=== PATIENT | male | born 1945 | race Caucasian/White ===

== ENCOUNTER 2017-06-19 16:09 | Emergency (ER) | payer OTHER ==
[~2017-06-19] VITALS: Ht 180.3 cm; Wt 121.2 kg
[~2017-06-19 16:09] MED LIST: CRDCD300 PO; HYDUNK PO; LOSA1TAB PO
[2017-06-19 16:16] VITALS: BP 168/82; PULSE 68; TEMP 36.4; O2SAT 96; Ht 180.3 cm; Wt 121.2 kg
[2017-06-19] MEDS ORDERED: CITA10TA4 PO (16:46)
[2017-06-19] MEDS ORDERED: HYT1 PO (16:46)
[2017-06-19] MEDS ORDERED: HYDR25TA5 PO (16:46)
[2017-06-19] MEDS ORDERED: DILT300C21 PO (16:46)
[2017-06-19] MEDS ORDERED: XYLOCAINE 1%/SOD BICARB 20 ML VIAL INFIL ONE (17:00)
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
== END 2017-06-19 18:48 | disposition home or self-care (01) ==
LOC: C.EDB 16:11 → C.EDD 18:48
DX: S01.01XA Laceration without foreign body of scalp, initial encounter (principal); W22.8XXA Striking against or struck by other objects, initial encounter; Y93.89 Activity, other specified; Y99.8 Other external cause status; I10 Essential (primary) hypertension; Z90.89 Acquired absence of other organs; Z79.899 Other long term (current) drug therapy

== ENCOUNTER 2017-06-30 09:35 | Emergency (ER) | payer OTHER ==
[~2017-06-30] VITALS: Ht 180.3 cm; Wt 121.7 kg
[~2017-06-30 09:35] MED LIST changes: +CITA10TA4 PO; -CRDCD300 PO; +DILT300C21 PO; +HYDR25TA5 PO; -HYDUNK PO; +HYT1 PO; -LOSA1TAB PO
[2017-06-30 09:38] VITALS: BP 168/89; PULSE 63; TEMP 36.4; O2SAT 96; Ht 180.3 cm; Wt 121.7 kg
--- NOTE | 2017-06-30 09:57 | EMERGENCY ROOM VISIT NOTE ---
ED Visit Note First contact with patient: 09:42 CHIEF COMPLAINT: Staple removal HPI: This patient returns to the ED today for removal of janis that were placed 11 days ago on the patient's head. There has been no swelling, redness, or drainage from the wound. The patient feels like the laceration is healing well. REVIEW OF SYSTEMS: A complete 6 point review of systems was reviewed with the patient with pertinent positives and negatives as per history of present illness. All else were negative. PMH: Hypertension MEDS: Citalopram, diltiazem, hydrochlorothiazide, terazosin SOCIAL HISTORY: Patient lives at home. PHYSICAL EXAM: Vital Signs: Reviewed Nurse's notes. There is a stapled wound on the top of the scalp with no signs of infection. There is no erythema, swelling, or tenderness. EMERGENCY DEPARTMENT COURSE: For janis were removed from the scalp without any difficulty and there was no separation of the wound edges. Discharge instructions reviewed, patient was discharged home in good condition. I attest that I have personally reviewed the patient's current medication list. Patient was found to have normal blood pressure on screening and does not require follow-up. Differential diagnosis includes laceration, contusion, fracture, sprain/strain, tendon or ligament injury, neurovascular compromise, foreign body, assault, closed head injury, ICH, and others DIAGNOSIS: Healing laceration and staple removal The chart was completed utilizing Draft Speech voice recognition software. Grammatical errors, random word insertions, pronoun errors, and incomplete sentences are an occasional consequence of this system due to software limitations, ambient noise, and hardware issues. Any formal questions or concerns about the content, text, or information contained within the body of this dictation should be directly addressed to the provider for clarification. Current/Historical Medications Scheduled Citalopram Hydrobromide (Citalopram Hydrobromide), 10 MG PO DAILY Diltiazem Hcl Coated Beads (Cartia Xt), 300 MG PO DAILY Hydrochlorothiazide (Hydrochlorothiazide), 25 MG PO DAILY Terazosin HCl (Terazosin HCl), 1 MG PO HS Allergies Coded Allergies: No Known Allergies (Unverified , 06/19/17) Vital Signs Date Time Temp Pulse Resp B/P (MAP) Pulse Ox O2 Delivery O2 Flow Rate FiO2 06/30/17 09:38 36.4 63 20 168/89 96 Room Air Departure Information Impression Primary Impression: Encounter for removal of janis Additional Impression: Laceration of scalp Dispostion Home / Self-Care Condition GOOD Referrals No Doctor, Assigned (PCP) Patient Instructions ED Stap Removal No Complication, My [facility] Additional Instructions You may wash the remaining crusts off of the wound. Be gentle with washing. Proper wound care is essential for adequate wound healing and infection prevention. You can shower and clean the wound with soap and water. Do not scour over the wound, pat dry with a towel. Do not submerse the wound (i.e. bathe or dish wash) until the wound has fully healed. You can use an antibiotic ointment with a dressing over the wound for the next 3-4 days. After this time you may leave the wound dry and open to the air. Ibuprofen(Motrin, Advil) may be used for fever or pain. Use 400mg every six hours as needed. Take with food. Avoid using more than 2400mg in a 24 hour period. Do not use 2400mg per day for more than three consecutive days without physician direction. Prolonged inappropriate use can lead to stomach upset or ulcers. (AND/OR) Acetaminophen(Tylenol) may be used for fever or pain. Use 500mg every six hours as needed. Avoid using more than 3000mg in a 24 hour period. Follow-up for any concerns or questions. Problem Qualifiers Additional Impression: Laceration of scalp Encounter type: initial encounter Qualified Codes: S01.01XA - Laceration without foreign body of scalp, initial encounter
== END 2017-06-30 10:08 | disposition home or self-care (01) ==
LOC: C.EDB 09:36 → C.EDA 10:08
DX: S01.01XD Laceration without foreign body of scalp, subsequent encounter (principal); X58.XXXD Exposure to other specified factors, subsequent encounter

== ENCOUNTER 2020-08-07 13:47 | Inpatient (IN) ==
[2020-08-07] MEDS ORDERED: ACETAMINOPHEN 1,000 MG/100 ML VIAL IV STA (14:44)
[2020-08-07 15:06] LABS: Basophils # (auto) 0.01 K/uL (0-0.2); Basophils % (auto) 0.1 %; Eosinophils # (auto) 0.02 K/uL (0-0.5); Eosinophils % (auto) 0.2 %; Hematocrit (blood only) 29.7 % (42-52); Hemoglobin 10.3 g/dL (14.0-18.0); Immature Granulocytes # (auto) 0.05 K/uL (0.00-0.02); Immature Granulocytes % (auto) 0.5 %; Lymphocytes # (auto) 0.53 K/uL (1.2-3.4); Lymphocytes % (auto) 4.8 %; Mean Corpuscular Hemoglobin 33.6 pg (25-34); Mean Corpuscular Hgb Conc 34.7 g/dL (32-36); Mean Corpuscular Volume 96.7 fL (80-100); Mean Platelet Volume 11.1 fL (7.4-10.4); Monocytes # (auto) 1.62 K/uL (0.11-0.59); Monocytes % (auto) 14.6 %; Neutrophils # (auto) 8.85 K/uL (1.4-6.5); Neutrophils % (auto) 79.8 %; Platelet Count 153 K/uL (130-400); RDW Coefficient of Variation 13.1 % (11.5-14.5); RDW Standard Deviation 45.4 fL (36.4-46.3); Red Blood Count 3.07 M/uL (4.7-6.1); White Blood Count 11.08 K/uL (4.8-10.8)
--- NOTE | 2020-08-07 15:14 | XRay Report ---
XR knee LT 3V CLINICAL HISTORY: Left knee pain. COMPARISON: None. 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 There are anterior skin janis. There is mild soft tissue edema. No fractures are visualized. IMPRESSION: 1. Mild diffuse soft tissue edema 2. Postsurgical changes of a total left knee arthroplasty 2. No fractures or dislocations identified. ACT 112: Negative or not required by law. Electronically signed by: Edvin Floyd M.D. 08/07/2020 3:13 PM
--- NOTE | 2020-08-07 15:17 | XRay Report ---
XR chest 1V portable HISTORY: Atypical Chest Pain COMPARISON: None. FINDINGS: There is a punctate calcified granuloma within the right lung apex. No pneumothorax. No ple ural effusions. Small patchy density at the left lung base. The heart is enlarged. There are postster notomy changes. No evidence for pulmonary edema. IMPRESSION: 1. Mild cardiomegaly. 2. Patchy density at the left lung base. This could represent atelectasis or pneumonia. ACT 112: Negative or not required by law. Electronically signed by: Sage Silva M.D. 08/07/2020 3:16 PM
--- NOTE | 2020-08-07 15:22 | Emergency Department Note ---
Impression & Plan Generalized weakness, Atrial flutter, Postoperative pain of left knee, On apixaban therapy ED Provider Note NAME: CAMERON CRUZ AGE: 75 SEX: M ARRIVES VIA: Ambulance INFORMANT: Patient, ED PROVIDER(S): Vin Dubose MD CHIEF COMPLAINT: Weakness, post-op knee pain PLAN: Disposition: Admit MEDICAL DECISION MAKING: The patient is a 75-year-old gentleman with a past medical history of PE on Eliquis, HTN, HLD, PAF, recent left total knee replacement on Friday through [facility] orthopedics discharged on Friday where he reports he has been sitting in his recliner since then unable to get up due to pain in his knee and weakness, now presents to the emergency department today accompanied by his because they feel he is unable to manage at home in his current condition. He would be agreeable for admission and inpatient rehab placement if needed. He reports some increased indigestion which reminds him of his prior PE but denies any shortness of breath. He has been taking his Eliquis since his surgery. Denies any fevers, chills, cough congestion, GI or symptoms. He reports feeling a little bit confused related to the pain medication he has been taking but denies any headaches. Denies fevers, cough, congestion, n/v/d. On arrival patient chronically ill-appearing in acute distress, afebrile with stable vital signs. His left knee is moderately swollen appropriate for his postoperative status with janis/incision site clean dry and intact. Range of motion is limited secondary to pain and in setting of his postop status. EKG demonstrates atrial flutter, 95 bpm with PVCs in setting of history of PAF. CXR with most likely atelectasis. Plain films of knee without fracture or dislocation. WBC, 11K, nonspecific. H/H 10.3/29.7 without prior for comparison. Platelets wnl. Chemistry without acidosis. Electrolytes without significant abnormality. Total bilirubin 1.5 with DB 0.4, nonspecific given no abdominal pain. LFTs without significant abnormality. Troponin negative/undetectable. UA without convincing evidence of infection. Covid-[address] head negative for acute process. Given patient's poor functional status at home following his recent surgery, he agrees with plan for admission. Case was discussed with Bonnie Grace, [facility] PAC, with Dr. Sanders [facility] hospitalist who will evaluate the patient for admission. Triage Nursing notes reviewed and agree them. Prior medical records reviewed Vital Signs: reviewed and remarkable for no significant abnormalities Differential diagnosis: Infection, dehydration, metabolic abnormality, hypo/hyperglycemia, electrolyte disturbance, anemia, hypoxia, cardiac sources, intracerebral event, toxicologic, neurologic, as well as other pathologies. ER treatment provided: See below. Diagnostics interpreted by me: ECG: Atrial flutter, 95 bpm, PVCs, incomplete RBBB, ST and TWA, no overt ST elevation. Cardiac Monitoring: An order for continuous cardiac monitoring was placed and demonstrated Atrial flutter, 95 bpm, PVCs. Laboratory studies: See below Imaging studies: See below Consultation(s): Case was discussed with Bonnie Grace [facility], with Dr. Sanders [facility] hospitalist who will evaluate the patient for admission. HPI: The patient is a 75-year-old gentleman with a past medical history of PE on Eliquis, HTN, HLD, PAF, recent left total knee replacement on Friday through [facility] orthopedics discharged on Friday where he reports he has been sitting in his recliner since then unable to get up due to pain in his knee and weakness , now presents to the emergency department today accompanied by his because they feel he is unable to manage at home in his current condition. He would be agreeable for admission and inpatient rehab placement if needed. He reports some increased indigestion which reminds him of his prior PE but denies any shortness of breath. He has been taking his Eliquis since his surgery. Denies any fevers, chills, cough congestion, GI or symptoms. He reports feeling a little bit confused related to the pain medication he has been taking but denies any headaches. Denies fevers, cough, congestion, n/v/d. ROS: See above HPI for pertinent positives & negatives. A total of 10 systems reviewed and were otherwise negative. PAST MEDICAL HISTORY:See Below PAST SURGICAL HISTORY:See Below FAMILY HISTORY:See Below SOCIAL HISTORY:See Below HOME MEDICATIONS:See Below ALLERGIES:See Below VITALS:See Below PHYSICAL EXAMINATION: GENERAL: Awake, alert, chronically ill-appearing, in no distress HENT: Normocephalic, atraumatic. Oropharynx with dry mucous membranes and otherwise unremarkable. . EYES: Normal conjunctiva. Sclera non-icteric. NECK: Supple. No nuchal rigidity. FROM. No JVD. RESPIRATORY: Clear to auscultation. CARDIAC: Regular rate, normal rhythm. Extremities warm and well perfused. Pulses equal. ABDOMEN: Soft, non-distended. No tenderness to palpation. No rebound or guarding. No masses. RECTAL: Deferred. MUSCULOSKELETAL: Chest examination reveals no tenderness. The back is symmetrical on inspection without obvious abnormality. There is no CVA tend erness to palpation. No joint edema. LOWER EXTREMITIES: left knee is moderately swollen appropriate for his postoperative status with janis/incision site clean dry and intact. Range of motion is limited secondary to pain and second in setting of his postop status. Per official Bullae on dorsum of left foot. Nikolsky negative. No surrounding erythema. NEURO: Subtle word finding difficulty which he attributes to his medications. No focal sensory or motor deficits noted. SKIN: No rash or jaundice noted. Vin Dubose MD Past Med/Surg History Medical History (Updated 08/08/20 @ 04:59 by Vin Dubose MD) CAD (coronary artery disease) Chronic back pain Colon polyps Cough FROM SINUS TROUBLE- INHALER FOR THIS Depression GERD (gastroesophageal reflux disease) Hearing deficit BL YUAN Hypertension NICOLE treated with BiPAP Osteoarthritis Sleep apnea CPAP Spinal stenosis Surgical History (Updated 08/07/20 @ 18:19 by Bonnie Combs PA-C) History of adenoidectomy History of aortic valve replacement 08/2017 - [facility] - FOLLOW W/ DR. CISNEROS History of appendectomy History of cardiac cath 08/2017 - [facility] - PRE OP CATH FOR VALVE REPLACEMENT - NO STENTS/ANGIOPLASTY - FOLLOWS W/ DR. CISNEROS History of colonoscopy History of tooth extraction Hx of CABG 08/2017 Hx of tonsillectomy Hx of vitrectomy RIGHT EYE Family History Father COPD (chronic obstructive pulmonary disease) Mother Hypertension Social History (Updated 08/07/20 @ 18:16 by Bonnie Combs PA-C) Smoking Status: Never smoker Years Smoked: 20; Smoking End Date: 1983; Second Hand Exposure: No; Do You Dip or Chew Tobacco: No; Hx Alcohol Use: No Hx Substance Use: No Preferred Language: Montserratian Communication Ability: Effective Credit Risk Associate Required: No Beliefs That Will Affect Care: None Current Living Situation: Spouse Other Information That Helps Us Care for You: No Feels Safe at Home: Yes Safety Concerns: Feels Safe At This Time Assistive Devices: Walker Allergies Allergies Allergy/AdvReac Type Severity Reaction Status Date / Time latex Allergy Mild Rash Verified 08/07/20 16:37 Home Meds Home Medications Medication Instructions Recorded Confirmed amoxicillin 500 mg PO UD PRN 05/07/18 08/07/20 aspirin 81 mg PO QAM 05/07/18 08/07/20 calcium polycarbophil [FiberCon] 1 dose PO DAILY 05/07/18 08/07/20 citalopram 20 mg PO QAM 05/07/18 08/07/20 clobetasol [Temovate] 1 applic TOPICAL DAILY PRN 05/07/18 08/07/20 diltiazem HCl 300 mg PO QAM 05/07/18 08/07/20 erythromycin 1 applic OPHTHALMIC (EYE) DAILY PRN 05/07/18 08/07/20 imiquimod [Aldara] 1 dose TOPICAL UD PRN 05/07/18 08/07/20 lactic acid 1 applic TOPICAL UD PRN 05/07/18 08/07/20 multivitamin 1 tab PO QAM 05/07/18 08/07/20 triamcinolone acetonide [Nasacort] 1 spray INTRANASAL BID 05/07/18 08/07/20 fluticasone propion-salmeterol 1 inh INHALATION BID PRN 12/01/18 08/07/20 [Advair Diskus] apixaban [Eliquis] 5 mg PO BID 08/07/20 08/07/20 ferrous sulfate 325 mg PO DAILY 08/07/20 08/07/20 ketorolac 1 drp OPR QID 08/07/20 08/07/20 rosuvastatin 5 mg PO DAILY 08/07/20 08/07/20 terazosin 2 mg PO HS 08/07/20 08/07/20 Results & Data (ED) Vital Signs Vital Signs - 24 hr 08/07/20 14:17 08/07/20 14:41 08/07/20 19:56 Temperature 37.2 C Temperature Source Oral Pulse Rate 102 H 80 90 Pulse Rhythm Irregular Irregular Pulse Strength Normal Respiratory Rate 16 16 16 Respiratory Effort / Characteristics Non-Labored Spontaneous Respiratory Depth Normal Respiratory Pattern Blood Pressure 132/82 138/88 Blood Pressure [Right Radial Artery] Blood Pressure Mean 98 Blood Pressure Mean [Right Radial Artery] Blood Pressure Position Lying Blood Pressure Position [Right Radial Artery] Pulse Oximetry 97 95 96 Oxygen Delivery Method Room Air Room Air Room Air Fraction of Inspired Oxygen Sepsis Recent Fever Within 48 Hours No Sepsis New/Unexplained Change in Mental Status N/A Sepsis Action Taken by Nursing No Action Required 08/07/20 20:30 08/07/20 20:38 08/07/20 22:00 Temperature 36.5 C Temperature Source Oral Pulse Rate 114 H 53 L Pulse Rhythm Pulse Strength Respiratory Rate 20 12 Respiratory Effort / Characteristics Non-Labored Spontaneous Non-Labored Spontaneous Respiratory Depth Normal Normal Respiratory Pattern Regular Regular Blood Pressure Blood Pressure [Right Radial Artery] 169/79 H Blood Pressure Mean Blood Pressure Mean [Right Radial Artery] 109 Blood Pressure Position Blood Pressure Position [Right Radial Artery] Sitting Pulse Oximetry 97 97 Oxygen Delivery Method BiPAP Fraction of Inspired Oxygen 21 Sepsis Recent Fever Within 48 Hours Sepsis New/Unexplained Change in Mental Status Sepsis Action Taken by Nursing 08/07/20 22:21 Temperature Temperature Source Pulse Rate 94 H Pulse Rhythm Pulse Strength Respiratory Rate Respiratory Effort / Characteristics Respiratory Depth Respiratory Pattern Blood Pressure Blood Pressure [Right Radial Artery] Blood Pressure Mean Blood Pressure Mean [Right Radial Artery] Blood Pressure Position Blood Pressure Position [Right Radial Artery] Pulse Oximetry Oxygen Delivery Method Fraction of Inspired Oxygen Sepsis Recent Fever Within 48 Hours Sepsis New/Unexplained Change in Mental Status Sepsis Action Taken by Nursing Laboratory Data Result diagrams: 08/07/20 14:50 08/07/20 14:50 Lab Results 08/07/20 08/07/20 08/07/20 Range/Units 14:50 14:50 14:50 WBC 11.08 H (4.8-10.8) K/uL RBC 3.07 L (4.7-6.1) M/uL Hgb 10.3 L (14.0-18.0) g/dL Hct 29.7 L (42-52) % MCV 96.7 (80-100) fL MCH 33.6 (25-34) pg MCHC 34.7 (32-36) g/dL RDW Std Deviation 45.4 (36.4-46.3) fL RDW Coeff of Ej 13.1 (11.5-14.5) % Plt Count 153 (130-400) K/uL MPV 11.1 H (7.4-10.4) fL Immature Gran % (Auto) 0.5 % Neut % (Auto) 79.8 % Lymph % (Auto) 4.8 % [place] % (Auto) 14.6 % Eos % (Auto) 0.2 % Baso % (Auto) 0.1 % Neut # (Auto) 8.85 H (1.4-6.5) K/uL Lymph # (Auto) 0.53 L (1.2-3.4) K/uL [place] # (Auto) 1.62 H (0.11-0.59) K/uL Eos # (Auto) 0.02 (0-0.5) K/uL Baso # (Auto) 0.01 (0-0.2) K/uL Immature Gran # (Auto) 0.05 H (0.00-0.02) K/uL ESR (0-20) mm/hr Sodium 134 L (136-145) mmol/L Potassium 4.3 (3.5-5.1) mmol/L Chloride 101 (98-107) mmol/L Carbon Dioxide 24 (21-32) mmol/L Anion Gap 9.0 (3-11) BUN 24 H (7-18) mg/dl Creatinine 1.34 (0.6-1.4) mg/dl Est Cr Clr Drug Dosing Not Reportable Est GFR ( Amer) 59.2 ml/min Est GFR (Non-Af Amer) 51.1 ml/min BUN/Creatinine Ratio 18.2 (10-20) Glucose 131 H (70-99) mg/dl Calcium 9.0 (8.5-10.1) mg/dl Phosphorus 2.4 L (2.5-4.9) mg/dl Magnesium 2.5 H (1.8-2.4) mg/dl Total Bilirubin 1.5 H (0.2-1) mg/dl Direct Bilirubin 0.4 H (0-0.2) mg/dl AST 23 (15-37) U/L ALT 15 (12-78) U/L Alkaline Phosphatase 77 (45-117) U/L Troponin I < 0.015 (0-0.045) ng/ml C-Reactive Protein (0-0.29) mg/dl Total Protein 7.5 (6.4-8.2) gm/dl Albumin 3.0 L (3.4-5.0) gm/dl Globulin 4.5 H (2.5-4.0) gm/dl Albumin/Globulin Ratio 0.7 L (0.9-2) Lipase 47 L (73-393) U/L Procalcitonin (0-0.5) ng/ml Urine Color Urine Appearance (Clear) Urine pH (4.5-7.5) Ur Specific [place] (1.000-1.030) Urine Protein (Negative) Urine Glucose (UA) (Negative) Urine Ketones (Negative) Urine Blood (Negative) Urine Nitrite (Negative) Urine Bilirubin (Negative) Urine Urobilinogen (Negative) Ur Leukocyte Esterase (Negative) Urine WBC (Auto) (0-5) /hpf Urine RBC (Auto) (0-4) /hpf U Hyaline Cast (Auto) (0-5) /lpf U Epithel Cells (Auto) (0-5) /lpf Urine Bacteria (Auto) (Negative) COVID-19 Eval Order Covid19 at [facility] SARS-CoV-2 (PCR) (Negative) 08/07/20 08/07/20 08/07/20 Range/Units 14:50 14:50 14:50 WBC (4.8-10.8) K/uL RBC (4.7-6.1) M/uL Hgb (14.0-18.0) g/dL Hct (42-52) % MCV (80-100) fL MCH (25-34) pg MCHC (32-36) g/dL RDW Std Deviation (36.4-46.3) fL RDW Coeff of Ej (11.5-14.5) % Plt Count (130-400) K/uL MPV (7.4-10.4) fL Immature Gran % (Auto) % Neut % (Auto) % Lymph % (Auto) % [place] % (Auto) % Eos % (Auto) % Baso % (Auto) % Neut # (Auto) (1.4-6.5) K/uL Lymph # (Auto) (1.2-3.4) K/uL [place] # (Auto) (0.11-0.59) K/uL Eos # (Auto) (0-0.5) K/uL Baso # (Auto) (0-0.2) K/uL Immature Gran # (Auto) (0.00-0.02) K/uL ESR 74 H (0-20) mm/hr Sodium (136-145) mmol/L Potassium (3.5-5.1) mmol/L Chloride (98-107) mmol/L Carbon Dioxide (21-32) mmol/L Anion Gap (3-11) BUN (7-18) mg/dl Creatinine (0.6-1.4) mg/dl Est Cr Clr Drug Dosing Est GFR ( Amer) ml/min Est GFR (Non-Af Amer) ml/min BUN/Creatinine Ratio (10-20) Glucose (70-99) mg/dl Calcium (8.5-10.1) mg/dl Phosphorus (2.5-4.9) mg/dl Magnesium (1.8-2.4) mg/dl Total Bilirubin (0.2-1) mg/dl Direct Bilirubin (0-0.2) mg/dl AST (15-37) U/L ALT (12-78) U/L Alkaline Phosphatase (45-117) U/L Troponin I (0-0.045) ng/ml C-Reactive Protein (0-0.29) mg/dl Total Protein (6.4-8.2) gm/dl Albumin (3.4-5.0) gm/dl Globulin (2.5-4.0) gm/dl Albumin/Globulin Ratio (0.9-2) Lipase (73-393) U/L Procalcitonin 0.21 (0-0.5) ng/ml Urine Color Urine Appearance (Clear) Urine pH (4.5-7.5) Ur Specific [place] (1.000-1.030) Urine Protein (Negative) Urine Glucose (UA) (Negative) Urine Ketones (Negative) Urine Blood (Negative) Urine Nitrite (Negative) Urine Bilirubin (Negative) Urine Urobilinogen (Negative) Ur Leukocyte Esterase (Negative) Urine WBC (Auto) (0-5) /hpf Urine RBC (Auto) (0-4) /hpf U Hyaline Cast (Auto) (0-5) /lpf U Epithel Cells (Auto) (0-5) /lpf Urine Bacteria (Auto) (Negative) COVID-19 Eval Order SARS-CoV-2 (PCR) NEGATIVE (Negative) 08/07/20 08/07/20 Range/Units 14:50 15:15 WBC (4.8-10.8) K/uL RBC (4.7-6.1) M/uL Hgb (14.0-18.0) g/dL Hct (42-52) % MCV (80-100) fL MCH (25-34) pg MCHC (32-36) g/dL RDW Std Deviation (36.4-46.3) fL RDW Coeff of Ej (11.5-14.5) % Plt Count (130-400) K/uL MPV (7.4-10.4) fL Immature Gran % (Auto) % Neut % (Auto) % Lymph % (Auto) % [place] % (Auto) % Eos % (Auto) % Baso % (Auto) % Neut # (Auto) (1.4-6.5) K/uL Lymph # (Auto) (1.2-3.4) K/uL [place] # (Auto) (0.11-0.59) K/uL Eos # (Auto) (0-0.5) K/uL Baso # (Auto) (0-0.2) K/uL Immature Gran # (Auto) (0.00-0.02) K/uL ESR (0-20) mm/hr Sodium (136-145) mmol/L Potassium (3.5-5.1) mmol/L Chloride (98-107) mmol/L Carbon Dioxide (21-32) mmol/L Anion Gap (3-11) BUN (7-18) mg/dl Creatinine (0.6-1.4) mg/dl Est Cr Clr Drug Dosing Est GFR ( Amer) ml/min Est GFR (Non-Af Amer) ml/min BUN/Creatinine Ratio (10-20) Glucose (70-99) mg/dl Calcium (8.5-10.1) mg/dl Phosphorus (2.5-4.9) mg/dl Magnesium (1.8-2.4) mg/dl Total Bilirubin (0.2-1) mg/dl Direct Bilirubin (0-0.2) mg/dl AST (15-37) U/L ALT (12-78) U/L Alkaline Phosphatase (45-117) U/L Troponin I (0-0.045) ng/ml C-Reactive Protein 21.60 H (0-0.29) mg/dl Total Protein (6.4-8.2) gm/dl Albumin (3.4-5.0) gm/dl Globulin (2.5-4.0) gm/dl Albumin/Globulin Ratio (0.9-2) Lipase (73-393) U/L Procalcitonin (0-0.5) ng/ml Urine Color Yellow Urine Appearance Clear (Clear) Urine pH 5.5 (4.5-7.5) Ur Specific [place] 1.015 (1.000-1.030) Urine Protein 1+ H (Negative) Urine Glucose (UA) Negative (Negative) Urine Ketones Negative (Negative) Urine Blood 1+ H (Negative) Urine Nitrite Negative (Negative) Urine Bilirubin Negative (Negative) Urine Urobilinogen Negative (Negative) Ur Leukocyte Esterase Negative (Negative) Urine WBC (Auto) 1-5 (0-5) /hpf Urine RBC (Auto) 5-10 H (0-4) /hpf U Hyaline Cast (Auto) 1-5 (0-5) /lpf U Epithel Cells (Auto) 0-5 (0-5) /lpf Urine Bacteria (Auto) Negative (Negative) COVID-19 Eval Order SARS-CoV-2 (PCR) (Negative) Administered Medications Apixaban (Apixaban 5 Mg Tablet) 5 mg PO BID [facility] Stop: 09/06/20 21:59 Last Admin: 08/08/20 01:12 Dose: Not Given Documented by: [id number] Famotidine (Famotidine 10 Mg Tablet) 10 mg PO BID [facility] Stop: 09/06/20 21:59 Last Admin: 08/07/20 23:04 Dose: 10 mg Documented by: [id number] Ceftriaxone Sodium 2,000 mg/ (Dextrose) 70 mls @ 100 mls/hr IV Q24H [facility]; Protocol Stop: 08/14/20 22:59 Last Infusion: 08/08/20 00:00 Dose: 0 mls/hr Documented by: [id number] Admin: 08/07/20 23:18 Dose: 100 mls/hr Documented by: [id number] Ketorolac Tromethamine (Ketorolac 0.5% Op Soln 5 Ml Btl) 1 drops OPR QID [facility] Stop: 09/06/20 22:59 Last Admin: 08/07/20 23:08 Dose: 1 drops Documented by: [id number] Terazosin HCl (Terazosin Hcl 1 Mg Cap) 2 mg PO HS [facility] Stop: 09/06/20 21:59 Last Admin: 08/07/20 23:04 Dose: 2 mg Documented by: [id number] Triamcinolone Acetonide (Triamcinolone Acet Nasal [place] 10.8ml Btl) 1 sprays JAROD BID [place] Stop: 09/06/20 21:59 Last Admin: 08/07/20 23:07 Dose: 1 sprays Documented by: [id number] Discontinued Medications Acetaminophen (Ofirmev) 1,000 mg in 100 mls @ 400 mls/hr IV NOW STA Stop: 08/07/20 14:58 Last Infusion: 08/07/20 15:31 Dose: 0 mls/hr Documented by: [id number] Admin: 08/07/20 15:15 Dose: 400 mls/hr Documented by: [id number] Vancomycin HCl 2,000 mg/ (Sodium Chloride) 540 mls @ 200 mls/hr IV NOW STA Stop: 08/08/20 01:11 Last Infusion: 08/08/20 03:08 Dose: 0 mls/hr Documented by: [id number] Admin: 08/08/20 00:26 Dose: 200 mls/hr Documented by: [id number] Ioversol (Optiray 350 500ml) 117 ml IV ONCE ONE Stop: 08/07/20 18:57 Last Admin: 08/07/20 18:56 Dose: 1 ml Documented by: [id number] Miscellaneous (Patient's Height And/Or Weight Needed) 1 ea N/A Q15M [place] Stop: 09/06/20 22:29 Last Admin: 08/07/20 23:48 Dose: 1 ea Documented by: [id number] Admin: 08/07/20 23:11 Dose: 1 ea Documented by: [id number] Admin: 08/07/20 23:10 Dose: 1 ea Documented by: [id number] Imaging Data Radiologist's Impression: Head CT 08/07/20 14:41 CT OF THE HEAD WITHOUT CONTRAST CLINICAL HISTORY: confusion, on Eliquis COMPARISON STUDY: Head CT December 27, 2014. CT DOSE: 614.27 mGy.cm TECHNIQUE: Helical axial images of the head were obtained without IV contrast. Automated exposure control was utilized for the study. A dose lowering t echnique was utilized adhering to the principles of ALARA. FINDINGS: No acute intracranial hemorrhage, midline shift or mass effect is present. The ventricular system is unremarkable. White matter hypodensity suggests small vessel disease. The basal cisterns are patent. No extra-axial collections are present. There are no findings to suggest acute dural sinus thrombosis or acute territorial infarct. No significant calvarial abnormalities are present. Visualized portions of the sinuses and mastoid air cells are clear. IMPRESSION: No acute intracranial findings. ACT 112: Negative or not required by law. Electronically signed by: Sulaiman Diaz M.D. 08/07/2020 4:59 PM Venous Doppler Study 08/07/20 17:53 LEFT LOWER EXTREMITY VENOUS DOPPLER CLINICAL HISTORY: swelling COMPARISON STUDY: No previous studies for comparison. TECHNIQUE: Sonography of the deep venous system of the left lower extremity was performed. Compression and augmentation were evaluated. FINDINGS: The left common femoral, superficial femoral and popliteal veins were compressible. Augmentation was normal. Flow was shown within the deep calf vessels. IMPRESSION: No evidence of deep venous thrombus within the left lower extremity. ACT 112: Negative or not required by law. Electronically signed by: Sulaiman Diaz M.D. 08/07/2020 6:45 PM Chest CTA 08/07/20 17:54 CT ANGIOGRAPHY OF THE CHEST, PULMONARY EMBOLUS PROTOCOL CLINICAL HISTORY: Shortness of breath. Evaluate for pulmonary embolus. COMPARISON STUDY: Chest radiograph July 20, 2008 and August 07, 2020. TECHNIQUE: Following IV administration of 117 mL of Optiray, helical axial images of the chest were obtained utilizing the pulmonary embolus protocol. Maximal intensity projections and sagittal and coronal reformats were viewed on an independent 3D workstation. IV contrast was administered without complication. Automated exposure control was utilized for the study. A dose lowering technique was utilized adhering to the principles of ALARA. CT DOSE: 960.64 mGy.cm FINDINGS: No pulmonary emboli are identified. There is mild dilatation of the central pulmonary arteries. There are median sternotomy wires and postoperative findings from bypass grafting. Moderate cardiomegaly is noted. There is no thoracic aortic dissection. Extensive coronary artery calcification is present. There is mild wall thickening of the distal esophagus with a small possible small hiatal hernia. There is a mildly enlarged subcarinal lymph node that measures 1.3 cm in short axis diameter. No pneumothorax or pleural effusion is noted. There is no consolidation to suggest pneumonia. The central airways are patent. No suspicious lesions or acute fractures are identified within the visualized skeletal structures. Pancreatic glandular atrophy is noted. IMPRESSION: 1. No pulmonary emboli identified. 2. No consolidation to suggest pneumonia. 3. Mild distal esophageal wall thickening which is nonspecific but favors esophagitis. 4. Mildly enlarged subcarinal lymph node is also nonspecific. A follow-up chest CT in 6 months is recommended. 5. Moderate cardiomegaly. Dilatation of the central pulmonary arteries which raises the possibility of pulmonary arterial hypertension. ACT 112: Negative or not required by law. Electronically signed by: Sulaiman Diaz M.D. 08/07/2020 7:46 PM Discharge Plan Visit Data Chief Complaint: Knee Injury/Pain Stated Complaint: L KNEE PAIN ED Provider: Vin Dubose Discharge Problem: Generalized weakness, Atrial flutter, Postoperative pain of left knee, On apixaban therapy Patient Disposition: Admitted As Inpatient Discharge Instructions Interventions: ED Discharge Assessment Last Done: 08/07/20 19:56
[2020-08-07 15:24] LABS: Alanine Aminotransferase 15 U/L (12-78); Aspartate Aminotransferase 23 U/L (15-37); BUN Creatinine Ratio 18.2 (10-20); Bilirubin Direct 0.4 mg/dl (0-0.2); Blood Urea Nitrogen 24 mg/dl (7-18); Carbon Dioxide 24 mmol/L (21-32); Chloride 101 mmol/L (98-107); Est GFR (African American) 59.2 ml/min; Est GFR (Non-African American) 51.1 ml/min; Glucose 131 mg/dl (70-99); Lipase 47 U/L (73-393); Magnesium 2.5 mg/dl (1.8-2.4); Potassium 4.3 mmol/L (3.5-5.1); Sodium 134 mmol/L (136-145)
[2020-08-07 15:27] LABS: Albumin Globulin Ratio 0.7 (0.9-2); Alkaline Phosphatase 77 U/L (45-117); Bilirubin,Total 1.5 mg/dl (0.2-1); Globulin 4.5 gm/dl (2.5-4.0); Phosphorus 2.4 mg/dl (2.5-4.9); Total Protein 7.5 gm/dl (6.4-8.2); Troponin I < 0.015 ng/ml (0-0.045)
[2020-08-07 15:29] LABS: Appearance Urine Clear (Clear); Bacteria Urine Automated Negative (Negative); Bilirubin Urine Negative (Negative); Blood Urine 1+ (Negative); Color Urine Yellow; Epithelial Cell Urine Auto 0-5 /lpf (0-5); Glucose Urine UA Negative (Negative); Ketones Urine Negative (Negative); Leukocyte Esterase Urine Negative (Negative); Nitrite Urine Negative (Negative); Protein Urine 1+ (Negative); Specific Gravity Urine 1.015 (1.000-1.030); Urobilinogen Urine Negative (Negative); pH Urine 5.5 (4.5-7.5)
--- NOTE | 2020-08-07 17:00 | CT Scan Report ---
CT OF THE HEAD WITHOUT CONTRAST CLINICAL HISTORY: confusion, on Eliquis COMPARISON STUDY: Head CT December 27, 2014. CT DOSE: 614.27 mGy.cm TECHNIQUE: Helical axial images of the head were obtained without IV contrast. Automated exposure con trol was utilized for the study. A dose lowering technique was utilized adhering to the principles o f ALARA. FINDINGS: No acute intracranial hemorrhage, midline shift or mass effect is present. The ventricular system is unremarkable. White matter hypodensity suggests small vessel disease. The basal cisterns ar e patent. No extra-axial collections are present. There are no findings to suggest acute dural sinus thrombosis or acute territorial infarct. No significant calvarial abnormalities are present. Visualiz ed portions of the sinuses and mastoid air cells are clear. IMPRESSION: No acute intracranial findings. ACT 112: Negative or not required by law. Electronically signed by: Sulaiman Diaz M.D. 08/07/2020 4:59 PM
--- NOTE | 2020-08-07 18:26 | History & Physical Report ---
Date of Service August 07, 2020 Assessment & Plan (1) Cellulitis of left leg: (2) Infection of prosthetic knee joint: (3) Fall: (4) Status post total knee replacement, left: (5) Ambulatory dysfunction: This is a 75-year-old male who has significant past medical history of CAD status post CABG x2, bioprosthetic AVR replacement, moderate aortic root enlargement 4.6 cm, HTN, HLD, post knee replacement DVT PE, history of pulmonary nodules, anticoagulated on Eliquis, NICOLE on BiPAP, PAF, CKD stage III, BPH, morbid obesity, asthma who presents to ED secondary to left knee pain inability to ambulate x3 days. He does not meet SIRS criteria per current CMS guidelines Admit to med tele CTA chest/LLE DVT negative for PE/DVT consult PT/OT/case management, pt likely to need rehab placement obtain esr/crp knee xray shows post surgical changes of L tka consult orthopedics Hyponatremia/Hypophosphatemia mild, na 134, phos 2.4 likely due to poor po intake encourage oral intake repeat in am Prolonged QTC monitor ecg avoid qtc prolonging agents Abnormal CT Chest Mild distal esophageal wall thickening which is nonspecific but favors esophagitis. Mildly enlarged subcarinal lymph node is also nonspecific. A follow-up chest CT in 6 months is recommended Pt with increased belching, CT showing mild esophagitis add [id number] (6) Atrial flutter: Patient with documented PAF per Dr. Cisneros's note on 05/22/2020 He had episode of A. fib April 2020. He underwent [address] monitor and was in atrial fibrillation with conversion to sinus rhythm on day 6 of 7. Echocardiogram 05/21 55%, grade 2 diastolic dysfunction, left atrium moderately enlarged, right atrium mildly enlarged, AVR bioprosthetic, pulmonary arterial systolic pressure 30-35 At time of diagnosis patient was already anticoagulated on Eliquis secondary to postoperative DVT/PE He continues to remain rate and rhythm controlled on diltiazem Continue Eliquis Consult cardiology (7) Atelectasis: LLL CTA chest to r/o PE, can also eval for evidence of PNA pt with cough since surgery, productive white sputum, afebrile obtain procalcitonin encourage incentive spirometry (8) CAD (coronary artery disease): History of CABG x2 with WOLF to LAD, SVG to diagonal and bioprosthetic AVR secondary to severe aortic valve stenosis August 2017 Follows [facility] cardiology, Dr. Cisneros Currently denies chest pain or shortness of breath, EKG reveals atrial flutter, patient with known history of PAF Continue ASA, rosuvastatin, diltiazem and Eliquis Daily EKG (9) NICOLE treated with BiPAP: bipap at HS (10) Morbid obesity: Patient will obese, weight 101 kg Diet life modifications Consult dietitian (11) DVT prophylaxis: continue eliquis Dispo: med tele PCP: Dirk FULL CODE Pt was seen and examined in collaboration with Dr. Sanders, please see addendum History of Present Illness Chief Complaint: Left knee pain and inability to ambulate x3 days. Primary Care Provider: Dr. Cavazos This is a 75-year-old male who has significant past medical history of CAD status post CABG x2, bioprosthetic AVR replacement, moderate aortic root enlargement 4.6 cm, HTN, HLD, post knee replacement DVT PE, history of pulmonary nodules, anticoagulated on Eliquis, NICOLE on BiPAP, PAF, CKD stage III, BPH, morbid obesity, asthma who presents to ED secondary to left knee pain inability to ambulate x3 days. Of significance patient underwent left total knee replacement on 08/[address] Caicedo at [facility]. He was discharged to home on 08/04 and upon returning home when he was trying to get out of the car he fell on his left knee and hit it on the curb. He had called fire department to assist him in getting up. When the fire department got him into the house they placed him in a recliner. Throughout the night at approximately 2 AM his recliner collapsed and he has been unable to get out of the recliner since. He summoned EMS due to increased left knee pain, swelling and inability to ambulate. He lives at home with his who he states is also disabled and a, "invalid." He has been able to take oxycodone which has been helping his pain. He does complain of, "burpitis." He has frequent belching and chest tightness which he states, "this feels very similar to when I had a PE after my right knee surgery." He denies any cookie chest pain or shortness of breath. He does elicit a cough that is been present since surgery, productive and white mucus. Overall he has had minimal appetite since and able to walk. He has not seen physical therapy or occupational therapy since being discharged from the hospital. He has not been in contact with his surgeon. He denies any fever, chills, sweats, lightheadedness, dizziness, shortness of breath, vomiting, abdominal pain, diarrhea, dysuria, increased urgency or frequency with urination. In ED patient remained hemodynamically stable. Knee x-ray reveals postsurgical changes of the left TKR. His CBC was consistent with mild elevation WBC 11.08, H&H 10.3 and 29.7, platelet 153, sodium 134, BUN 24, creatinine 1.34, Phos 2.4, mag 2.5, albumin 3.0. His urinalysis was negative.Head CT was negative.Chest x-ray revealed a patchy density in the left lung base which could represent atelectasis or pneumonia. Patient was recommended for admission due to inability to ambulate and for PT OT evaluation. Allergies Allergy/AdvReac Type Severity Reaction Status Date / Time latex Allergy Mild Rash Verified 08/07/20 16:37 Home Medications Medication Instructions Recorded Confirmed Type amoxicillin 500 mg PO UD PRN 05/07/18 08/07/20 History aspirin 81 mg PO QAM 05/07/18 08/07/20 History calcium polycarbophil [FiberCon] 1 dose PO DAILY 05/07/18 08/07/20 History citalopram 20 mg PO QAM 05/07/18 08/07/20 History clobetasol [Temovate] 1 applic TOPICAL DAILY PRN 05/07/18 08/07/20 History diltiazem HCl 300 mg PO QAM 05/07/18 08/07/20 History erythromycin 1 applic OPHTHALMIC (EYE) DAILY PRN 05/07/18 08/07/20 History imiquimod [Aldara] 1 dose TOPICAL UD PRN 05/07/18 08/07/20 History lactic acid 1 applic TOPICAL UD PRN 05/07/18 08/07/20 History multivitamin 1 tab PO QAM 05/07/18 08/07/20 History triamcinolone acetonide [Nasacort] 1 spray INTRANASAL BID 05/07/18 08/07/20 History fluticasone propion-salmeterol 1 inh INHALATION BID PRN 12/01/18 08/07/20 History [Advair Diskus] apixaban [Eliquis] 5 mg PO BID 08/07/20 08/07/20 History ferrous sulfate 325 mg PO DAILY 08/07/20 08/07/20 History ketorolac 1 drp OPR QID 08/07/20 08/07/20 History rosuvastatin 5 mg PO DAILY 08/07/20 08/07/20 History terazosin 2 mg PO HS 08/07/20 08/07/20 History Past Med/Surg History Medical History (Updated 08/07/20 @ 22:31 by Lena Sanders, DO) CAD (coronary artery disease) Chronic back pain Colon polyps Cough FROM SINUS TROUBLE- INHALER FOR THIS Depression GERD (gastroesophageal reflux disease) Hearing deficit BL YUAN Hypertension NICOLE treated with BiPAP Osteoarthritis Sleep apnea CPAP Spinal stenosis Surgical History (Updated 08/07/20 @ 18:19 by Bonnie Combs PA-C) History of adenoidectomy [facility] DR. C[facility] History of appendectomy History of cardiac cath 08/2017 - [facility] - PRE OP CATH FOR VALVE REPLACEMENT - NO STENTS/ANGIOPLASTY - FOLLOWS W/ DR. ICSNEROS History of colonoscopy History of tooth extraction Hx of CABG 08/2017 Hx of tonsillectomy Hx of vitrectomy RIGHT EYE Family History Father COPD (chronic obstructive pulmonary disease) Mother Hypertension Social History (Updated 08/07/20 @ 18:16 by Bonnie Combs PA-C) Smoking Status: Former smoker Years Smoked: 20; Smoking End Date: 1983; Second Hand Exposure: No; Hx Alcohol Use: Yes Alcohol type: beer Alcohol Intake Frequency: Monthly or Less Hx Substance Use: No Preferred Language: Nepali Communication Ability: Effective Culinary Artist Required: No Beliefs That Will Affect Care: None Current Living Situation: Spouse Feels Safe at Home: Yes Assistive Devices: Contacts, Glasses and Hearing Aid - Bilateral Review of Systems Review of Systems: All systems reviewed & are unremarkable except as noted in HPI & below Physical Exam Physical Exam: Constitutional: WD/WN, morbidly obese, male, vitals as above, NAD, sitting up in bed, pleasant, conversing easily Head: Normocephalic, Atraumatic Eyes: PERRL, conjunctivae normal, anicteric sclerae ENMT: external ear and nose normal, oropharynx normal Neck: trachea midline, no thyromegaly normal visual inspection Respiratory: normal respiratory effort, lungs clear to auscultation, no wheeze, rales, rhonchi. Normal insp/exp effort, no accessory muscle use Cardiovascular: Irregular rate, irregular rhythm, no murmur, +3 left lower e xtremity pitting edema, left knee janis intact, surrounding erythema and warmth, negative Homans, lateral pedal pulse +2 vessels: no JVD or carotid bruit Chest: normal inspection of chest Abdomen: Obese abdomen, normal bowel sounds, soft, nontender, no hepatosplenomegaly Musculoskeletal: no cyanosis or clubbing, extremities motor strength 5/5 Skin: no rashes, warm and dry normal turgor Neurologic: PERRL, EOMI, accommodation nl, no face palsy, no dysarthria CN's II-XI intact bilaterally and moves all extremities Psychiatric: A+Ox3, euthymic affect Lymphatic: no cervical or axillary lymphadenopathy : deferred Results & Data Results & Data ([facility]) Vital Signs (Past 12 Hours) Vital Signs Temp Pulse Resp BP Pulse Ox 08/07/20 14:41 80 16 95 08/07/20 14:17 37.2 C 102 H 16 132/82 97 Diagnostic Findings Chest X-Ray 08/07/20 14:41 XR chest 1V portable HISTORY: Atypical Chest Pain COMPARISON: None. FINDINGS: There is a punctate calcified granuloma within the right lung apex. No pneumothorax. No pleural effusions. Small patchy density at the left lung base. The heart is enlarged. There are poststernotomy changes. No evidence for pulmonary edema. IMPRESSION: 1. Mild cardiomegaly. 2. Patchy density at the left lung base. This could represent atelectasis or pneumonia. ACT 112: Negative or not required by law. Electronically signed by: Sage Silva M.D. 08/07/2020 3:[address] 08/07/20 14:41 CT OF THE HEAD WITHOUT CONTRAST CLINICAL HISTORY: confusion, on Eliquis COMPARISON STUDY: Head CT December 27, 2014. CT DOSE: 614.27 mGy.cm TECHNIQUE: Helical axial images of the head were obtained without IV contrast. Automated exposure control was utilized for the study. A dose lowering techn ique was utilized adhering to the principles of ALARA. FINDINGS: No acute intracranial hemorrhage, midline shift or mass effect is present. The ventricular system is unremarkable. White matter hypodensity suggests small vessel disease. The basal cisterns are patent. No extra-axial collections are present. There are no findings to suggest acute dural sinus thrombosis or acute territorial infarct. No significant calvarial abnormalities are present. Visualized portions of the sinuses and mastoid air cells are clear. IMPRESSION: No acute intracranial findings. ACT 112: Negative or not required by law. Electronically signed by: Sulaiman Diaz M.D. 08/07/2020 4:59 PM Knee X-Ray 08/07/20 14:41 XR knee LT 3V CLINICAL HISTORY: Left knee pain. COMPARISON: None. 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 There are anterior skin janis. There is mild soft tissue edema. No fractures are visualized. IMPRESSION: 1. Mild diffuse soft tissue edema 2. Postsurgical changes of a total left knee arthroplasty 2. No fractures or dislocations identified. ACT 112: Negative or not required by law. Electronically signed by: Edvin Floyd M.D. 08/07/2020 3:13 PM Medications Administered Medication List Discontinued Medications Acetaminophen (Ofirmev) 1,000 mg in 100 mls @ 400 mls/hr IV NOW STA Stop: 08/07/20 14:58 Last Infusion: 08/07/20 15:31 Dose: 0 mls/hr Documented by: [id number] Admin: 08/07/20 15:15 Dose: 400 mls/hr Documented by: [id number] ECG Rate (beats per minute): 95 Rhythm: atrial flutter COVID-19 Results Results COVID-19 Adm Lab Results: RBC 3.07 M/uL (4.7-6.1) L 08/07/20 WBC 11.08 K/uL (4.8-10.8) H 08/07/20 Hgb 10.3 g/dL (14.0-18.0) L 08/07/20 Hct 29.7 % (42-52) L 08/07/20 Plt Count 153 K/uL (130-400) 08/07/20 Neutrophils (%) (Auto) 79.8 % 08/07/20 Lymphocytes (%) (Auto) 4.8 % 08/07/20 Monocytes # (Auto) 1.62 K/uL (0.11-0.59) H 08/07/20 Eosinophils # (Auto) 0.02 K/uL (0-0.5) 08/07/20 Immature Granulocyte % (Auto) 0.5 % 08/07/20 Neutrophils # (Auto) 8.85 K/uL (1.4-6.5) H 08/07/20 Lymphocytes # (Auto) 0.53 K/uL (1.2-3.4) L 08/07/20 Monocytes # (Auto) 1.62 K/uL (0.11-0.59) H 08/07/20 Eosinophils # (Auto) 0.02 K/uL (0-0.5) 08/07/20 Basophils # (Auto) 0.01 K/uL (0-0.2) 08/07/20 Immature Granulocyte # (Auto) 0.05 K/uL (0.00-0.02) H 08/07/20 Na 134 mmol/L (136-145) L 08/07/20 K 4.3 mmol/L (3.5-5.1) 08/07/20 Cl 101 mmol/L (98-107) 08/07/20 CO2 24 mmol/L (21-32) 08/07/20 Anion Gap 9.0 (3-11) 08/07/20 BUN 24 mg/dl (7-18) H 08/07/20 Creatinine 1.34 mg/dl (0.6-1.4) 08/07/20 BUN/Creatinine Ratio 18.2 (10-20) 08/07/20 Glucose Level 131 mg/dl (70-99) H 08/07/20 Ca 9.0 mg/dl (8.5-10.1) 08/07/20 Phosphorus Level 2.4 mg/dl (2.5-4.9) L 08/07/20 Total Bilirubin 1.5 mg/dl (0.2-1) H 08/07/20 Direct Bilirubin 0.4 mg/dl (0-0.2) H 08/07/20 AST/SGOT 23 U/L (15-37) 08/07/20 ALT/SGPT 15 U/L (12-78) 08/07/20 Alkaline Phosphatase 77 U/L (45-117) 08/07/20 Total Protein 7.5 gm/dl (6.4-8.2) 08/07/20 Albumin 3.0 gm/dl (3.4-5.0) L 08/07/20 Globulin 4.5 gm/dl (2.5-4.0) H 08/07/20 Albumin/Globulin Ratio 0.7 (0.9-2) L 08/07/20 Troponin I < 0.015 ng/ml (0-0.045) 08/07/20 CRP 21.60 mg/dl (0-0.29) H 08/07/20 Procalcitonin 0.21 ng/ml (0-0.5) 08/07/20 COVID-19 PCR NEGATIVE (Negative) 08/07/20 Chest X-Ray 08/07/20 Code Status & VTE Plan Code Status Full Code VTE Prophylaxis Plan VTE Prophylaxis will be ordered: Yes Supervising Physician Co-Signing Physician Notes I have seen and examined the patient and have discussed the case with the provider above. I agree with the assessment and plan as stated with the following exceptions. The patient is a 75-year-old man status post left knee replacement on August 02, 2020 who subsequently came home from his surgery 2 days later and fell on the sidewalk while trying to maneuver into his home. Since that time he has had pain and decreased range of motion. Although he is currently not meeting SIRS criteria and has a white blood cell count of 11 K, on physical exam his left knee is significantly swollen as is his left leg and thigh up to his left scrotum. There is significant erythema around the surgical site infection tracking up the medial left thigh up into the scrotum area and in the posterior thigh area. His left thigh and knee are very warm to the touch compared to the other leg. This is concerning for a prosthetic joint infection with associated cellulitis. Wound culture was obtained and empiric antibiotics were started with vancomycin and ceftriaxone. Orthopedics was consulted. Pain is manageable. Physical exam is otherwise unremarkable. Discussed case with primary nurse who was at bedside. DO Tommy
--- NOTE | 2020-08-07 18:46 | Ultrasound Report ---
LEFT LOWER EXTREMITY VENOUS DOPPLER CLINICAL HISTORY: swelling COMPARISON STUDY: No previous studies for comparison. TECHNIQUE: Sonography of the deep venous system of the left lower extremity was performed. Compressi on and augmentation were evaluated. FINDINGS: The left common femoral, superficial femoral and popliteal veins were compressible. Augmen tation was normal. Flow was shown within the deep calf vessels. IMPRESSION: No evidence of deep venous thrombus within the left lower extremity. ACT 112: Negative or not required by law. Electronically signed by: Sulaiman Diaz M.D. 08/07/2020 6:45 PM
[2020-08-07] MEDS ORDERED: OPTIRAY 350 500ml IV ONE (18:56)
--- NOTE | 2020-08-07 19:48 | CT Scan Report ---
CT ANGIOGRAPHY OF THE CHEST, PULMONARY EMBOLUS PROTOCOL CLINICAL HISTORY: Shortness of breath. Evaluate for pulmonary embolus. COMPARISON STUDY: Chest radiograph July 20, 2008 and August 07, 2020. TECHNIQUE: Following IV administration of 117 mL of Optiray, helical axial images of the chest were o btained utilizing the pulmonary embolus protocol. Maximal intensity projections and sagittal and cor onal reformats were viewed on an independent 3D workstation. IV contrast was administered without co mplication. Automated exposure control was utilized for the study. A dose lowering technique was ut ilized adhering to the principles of ALARA. CT DOSE: 960.64 mGy.cm FINDINGS: No pulmonary emboli are identified. There is mild dilatation of the central pulmonary gracia narciso. There are median sternotomy wires and postoperative findings from bypass grafting. Moderate car diomegaly is noted. There is no thoracic aortic dissection. Extensive coronary artery calcification i s present. There is mild wall thickening of the distal esophagus with a small possible small hiatal h ernia. There is a mildly enlarged subcarinal lymph node that measures 1.3 cm in short axis diameter. No pneumothorax or pleural effusion is noted. There is no consolidation to suggest pneumonia. The alexey tral airways are patent. No suspicious lesions or acute fractures are identified within the visualize d skeletal structures. Pancreatic glandular atrophy is noted. IMPRESSION: 1. No pulmonary emboli identified. 2. No consolidation to suggest pneumonia. 3. Mild distal esophageal wall thickening which is nonspecific but favors esophagitis. 4. Mildly enlarged subcarinal lymph node is also nonspecific. A follow-up chest CT in 6 months is rec ommended. 5. Moderate cardiomegaly. Dilatation of the central pulmonary arteries which raises the possibility o f pulmonary arterial hypertension. ACT 112: Negative or not required by law. Electronically signed by: Sulaiman Diaz M.D. 08/07/2020 7:46 PM
[2020-08-07] MEDS ORDERED: MAGNESIUM HYDROXIDE SUSP 30 ML UDC PO PRN (21:25)
[2020-08-07] MEDS ORDERED: ALUMINUM/MAGNESIUM SUSP 30 ML UDC PO PRN (21:25)
[2020-08-07] MEDS ORDERED: POLYETHYLENE (MIRALAX) 17 GM PACK PO PRN (21:25)
[2020-08-07] MEDS ORDERED: KETOROLAC 0.5% OP SOLN 3 ML BTL OPR SCH (22:00)
[2020-08-07] MEDS ORDERED: FLUTICASONE/VILANTEROL 100/25MCG 14 PUFFS/INHALER INH PRN (22:28)
[2020-08-07] MEDS ORDERED: VANCOMYCIN CONSULT ACTIVE PRN (22:29)
[2020-08-07] MEDS ORDERED: VANCOMYCIN HCL 2,000 MG in SODIUM CHLORIDE 0.9% 500 ML IV STA (22:30)
[2020-08-07] MEDS: FAMOTIDINE 10 MG TABLET PO SCH (23:04)
[2020-08-07] MEDS: TERAZOSIN HCL 1 MG CAP PO SCH (23:04)
[2020-08-07] MEDS: TRIAMCINOLONE ACET NASAL SPRAY 10.8ML BTL NAE SCH (23:07)
--- NOTE | 2020-08-07 23:07 | Electrocardiogram Report ---
Test Reason : Blood Pressure : / mmHG Vent. Rate : 095 BPM Atrial Rate : 258 BPM P-R Int : 000 ms QRS Dur : 118 ms QT Int : 398 ms P-R-T Axes : -36 -28 141 degrees QTc Int : 500 ms Atrial flutter with variable A-V block with premature ventricular or aberrantly conducted complexes Incomplete right bundle branch block Possible Septal infarct Prolonged QT Abnormal ECG When compared with ECG of 28-JUL-2008 13:45, Atrial flutter has replaced Sinus rhythm Premature ventricular complexes are now Present T wave inversion now evident in Lateral leads Confirmed by Joe Holden [id number]) on 08/07/2020 11:07:02 PM Referred By: REFERRED SELF Confirmed By:Joe Holden
[2020-08-07] MEDS: KETOROLAC 0.5% OP SOLN 5 ML BTL OPR SCH (23:08)
[2020-08-07] MEDS: PATIENT'S HEIGHT AND/OR WEIGHT NEEDED SCH ×3 (23:10→23:48)
[2020-08-07] MEDS: cefTRIAXone SODIUM 2,000 MG in DEXTROSE 5% 50 ML IV SCH (23:18)
--- NOTE | 2020-08-08 00:34 | Pharmacy Report ---
Pharmacy Abx Dose Short Note - Date of Service August 08, 2020 - Assessment & Plan Assessment 75 year old M receiving Vancomycin and Ceftriaxone for treatment of left knee prosthetic joint infection vs cellulitis * PMHx insignificant * Afebrile. Leukocytosis of 11k. Procal 0.21. ESR/CRP both elevated. * L knee XR showed "mild diffuse soft tissue edema" * Started on Vancomycin and Ceftriaxone Plan Vancomycin * Loading dose: 2000 mg (16 mg/kg - note weight changed after loading dose entered) * Maintenance dose: 1250 mg (10 mg/kg) IV every 16 hours * Goal trough: 15-20 mcg/mL * Trough ordered for 08/10/20 Pharmacy will continue to follow and will adjust dose/frequency as necessary. Thank you.
[2020-08-08] MEDS: APIXABAN 5 MG TABLET PO SCH ×2 (01:12→21:45)
[2020-08-08] MEDS ORDERED: MoRPHine SULFATE 2 MG/ML CARP IV PRN (04:18)
[2020-08-08] MEDS: ACETAMINOPHEN 325 MG TAB PO PRN (04:24)
[2020-08-08] MEDS: CALCIUM POLYCARBOPHIL 625MG TAB PO SCH (07:59)
[2020-08-08] MEDS: dilTIAZem HCL 300 MG CAPCR PO SCH (07:59)
[2020-08-08] MEDS: CITALOPRAM 20 MG TAB PO SCH (08:00)
[2020-08-08] MEDS: FERROUS SULFATE 325 MG TAB PO SCH (08:00)
[2020-08-08] MEDS: ROSUVASTATIN CALCIUM 5 MG TAB PO SCH (08:00)
[2020-08-08] MEDS: MULTIVITAMIN TAB PO SCH (08:00)
[2020-08-08] MEDS: KETOROLAC 0.5% OP SOLN 5 ML BTL OPR SCH ×4 (08:01→21:45)
[2020-08-08] MEDS: FAMOTIDINE 10 MG TABLET PO SCH ×2 (08:01→21:45)
[2020-08-08] MEDS: ASPIRIN 81 MG ECTAB PO SCH (08:05)
[2020-08-08 08:27] LABS: Basophils # (auto) 0.02 K/uL (0-0.2); Basophils % (auto) 0.2 %; Eosinophils # (auto) 0.13 K/uL (0-0.5); Eosinophils % (auto) 1.5 %; Hemoglobin 10.1 g/dL (14.0-18.0); Immature Granulocytes # (auto) 0.04 K/uL (0.00-0.02); Immature Granulocytes % (auto) 0.5 %; Lymphocytes # (auto) 1.01 K/uL (1.2-3.4); Lymphocytes % (auto) 11.4 %; Mean Corpuscular Hemoglobin 32.9 pg (25-34); Mean Corpuscular Hgb Conc 33.7 g/dL (32-36); Mean Corpuscular Volume 97.7 fL (80-100); Mean Platelet Volume 10.4 fL (7.4-10.4); Monocytes % (auto) 14.7 %; Neutrophils # (auto) 6.33 K/uL (1.4-6.5); Neutrophils % (auto) 71.7 %; Platelet Count 172 K/uL (130-400); RDW Coefficient of Variation 13.2 % (11.5-14.5); Red Blood Count 3.07 M/uL (4.7-6.1); White Blood Count 8.83 K/uL (4.8-10.8)
[2020-08-08 08:51] LABS: Albumin Level 2.8 gm/dl (3.4-5.0); BUN Creatinine Ratio 18.3 (10-20); Calcium 9.1 mg/dl (8.5-10.1); Creatinine Clr Calc Pharmacy 74.7 ml/min; Est GFR (African American) 78.6 ml/min; Est GFR (Non-African American) 67.8 ml/min; Potassium 3.9 mmol/L (3.5-5.1)
[2020-08-08 08:54] LABS: Albumin Globulin Ratio 0.6 (0.9-2); Bilirubin,Total 1.5 mg/dl (0.2-1); Globulin 4.3 gm/dl (2.5-4.0); Phosphorus 2.4 mg/dl (2.5-4.9); Total Protein 7.1 gm/dl (6.4-8.2)
--- NOTE | 2020-08-08 09:04 | Cardiology Consultation ---
Date of Consultation August 08, 2020 Assessment & Plan (1) Total knee replacement status: (2) Postoperative pain of left knee: (3) Generalized weakness: (4) PAF (paroxysmal atrial fibrillation): (5) Hx of CABG: (6) S/P AVR: From a cardiac standpoint the patient is currently clinically stable. I would continue with his current medications that are controlling his heart rate as well as anticoagulation. No additional cardiac testing or treatment is indicated at this time. History of Present Illness Attending Physician: Felipe Graves MD History of Present Illness This is a 75-year-old male patient with the cardiac history as outlined below. Recently had a total knee replacement and was discharged home and then returned with increased swelling and discomfort of the leg with the prosthetic. He is being treated for postoperative pain as well as a possible cellulitis. He developed atrial fibrillation/flutter on the environmental monitoring specialist. His heart rates are controlled and he is anticoagulated. He has no current cardiac complaints. Cardiac problem List: 1.History of CABG x2 with OWLF to LAD, SVG to diagonal and bioprosthetic aortic valve replacement for treatment of severe aortic valve stenosis, utilizing a [address] [facility] [place] Epic bioprosthesis August, 2.Moderate aortic root enlargement, 4.6 centimeters, [address] 3.Hypertension 4.Dyslipidemia 5.History pulmonary nodules 6.Post knee replacement DVT PE 7.For which he is anticoagulated with Coumadin, paroxysmal atrial fibrillation, diagnosed April, Allergies Allergy/AdvReac Type Severity Reaction Status Date / Time latex Allergy Mild Rash Verified 08/07/20 16:37 Home Medications Medication Instructions Recorded Confirmed Type amoxicillin 500 mg PO UD PRN 05/07/18 08/07/20 History aspirin 81 mg PO QAM 05/07/18 08/07/20 History calcium polycarbophil [FiberCon] 1 dose PO DAILY 05/07/18 08/07/20 History citalopram 20 mg PO QAM 05/07/18 08/07/20 History clobetasol [Temovate] 1 applic TOPICAL DAILY PRN 05/07/18 08/07/20 History diltiazem HCl 300 mg PO QAM 05/07/18 08/07/20 History erythromycin 1 applic OPHTHALMIC (EYE) DAILY PRN 05/07/18 08/07/20 History imiquimod [Aldara] 1 dose TOPICAL UD PRN 05/07/18 08/07/20 History lactic acid 1 applic TOPICAL UD PRN 05/07/18 08/07/20 History multivitamin 1 tab PO QAM 05/07/18 08/07/20 History triamcinolone acetonide [Nasacort] 1 spray INTRANASAL BID 05/07/18 08/07/20 History fluticasone propion-salmeterol 1 inh INHALATION BID PRN 12/01/18 08/07/20 History [Advair Diskus] apixaban [Eliquis] 5 mg PO BID 08/07/20 08/07/20 History ferrous sulfate 325 mg PO DAILY 08/07/20 08/07/20 History ketorolac 1 drp OPR QID 08/07/20 08/07/20 History rosuvastatin 5 mg PO DAILY 08/07/20 08/07/20 History terazosin 2 mg PO HS 08/07/20 08/07/20 History oxycodone 5 mg PO Q6H PRN 08/08/20 08/08/20 History Patient History Medical History CAD (coronary artery disease) Chronic back pain Colon polyps Cough FROM SINUS TROUBLE- INHALER FOR THIS Depression GERD (gastroesophageal reflux disease) Hearing deficit BL YUAN Hypertension NICOLE treated with BiPAP Osteoarthritis Sleep apnea CPAP Spinal stenosis Surgical History History of adenoidectomy History of aortic valve replacement 08/2017 - [facility] - FOLLOW W/ DR. CISNEROS History of appendectomy History of cardiac cath 08/2017 - [facility] - PRE OP CATH FOR VALVE REPLACEMENT - NO STENTS/ANGIOPLASTY - FOLLOWS W/ DR. CISNEROS History of colonoscopy History of tooth extraction Hx of CABG 08/2017 Hx of tonsillectomy Hx of vitrectomy RIGHT EYE Family History Father COPD (chronic obstructive pulmonary disease) Mother Hypertension Social History Smoking Status: Never smoker Years Smoked: 20; Smoking End Date: 1983; Second Hand Exposure: No; Do You Dip or Chew Tobacco: No; Hx Alcohol Use: No Hx Substance Use: No Preferred Language: Serbian Communication Ability: Effective Gas Station Service Attendant Required: No Beliefs That Will Affect Care: None marital status: Current Living Situation: Spouse Other Information That Helps Us Care for You: No Feels Safe at Home: Yes Safety Concerns: Feels Safe At This Time Assistive Devices: CPAP Review of Systems Review of Systems: All systems reviewed & are unremarkable except as noted in Subjective Physical Exam Physical Exam: General: no acute distress and stated age Head: normocephalic, no masses, lesions, tenderness or abnormalities Eyes: conjunctiva are pink and non-injected, sclera clear Neck: supple, no adenopathy, no bruits, normal jugular venous pulse, no hepatojugular reflux Chest: normal shape and normal respiratory effort Lungs: clear to auscultation and percussion Cardiac Exam: - irregular rate & rhythm, no murmurs gallops or rubs - normal S1, normal S2 Pulses: 2(+) throughout Abdomen: abdomen soft, non-tender, no abnormal masses and no hepatosplenomegaly Musculoskeletal: no gait disturbance, no joint inflammation, no deforming arthritis Extremities: no edema and no cyanosis Neuro: grossly normal exam Results & Data ([facility]) Vital Signs (Past 12 Hours) Vital Signs Temp Pulse Pulse Resp BP Pulse Ox 08/08/20 07:51 36.7 C 83 20 173/76 H 95 08/08/20 07:21 96 H 08/08/20 03:29 36.8 C 73 16 147/77 H 95 08/07/20 23:23 36.6 C 80 18 147/75 H 96 08/07/20 22:21 94 H 08/07/20 22:00 53 L 12 97 Laboratory Results Laboratory Results - last 24 hr 08/07/20 08/07/20 08/07/20 14:50 14:50 14:50 WBC 11.08 H RBC 3.07 L Hgb 10.3 L Hct 29.7 L MCV 96.7 MCH 33.6 MCHC 34.7 RDW Std Deviation 45.4 RDW Coeff of Ej 13.1 Plt Count 153 MPV 11.1 H Immature Gran % (Auto) 0.5 Neut % (Auto) 79.8 Lymph % (Auto) 4.8 Clarke % (Auto) 14.6 Eos % (Auto) 0.2 Baso % (Auto) 0.1 Neut # (Auto) 8.85 H Lymph # (Auto) 0.53 L Clarke # (Auto) 1.62 H Eos # (Auto) 0.02 Baso # (Auto) 0.01 Immature Gran # (Auto) 0.05 H ESR Sodium 134 L Potassium 4.3 Chloride 101 Carbon Dioxide 24 Anion Gap 9.0 BUN 24 H Creatinine 1.34 Est Cr Clr Drug Dosing Not Reportable Est GFR ( Amer) 59.2 Est GFR (Non-Af Amer) 51.1 BUN/Creatinine Ratio 18.2 Glucose 131 H Calcium 9.0 Phosphorus 2.4 L Magnesium 2.5 H Total Bilirubin 1.5 H Direct Bilirubin 0.4 H AST 23 ALT 15 Alkaline Phosphatase 77 Troponin I < 0.015 C-Reactive Protein Total Protein 7.5 Albumin 3.0 L Globulin 4.5 H Albumin/Globulin Ratio 0.7 L Lipase 47 L Procalcitonin Urine Color Urine Appearance Urine pH Ur Specific [place] Urine Protein Urine Glucose (UA) Urine Ketones Urine Blood Urine Nitrite Urine Bilirubin Urine Urobilinogen Ur Leukocyte Esterase Urine WBC (Auto) Urine RBC (Auto) U Hyaline Cast (Auto) U Epithel Cells (Auto) Urine Bacteria (Auto) COVID-19 Eval Order Covid19 at [facility] SARS-CoV-2 (PCR) 08/07/20 08/07/20 08/07/20 14:50 14:50 14:50 WBC RBC Hgb Hct MCV MCH MCHC RDW Std Deviation RDW Coeff of Ej Plt Count MPV Immature Gran % (Auto) Neut % (Auto) Lymph % (Auto) Clarke % (Auto) Eos % (Auto) Baso % (Auto) Neut # (Auto) Lymph # (Auto) Clarke # (Auto) Eos # (Auto) Baso # (Auto) Immature Gran # (Auto) ESR 74 H Sodium Potassium Chloride Carbon Dioxide Anion Gap BUN Creatinine Est Cr Clr Drug Dosing Est GFR ( Amer) Est GFR (Non-Af Amer) BUN/Creatinine Ratio Glucose Calcium Phosphorus Magnesium Total Bilirubin Direct Bilirubin AST ALT Alkaline Phosphatase Troponin I C-Reactive Protein Total Protein Albumin Globulin Albumin/Globulin Ratio Lipase Procalcitonin 0.21 Urine Color Urine Appearance Urine pH Ur Specific [place] Urine Protein Urine Glucose (UA) Urine Ketones Urine Blood Urine Nitrite Urine Bilirubin Urine Urobilinogen Ur Leukocyte Esterase Urine WBC (Auto) Urine RBC (Auto) U Hyaline Cast (Auto) U Epithel Cells (Auto) Urine Bacteria (Auto) COVID-19 Eval Order SARS-CoV-2 (PCR) NEGATIVE 08/07/20 08/07/20 08/08/20 14:50 15:15 08:10 WBC 8.83 RBC 3.07 L Hgb 10.1 L Hct 30.0 L MCV 97.7 MCH 32.9 MCHC 33.7 RDW Std Deviation 47.0 H RDW Coeff of Ej 13.2 Plt Count 172 MPV 10.4 Immature Gran % (Auto) 0.5 Neut % (Auto) 71.7 Lymph % (Auto) 11.4 Clarke % (Auto) 14.7 Eos % (Auto) 1.5 Baso % (Auto) 0.2 Neut # (Auto) 6.33 Lymph # (Auto) 1.01 L Clarke # (Auto) 1.30 H Eos # (Auto) 0.13 Baso # (Auto) 0.02 Immature Gran # (Auto) 0.04 H ESR Sodium Potassium Chloride Carbon Dioxide Anion Gap BUN Creatinine Est Cr Clr Drug Dosing Est GFR ( Amer) Est GFR (Non-Af Amer) BUN/Creatinine Ratio Glucose Calcium Phosphorus Magnesium Total Bilirubin Direct Bilirubin AST ALT Alkaline Phosphatase Troponin I C-Reactive Protein 21.60 H Total Protein Albumin Globulin Albumin/Globulin Ratio Lipase Procalcitonin Urine Color Yellow Urine Appearance Clear Urine pH 5.5 Ur Specific [place] 1.015 Urine Protein 1+ H Urine Glucose (UA) Negative Urine Ketones Negative Urine Blood 1+ H Urine Nitrite Negative Urine Bilirubin Negative Urine Urobilinogen Negative Ur Leukocyte Esterase Negative Urine WBC (Auto) 1-5 Urine RBC (Auto) 5-10 H U Hyaline Cast (Auto) 1-5 U Epithel Cells (Auto) 0-5 Urine Bacteria (Auto) Negative COVID-19 Eval Order SARS-CoV-2 (PCR) 08/08/20 08:10 WBC RBC Hgb Hct MCV MCH MCHC RDW Std Deviation RDW Coeff of Ej Plt Count MPV Immature Gran % (Auto) Neut % (Auto) Lymph % (Auto) Clarke % (Auto) Eos % (Auto) Baso % (Auto) Neut # (Auto) Lymph # (Auto) Clarke # (Auto) Eos # (Auto) Baso # (Auto) Immature Gran # (Auto) ESR Sodium 136 Potassium 3.9 Chloride 104 Carbon Dioxide 24 Anion Gap 8.0 BUN 19 H Creatinine 1.06 Est Cr Clr Drug Dosing 74.7 Est GFR ( Amer) 78.6 Est GFR (Non-Af Amer) 67.8 BUN/Creatinine Ratio 18.3 Glucose 113 H Calcium 9.1 Phosphorus 2.4 L Magnesium Total Bilirubin 1.5 H Direct Bilirubin AST 42 H ALT 16 Alkaline Phosphatase 70 Troponin I C-Reactive Protein Total Protein 7.1 Albumin 2.8 L Globulin 4.3 H Albumin/Globulin Ratio 0.6 L Lipase Procalcitonin Urine Color Urine Appearance Urine pH Ur Specific [place] Urine Protein Urine Glucose (UA) Urine Ketones Urine Blood Urine Nitrite Urine Bilirubin Urine Urobilinogen Ur Leukocyte Esterase Urine WBC (Auto) Urine RBC (Auto) U Hyaline Cast (Auto) U Epithel Cells (Auto) Urine Bacteria (Auto) COVID-19 Eval Order SARS-CoV-2 (PCR) Medications Administered Current Inpatient Medications Acetaminophen (Acetaminophen 325 Mg Tab) 650 mg PO Q4H PRN PRN Reason: pain/fever Stop: 09/06/20 21:24 Last Admin: 08/08/20 04:24 Dose: 650 mg Documented by: Al Hydrox/Mg Hydrox/Simethicone (Aluminum/Magnesium Susp 30 Ml Udc) 30 ml PO Q6H PRN PRN Reason: Dyspepsia Stop: 09/06/20 21:24 Apixaban (Apixaban 5 Mg Tablet) 5 mg PO BID [facility] Stop: 09/06/20 21:59 Last Admin: 08/08/20 01:12 Dose: Not Given Documented by: Aspirin (Aspirin 81 Mg Ectab) 81 mg PO [facility] Stop: 09/07/20 08:59 Last Admin: 08/08/20 08:05 Dose: Not Given Documented by: Calcium Polycarbophil (Calcium Polycarbophil 625mg Tab) 625 mg PO DAILY [facility] Stop: 09/07/20 08:59 Last Admin: 08/08/20 07:59 Dose: 625 mg Documented by: Citalopram Hydrobromide (Citalopram 20 Mg Tab) [facility] Stop: 09/07/20 08:59 Last Admin: 08/08/20 08:00 Dose: 20 mg Documented by: Diltiazem HCl (Diltiazem Hcl 300 Mg Capcr) 300 mg PO [facility] Stop: 09/07/20 08:59 Last Admin: 08/08/20 07:59 Dose: 300 mg Documented by: Famotidine (Famotidine 10 Mg Tablet) 10 mg PO BID [facility] Stop: 09/06/20 21:59 Last Admin: 08/08/20 08:01 Dose: 10 mg Documented by: Ferrous Sulfate (Ferrous Sulfate 325 Mg Tab) 325 mg PO DAILY [facility] Stop: 09/07/20 08:59 Last Admin: 08/08/20 08:00 Dose: 325 mg Documented by: Fluticasone/Vilanterol (Fluticasone/Vilanterol 100/25mcg 14 Puffs/Inhaler) 1 puffs INH BID PRN; Protocol PRN Reason: Shortness Of Breath Stop: 09/06/20 22:27 Ceftriaxone Sodium 2,000 mg/ (Dextrose) 70 mls @ 100 mls/hr IV Q24H [facility]; Protocol Stop: 08/14/20 22:59 Last Infusion: 08/08/20 00:00 Dose: Infused Documented by: Vancomycin HCl 1,500 mg/ (Sodium Chloride) 530 mls @ 200 mls/hr IV Q12H [facility] Stop: 09/19/20 11:59 Last Admin: 08/08/20 12:03 Dose: 200 mls/hr Documented by: Ketorolac Tromethamine (Ketorolac 0.5% Op Soln 5 Ml Btl) 1 drops OPR QID [facility] Stop: 09/06/20 22:59 Last Admin: 08/08/20 14:27 Dose: Not Given Documented by: Magnesium Hydroxide (Magnesium Hydroxide Susp 30 Ml Udc) 30 ml PO Q6H PRN PRN Reason: Constipation Stop: 09/06/20 21:24 Miscellaneous Information (Vancomycin Consult Active) 1 ea N/A UD PRN PRN Reason: Consult Stop: 09/06/20 22:28 Morphine Sulfate (Morphine Sulfate 2 Mg/Ml Carp) 4 mg IV Q4H PRN PRN Reason: Pain Stop: 08/22/20 04:17 Last Admin: 08/08/20 06:13 Dose: 4 mg Documented by: Multivitamins (Multivitamin Tab) 1 tab PO QAM [facility] Stop: 09/07/20 08:59 Last Admin: 08/08/20 08:00 Dose: 1 tab Documented by: Oxycodone HCl (Oxycodone Hcl Ir 5 Mg Tab (Immediate Release)) 5 mg PO Q4H PRN PRN Reason: Pain Stop: 08/22/20 04:17 Last Admin: 08/08/20 12:05 Dose: 5 mg Documented by: Polyethylene Glycol (Polyethylene (Miralax) 17 Gm Pack) 17 gm PO DAILY PRN PRN Reason: Constipation Stop: 09/06/20 21:24 Rosuvastatin Calcium (Rosuvastatin Calcium 5 Mg Tab) 5 mg PO DAILY [facility] Stop: 09/07/20 08:59 Last Admin: 08/08/20 08:00 Dose: 5 mg Documented by: Terazosin HCl (Terazosin Hcl 1 Mg Cap) 2 mg PO HS [facility] Stop: 09/06/20 21:59 Last Admin: 08/07/20 23:04 Dose: 2 mg Documented by: Triamcinolone Acetonide (Triamcinolone Acet Nasal [place] 10.8ml Btl) 1 sprays JAROD BID [facility] Stop: 09/06/20 21:59 Last Admin: 08/08/20 12:03 Dose: 1 sprays Documented by:
[2020-08-08] MEDS: TRIAMCINOLONE ACET NASAL SPRAY 10.8ML BTL NAE SCH ×2 (12:03→21:45)
[2020-08-08] MEDS: VANCOMYCIN HCL 1,500 MG in SODIUM CHLORIDE 0.9% 500 ML IV SCH ×2 (12:03→23:54)
[2020-08-08] MEDS: oxyCODONE HCL IR 5 MG TAB (IMMEDIATE RELEASE) PO PRN ×2 (12:05→16:58)
--- NOTE | 2020-08-08 12:11 | Orthopedic Consultation ---
Date of Consultation August 08, 2020 Assessment & Plan (1) Total knee replacement status: Postoperative day 5 status post left total knee, Kehinde Montoya. Ultrasound negative for DVT. With the exception of above average swelling to his left lower extremity, appropriate postoperative total knee, needs aggressive elevation of the left lower extremity, ice to the surgical site, continue with DVT prophylaxis, weightbearing as tolerated, PT/OT, dressing changes q daily, follow-up with Dr. Caicedo upon discharge. Thank you for the consultation. History of Present Illness Reason for Consultation: Painful total knee Attending Physician: Felipe Graves MD History of Present Illness The patient is a 75-year-old male with past medical history noted below who underwent recent left total knee arthroplasty on 08/03/2020 by Kehinde Montoya. Reports he was discharged on 08/04/2020 he was had increasing pain and difficulty ambulating since returning home, he presented to [facility] secondary to increasing left knee pain and amatory dysfunction. Allergies Allergy/AdvReac Type Severity Reaction Status Date / Time latex Allergy Mild Rash Verified 08/07/20 16:37 Home Medications Medication Instructions Recorded Confirmed Type amoxicillin 500 mg PO UD PRN 05/07/18 08/07/20 History aspirin 81 mg PO QAM 05/07/18 08/07/20 History calcium polycarbophil [FiberCon] 1 dose PO DAILY 05/07/18 08/07/20 History citalopram 20 mg PO QAM 05/07/18 08/07/20 History clobetasol [Temovate] 1 applic TOPICAL DAILY PRN 05/07/18 08/07/20 History diltiazem HCl 300 mg PO QAM 05/07/18 08/07/20 History erythromycin 1 applic OPHTHALMIC (EYE) DAILY PRN 05/07/18 08/07/20 History imiquimod [Aldara] 1 dose TOPICAL UD PRN 05/07/18 08/07/20 History lactic acid 1 applic TOPICAL UD PRN 05/07/18 08/07/20 History multivitamin 1 tab PO QAM 05/07/18 08/07/20 History triamcinolone acetonide [Nasacort] 1 spray INTRANASAL BID 05/07/18 08/07/20 History fluticasone propion-salmeterol 1 inh INHALATION BID PRN 12/01/18 08/07/20 History [Advair Diskus] apixaban [Eliquis] 5 mg PO BID 08/07/20 08/07/20 History ferrous sulfate 325 mg PO DAILY 08/07/20 08/07/20 History ketorolac 1 drp OPR QID 08/07/20 08/07/20 History rosuvastatin 5 mg PO DAILY 08/07/20 08/07/20 History terazosin 2 mg PO HS 08/07/20 08/07/20 History oxycodone 5 mg PO Q6H PRN 08/08/20 08/08/20 History Patient History Medical History CAD (coronary artery disease) Chronic back pain Colon polyps Cough FROM SINUS TROUBLE- INHALER FOR THIS Depression GERD (gastroesophageal reflux disease) Hearing deficit BL YUAN Hypertension NICOLE treated with BiPAP Osteoarthritis Sleep apnea CPAP Spinal stenosis Surgical History History of adenoidectomy History of aortic valve replacement 08/2017 - [facility] - FOLLOW W/ DR. CISNEROS History of appendectomy History of cardiac cath 08/2017 - [facility] - PRE OP CATH FOR VALVE REPLACEMENT - NO STENTS/ANGIOPLASTY - FOLLOWS W/ DR. CISNEROS History of colonoscopy History of tooth extraction Hx of CABG 08/2017 Hx of tonsillectomy Hx of vitrectomy RIGHT EYE Family History Father COPD (chronic obstructive pulmonary disease) Mother Hypertension Social History Smoking Status: Never smoker Years Smoked: 20; Smoking End Date: 1983; Second Hand Exposure: No; Do You Dip or Chew Tobacco: No; Hx Alcohol Use: No Hx Substance Use: No Preferred Language: Ivorian Communication Ability: Effective Polymer Chemist Required: No Beliefs That Will Affect Care: None marital status: Current Living Situation: Spouse Other Information That Helps Us Care for You: No Feels Safe at Home: Yes Safety Concerns: Feels Safe At This Time Assistive Devices: Walker Review of Systems Review of Systems: All systems reviewed & are unremarkable except as noted in HPI & below Constitutional: as per Subjective / HPI Physical Exam Physical Exam: LLE NVSI +EHL/FHL/TA/GS SILT grossly, +2 DP pulse, compartments soft NT, incision is clean dry and intact with scant serous drainage middle one third, no purulence, no cellulitis, +3 pitting edema left lower extremity. Mild periincisional erythema. Constitutional: WD/WN, vitals as above Results & Data ([facility]) Vital Signs (Past 12 Hours) Vital Signs Temp Pulse Pulse Resp BP Pulse Ox 08/08/20 12:01 36.8 C 68 20 161/79 H 97 08/08/20 07:51 36.7 C 83 20 173/76 H 95 08/08/20 07:21 96 H 08/08/20 03:29 36.8 C 73 16 147/77 H 95 Diagnostic Findings XR knee LT 3V CLINICAL HISTORY: Left knee pain. COMPARISON: None. 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 There are anterior skin janis. There is mild soft tissue edema. No fractures are visualized. IMPRESSION: 1. Mild diffuse soft tissue edema 2. Postsurgical changes of a total left knee arthroplasty 2. No fractures or dislocations identified.
--- NOTE | 2020-08-08 14:31 | Hospitalist Progress Note ---
Date of Service August 08, 2020 Assessment & Plan (1) Cellulitis of left leg: (2) Infection of prosthetic knee joint: (3) Fall: (4) Status post total knee replacement, left: (5) Ambulatory dysfunction: This is a 75-year-old male who has significant past medical history of CAD status post CABG x2, bioprosthetic AVR replacement, moderate aortic root enlargement 4.6 cm, HTN, HLD, post knee replacement DVT PE, history of pulmonary nodules, anticoagulated on Eliquis, NICOLE on BiPAP, PAF, CKD stage III, BPH, morbid obesity, asthma who presents to ED secondary to left knee pain inability to ambulate x3 days. Currently pain is well controlled. LE duplex negative for any DVT. Appreciate orthopedics input. No plan for any further intervention. Work with PT/OT. Patient likely needs placement. Will continue vancomycin/ceftriaxone for now. Resume [employer] eliquis. Hyponatremia - resolved Hypophosphatemia - repleted Prolonged QTC monitor ecg avoid qtc prolonging agents Abnormal CT Chest Mild distal esophageal wall thickening which is nonspecific but favors esophagitis. Mildly enlarged subcarinal lymph node is also nonspecific. A follow-up chest CT in 6 months is recommended Pt with increased belching, CT showing mild esophagitis add [id number] (6) Atrial flutter: Patient with documented PAF per Dr. Berger's note on 05/22/2020 He had episode of A. fib April 2020. He underwent 7 days DO awake overnight monitor and was in atrial fibrillation with conversion to sinus rhythm on day 6 of 7. Echocardiogram 05/21 55%, grade 2 diastolic dysfunction, left atrium moderately e nlarged, right atrium mildly enlarged, AVR bioprosthetic, pulmonary arterial systolic pressure 30-35 At time of diagnosis patient was already anticoagulated on Eliquis secondary to postoperative DVT/PE He continues to remain rate and rhythm controlled on diltiazem Continue Eliquis Appreciate cardiology input. (7) Atelectasis: LLL CTA chest to negative for any acute findings. Curretly patient is on room air. Afebrile and WBC WNL. Denies any respiratory symptoms. (8) CAD (coronary artery disease): History of CABG x2 with WOLF to LAD, SVG to diagonal and bioprosthetic AVR secondary to severe aortic valve stenosis August 2017 Follows [facility] cardiology, Dr. Ab Continue ASA, rosuvastatin, diltiazem and Eliquis (9) NICOLE treated with BiPAP: bipap at HS (10) Morbid obesity: Patient will obese, weight 101 kg Diet life modifications Consult dietitian (11) DVT prophylaxis: continue eliquis Dispo: med tele PCP: Dirk FULL CODE Admission and Anticipated Discharge Date Admission Date: August 07, 2020 Subjective Doing okay this morning. Currently awake, alert and oriented x3. Reports pain is better. Rest of the review of system is negative. Review of Systems Review of Systems: All systems reviewed & are unremarkable except as noted in HPI & below Physical Exam Physical Exam: General: A&Ox3 HENT: NCAT, MMM, EOMI Eyes: PERRLA Neck: Supple, normal range of motion CVS: normal rate and rhythm Resp: b/l good breath sounds Abdomen: Soft, ND/NT Extremities: L knee swollen, erythema improved Neuro: face symmetric, no focal deficit Skin: warm and dry, no rashes/lesions/errythema MSK: no joint swelling/erythema Results & Data Results & Data ([facility]) Vital Signs (Past 12 Hours) Vital Signs Temp Pulse Pulse Resp BP Pulse Ox 08/08/20 12:01 36.8 C 68 20 161/79 H 97 08/08/20 07:51 36.7 C 83 20 173/76 H 95 08/08/20 07:21 96 H 08/08/20 03:29 36.8 C 73 16 147/77 H 95
[2020-08-08] MEDS ORDERED: POT PHOSPHATE MONOBASIC W/ SOD TAB PO ONE (15:02)
[2020-08-08] MEDS ORDERED: VANCOMYCIN HCL 1,250 MG in SODIUM CHLORIDE 0.9% 250 ML IV SCH (16:00)
[2020-08-08] MEDS: TERAZOSIN HCL 1 MG CAP PO SCH (21:45)
[2020-08-08] MEDS ORDERED: cefTRIAXone SODIUM 2,000 MG in DEXTROSE 5% 50 ML IV SCH (22:15)
[2020-08-08] MEDS: cefTRIAXone SODIUM 2,000 MG in DEXTROSE 5% 50 ML IV SCH (23:13)
[2020-08-09] MEDS: ACETAMINOPHEN 325 MG TAB PO PRN (03:48)
--- NOTE | 2020-08-09 06:00 | Electrocardiogram Report ---
Test Reason : Blood Pressure : / mmHG Vent. Rate : 085 BPM Atrial Rate : 258 BPM P-R Int : 000 ms QRS Dur : 118 ms QT Int : 412 ms P-R-T Axes : -67 -34 108 degrees QTc Int : 490 ms Atrial flutter with variable A-V block Left axis deviation Incomplete right bundle branch block Possible Septal infarct , age undetermined Abnormal ECG When compared with ECG of 07-AUG-2020 15:45, Premature ventricular complexes are no longer Present Confirmed by Joe Holden ([id number]) on 08/09/2020 6:00:41 AM Referred By: REFERRED SELF Confirmed By:Joe Holden
[2020-08-09] MEDS: oxyCODONE HCL IR 5 MG TAB (IMMEDIATE RELEASE) PO PRN ×4 (08:12→23:40)
[2020-08-09] MEDS: APIXABAN 5 MG TABLET PO SCH ×2 (08:13→20:02)
[2020-08-09] MEDS: FERROUS SULFATE 325 MG TAB PO SCH (08:14)
[2020-08-09] MEDS: FAMOTIDINE 10 MG TABLET PO SCH ×2 (08:14→20:02)
[2020-08-09] MEDS: CITALOPRAM 20 MG TAB PO SCH (08:14)
[2020-08-09] MEDS: ASPIRIN 81 MG ECTAB PO SCH (08:14)
[2020-08-09] MEDS: MULTIVITAMIN TAB PO SCH (08:14)
[2020-08-09] MEDS: CALCIUM POLYCARBOPHIL 625MG TAB PO SCH (08:14)
[2020-08-09] MEDS: KETOROLAC 0.5% OP SOLN 5 ML BTL OPR SCH ×4 (08:15→20:01)
[2020-08-09] MEDS: dilTIAZem HCL 300 MG CAPCR PO SCH (08:15)
[2020-08-09] MEDS: ROSUVASTATIN CALCIUM 5 MG TAB PO SCH (08:15)
[2020-08-09] MEDS: TRIAMCINOLONE ACET NASAL SPRAY 10.8ML BTL NAE SCH ×2 (08:16→20:02)
--- NOTE | 2020-08-09 11:29 | Hospitalist Progress Note ---
Date of Service August 09, 2020 Assessment & Plan (1) Cellulitis of left leg: (2) Infection of prosthetic knee joint: (3) Fall: (4) Status post total knee replacement, left: (5) Ambulatory dysfunction: 75-year-old male who has significant past medical history of CAD status post CABG x2, bioprosthetic AVR replacement, moderate aortic root enlargement 4.6 cm, HTN, HLD, post knee replacement DVT PE, history of pulmonary nodules, anticoagulated on Eliquis, NICOLE on BiPAP, PAF, CKD stage III, BPH, morbid obesity, asthma who presents to ED secondary to left knee pain inability to ambulate x3 days. Currently pain is well controlled. LE duplex negative for any DVT. Orthopedic evaluation and recommendations noted. No plan for any further intervention. PT evaluation noted. Plan discharge to rehab Currently on vancomycin/ceftriaxone. Culture still pending. Plan to de-escalate antibiotics appropriately discharge. Wound care for left leg blister Continue home eliquis. Hyponatremia - resolved Hypophosphatemia - repleted Prolonged QTC monitor ecg avoid qtc prolonging agents Abnormal CT Chest Mild distal esophageal wall thickening which is nonspecific Favors esophagitis. Mildly enlarged subcarinal lymph node is also nonspecific. A follow-up chest CT in 6 months is recommended On famotidine (6) Atrial flutter: Patient with documented PAF per Dr. Berger's note on 05/22/2020 He had episode of A. fib April 2020. He underwent 7 days DO residential monitor and was in atrial fibrillation with conversion to sinus rhythm on day 6 of 7. Echocardiogram 05/21 55%, grade 2 diastolic dysfunction, left atrium moderately enlarged, right atrium mildly enlarged, AVR bioprosthetic, pulmonary arterial systolic pressure 30-35 At time of diagnosis patient was already anticoagulated on Eliquis secondary to postoperative DVT/PE He continues to remain rate and rhythm controlled on diltiazem Continue Eliquis Cardiology recommendations noted (7) Atelectasis: LLL CTA chest to negative for any acute findings. Curretly patient is on room air. Afebrile and WBC WNL. Denies any respiratory symptoms. (8) CAD (coronary artery disease): History of CABG x2 with WOLF to LAD, SVG to diagonal and bioprosthetic AVR secondary to severe aortic valve stenosis August 2017 Follows [facility] cardiology, Dr. Ab Continue ASA, rosuvastatin, diltiazem and Eliquis (9) NICOLE treated with BiPAP: bipap at HS (10) Morbid obesity: Diet life modifications (11) DVT prophylaxis: continue eliquis Dispo: med tele PCP: Dirk FULL CODE Admission and Anticipated Discharge Date Admission Date: August 07, 2020 Subjective Patient seen and examined Reports left knee pain is controlled and improving. Reports left foot blister is quite uncomfortable Denies any other complaints Review of Systems Constitutional: no fever and no chills Eyes: no problem reported Ear, Nose, Mouth, Throat: no problem reported Respiratory: no cough, no dyspnea and no dyspnea on exertion Cardiovascular: no chest pain, no dyspnea and no orthopnea Gastrointestinal: no abdominal pain, no nausea and no vomiting Genitourinary: no dysuria and no difficulty urinating Musculoskeletal: Left knee pain. Left foot blister Neurologic: no generalized weakness and no dizziness Psychiatric: no depression and no anxiety Physical Exam Constitutional: + well hydrated and + obese; no acute distress Eyes: PERRL, conjunctivae normal, anicteric sclerae ENMT: external ear and nose normal, oropharynx normal Respiratory: normal respiratory effort, lungs clear to auscultation Cardiovascular: Rate/Rhythm: + irregularly irregular S1-S2 Gastrointestinal (Abdomen): normal bowel sounds, soft, nontender, no hepatosplenomegaly Musculoskeletal: Left knee janis in place. Mild serosanguineous staining. Large dorsal left foot blister Neurologic: PERRL, EOMI, accommodation nl, no face palsy, no dysarthria Psychiatric: A+Ox3, euthymic affect Results & Data Results & [facility] ([facility]) Vital Signs (Past 12 Hours) Vital Signs Temp Pulse Pulse Pulse Resp BP Pulse Ox 08/09/20 08:00 36.9 C 82 12 123/82 96 08/09/20 07:15 89 08/09/20 04:00 36.7 C 102 H 16 133/81 95
[2020-08-09] MEDS ORDERED: VANCOMYCIN TROUGH ONE (11:30)
--- NOTE | 2020-08-09 11:54 | Surgery Consultation ---
Date of Consultation August 09, 2020 Assessment & Plan (1) Total knee replacement status: This is a 75yM with a PMH of CABG, afib on eliquis, AVR, who is s/p left total knee replacement at [facility] on 08/03 who presents to the [facility] ED on 08/07 with left lower extremity pain and difficulty ambulating. Workup with a LLE doppler revealed no evidence of DVTs. [place] rec'd patient ice area and keep extremity elevated. We have been consulted due to a blister on his left foot. It would be okay to normally leave these go and let it spontaneously drain, but it has been requested to de-roof the area so patient can wear shamir's and socks so he can get working on ambulating. We will perform this at the bedside. Patient is aware that this may cause an open wound and some more pain associated with the area and he endorsed understanding. Wound to be dressed daily with bacitracin, adaptic, and kerlex wrap. Can consult wound care if indicated for their recommendations for appropriate dressings. Supervising Physician Co-Signing Physician Notes Patient seen and examined, history reviewed, agree with above. 75-year-old male with multiple medical problems and history of recent left knee replacement in outside facility, admitted with edema and inability to ambulate. Surgery was consulted for a bullae on his left foot secondary to edema. No evidence of infection. He is unable to wear shoes that would like this to be drained. Verbal consent was obtained. There is prepped with Betadine. The skin overlying the bullae was unroofed and debrided. Clear fluid drained. This was not sent for culture. Bacitracin ointment, Adaptic, and a sterile dressing were applied. Patient tolerated procedure without incident. The wound area was 3 x 4 cm in size. This represents an excisional debridement, versus 20cm. Surgery will sign off, patient may use bacitracin and nonstick dressing. If any further issues follow-up with wound care. History of Present Illness Attending Physician: Betsy Guillory MD History of Present Illness This is a 75yM with a PMH of CABG, afib on eliquis, AVR, who is s/p left total knee replacement at [facility] on 08/03 who presents to the [facility] ED on 08/07 with left lower extremity pain and difficulty ambulating. Patient states the day after his procedure he was discharged to home. On the way home from driving he got out of his car and fell and hit his leg and subsequently needed the police to get him home. Since returning home he has been sitting in his recliner and had not be very mobile limited to pain and swelling. He presented to the ER for this and hospitalists admitted the patient with an ortho consult. We were consulted due to a left foot blister during this hospitalization. Allergies Allergy/AdvReac Type Severity Reaction Status Date / Time latex Allergy Mild Rash Verified 08/07/20 16:37 Home Medications Medication Instructions Recorded Confirmed Type amoxicillin 500 mg PO UD PRN 05/07/18 08/07/20 History aspirin 81 mg PO QAM 05/07/18 08/07/20 History calcium polycarbophil [FiberCon] 1 dose PO DAILY 05/07/18 08/07/20 History citalopram 20 mg PO QAM 05/07/18 08/07/20 History clobetasol [Temovate] 1 applic TOPICAL DAILY PRN 05/07/18 08/07/20 History diltiazem HCl 300 mg PO QAM 05/07/18 08/07/20 History erythromycin 1 applic OPHTHALMIC (EYE) DAILY PRN 05/07/18 08/07/20 History imiquimod [Aldara] 1 dose TOPICAL UD PRN 05/07/18 08/07/20 History lactic acid 1 applic TOPICAL UD PRN 05/07/18 08/07/20 History multivitamin 1 tab PO QAM 05/07/18 08/07/20 History triamcinolone acetonide [Nasacort] 1 spray INTRANASAL BID 05/07/18 08/07/20 History fluticasone propion-salmeterol 1 inh INHALATION BID PRN 12/01/18 08/07/20 History [Advair Diskus] apixaban [Eliquis] 5 mg PO BID 08/07/20 08/07/20 History ferrous sulfate 325 mg PO DAILY 08/07/20 08/07/20 History ketorolac 1 drp OPR QID 08/07/20 08/07/20 History rosuvastatin 5 mg PO DAILY 08/07/20 08/07/20 History terazosin 2 mg PO HS 08/07/20 08/07/20 History oxycodone 5 mg PO Q6H PRN 08/08/20 08/08/20 History Patient History Medical History CAD (coronary artery disease) Chronic back pain Colon polyps Cough FROM SINUS TROUBLE- INHALER FOR THIS Depression GERD (gastroesophageal reflux disease) Hearing deficit [place] Hypertension NICOLE treated with BiPAP Osteoarthritis Sleep apnea CPAP Spinal stenosis Surgical History History of adenoidectomy History of aortic valve replacement 08/2017 - [facility] - FOLLOW W/ DR. CISNEROS History of appendectomy History of cardiac cath 08/2017 - [facility] - PRE OP CATH FOR VALVE REPLACEMENT - NO STENTS/ANGIOPLASTY - FOLLOWS W/ DR. CISNEROS History of colonoscopy History of tooth extraction Hx of CABG 08/2017 Hx of tonsillectomy Hx of vitrectomy RIGHT EYE Family History Father COPD (chronic obstructive pulmonary disease) Mother Hypertension Social History Smoking Status: Never smoker Years Smoked: 20; Smoking End Date: 1983; Second Hand Exposure: No; Do You Dip or Chew Tobacco: No; Hx Alcohol Use: No Hx Substance Use: No Preferred Language: Faroese Communication Ability: Effective Lens Cleaner Required: No Beliefs That Will Affect Care: None marital status: Current Living Situation: Spouse Other Information That Helps Us Care for You: No Feels Safe at Home: Yes Safety Concerns: Feels Safe At This Time Assistive Devices: Walker Review of Systems Constitutional: no fever and no chills Gastrointestinal: no nausea and no vomiting Musculoskeletal: + water blister to dorsal L forefoot Physical Exam Physical Exam: awake/alert Constitutional: no acute distress Respiratory: normal respiratory effort Musculoskeletal: + edema/swelling to LLE, knee wound c/d/i with janis (some serosang drainage), + water blister to dorsal L forefoot Results & Data ([facility]) Vital Signs (Past 12 Hours) Vital Signs Temp Pulse Pulse Pulse Resp BP Pulse Ox 08/09/20 08:00 36.9 C 82 12 123/82 96 08/09/20 07:15 89 08/09/20 04:00 36.7 C 102 H 16 133/81 95 PG Care Time/CCT Total # of Minutes Spent Total Time Spent with Patient: Total time spent is greater than 50% in coordination of care (as documented) at patient's floor/unit and/or counseling patient: Coding Level of Care Code 24284 Initial Inpt Care Lvl 1 Diagnoses Total knee replacement status Z96.659
[2020-08-09] MEDS: VANCOMYCIN HCL 1,500 MG in SODIUM CHLORIDE 0.9% 500 ML IV SCH (12:32)
[2020-08-09 12:43] LABS: Creatinine Clr Calc Pharmacy 71.4 ml/min; Est GFR (African American) 74.4 ml/min; Est GFR (Non-African American) 64.2 ml/min
--- NOTE | 2020-08-09 13:33 | Pharmacy Report ---
Pharmacy Abx Dose Short Note - Date of Service August 09, 2020 - Assessment & Plan Assessment 75 year old M receiving vancomycin and rocephin for possible left knee prosthetic joint infection vs cellulitis Day # 2 of therapy Plan Vancomycin * Trough level came back supratherapeutic at ~21 mcg/ml - drawn before steady state d/t elevated BMI >35 and risk for accumulation. Dose given at noon today. Had checked with RN and level was drawn before vancomycin dose hung * Plan to decrease dosing to 1250 mg iv q 12 hrs - plan to start new dosing when estimated level closer to ~15 mcg/ml * Will plan to recheck trough if plan is to continue with vancomycin ongoing. Awaiting cultures currently * Estimated kinetics: t 1/2~12 hrs, ke~0.057 Pharmacy will continue to follow and will adjust dose/frequency as necessary. Thank you.
--- NOTE | 2020-08-09 17:03 | Procedure Note ---
Procedure Note Date of Service August 09, 2020 Supervising Physician Co-Signing Physician Notes Verbal consent was obtained. There is prepped with Betadine. The skin overlying the bullae was unroofed and debrided. Clear fluid drained. This was not sent for culture. Bacitracin ointment, Adaptic, and a sterile dressing were applied. Patient tolerated procedure without incident. The wound area was 3 x 4 cm in size. This represents an excisional debridement, versus 20cm. Coding CPT Codes Skin and Soft Tissue - Skin and Soft Tissue: 22475 Debridement, subcutaneous tissue, first 20 sq cm ([id number]) [facility] [place] Procedure Codes (Charges) Skin and Soft Tissue Skin and Soft Tissue: 04009 Debridement, subcutaneous tissue, first 20 sq cm
[2020-08-09] MEDS: TERAZOSIN HCL 1 MG CAP PO SCH (20:02)
[2020-08-09] MEDS: cefTRIAXone SODIUM 2,000 MG in DEXTROSE 5% 50 ML IV SCH (23:25)
[2020-08-10] MEDS ORDERED: VANCOMYCIN HCL 1,250 MG in SODIUM CHLORIDE 0.9% 250 ML IV SCH (06:00)
[2020-08-10 07:20] LABS: Hematocrit (blood only) 28.4 % (42-52); Hemoglobin 9.2 g/dL (14.0-18.0); Mean Corpuscular Hemoglobin 32.7 pg (25-34); Mean Corpuscular Hgb Conc 32.4 g/dL (32-36); Mean Corpuscular Volume 101.1 fL (80-100); Mean Platelet Volume 10.2 fL (7.4-10.4); Platelet Count 231 K/uL (130-400); RDW Coefficient of Variation 13.4 % (11.5-14.5); RDW Standard Deviation 48.8 fL (36.4-46.3); Red Blood Count 2.81 M/uL (4.7-6.1)
[2020-08-10 07:55] LABS: BUN Creatinine Ratio 20.7 (10-20); Creatinine Clr Calc Pharmacy 79.6 ml/min; Est GFR (African American) 83.4 ml/min; Est GFR (Non-African American) 71.9 ml/min; Magnesium 2.2 mg/dl (1.8-2.4); Potassium 3.9 mmol/L (3.5-5.1)
[2020-08-10 07:58] LABS: Phosphorus 3.2 mg/dl (2.5-4.9)
[2020-08-10] MEDS: ROSUVASTATIN CALCIUM 5 MG TAB PO SCH (08:37)
[2020-08-10] MEDS: CITALOPRAM 20 MG TAB PO SCH (08:37)
[2020-08-10] MEDS: FAMOTIDINE 10 MG TABLET PO SCH ×2 (08:37→19:58)
[2020-08-10] MEDS: APIXABAN 5 MG TABLET PO SCH ×2 (08:37→19:58)
[2020-08-10] MEDS: CALCIUM POLYCARBOPHIL 625MG TAB PO SCH (08:38)
[2020-08-10] MEDS: MULTIVITAMIN TAB PO SCH (08:38)
[2020-08-10] MEDS: ASPIRIN 81 MG ECTAB PO SCH (08:38)
[2020-08-10] MEDS: dilTIAZem HCL 300 MG CAPCR PO SCH (08:38)
[2020-08-10] MEDS: FERROUS SULFATE 325 MG TAB PO SCH (08:39)
[2020-08-10] MEDS: KETOROLAC 0.5% OP SOLN 5 ML BTL OPR SCH ×4 (08:40→19:58)
[2020-08-10] MEDS: TRIAMCINOLONE ACET NASAL SPRAY 10.8ML BTL NAE SCH ×2 (08:40→19:57)
[2020-08-10] MEDS: BACITRACIN OINT 15 GM TUBE EXT PRN (08:57)
[2020-08-10] MEDS: ACETAMINOPHEN 325 MG TAB PO PRN ×2 (08:59→14:18)
[2020-08-10] MEDS ORDERED: VANCOMYCIN TROUGH ONE ×2 (11:30→15:30)
--- NOTE | 2020-08-10 11:53 | Hospitalist Progress Note ---
Date of Service August 10, 2020 Assessment & Plan (1) Cellulitis of left leg: (2) Fall: (3) Status post total knee replacement, left: (4) Ambulatory dysfunction: 75-year-old male who has significant past medical history of CAD status post CABG x2, bioprosthetic AVR replacement, moderate aortic root enlargement 4.6 cm, HTN, HLD, post knee replacement DVT PE, history of pulmonary nodules, anticoagulated on Eliquis, NICOLE on BiPAP, PAF, CKD stage III, BPH, morbid obesity, asthma who presents to ED secondary to left knee pain inability to ambulate x3 days. Currently pain is well controlled. LE duplex negative for any DVT. Orthopedic evaluation and recommendations noted. No plan for any further intervention. PT evaluation noted. Plan discharge to rehab Low suspicion for left knee prosthesis infection. Possible cellulitis vs healing from surgery Vancomycin/ceftriaxone discontinued. Do keflex for another 3 days Continue home eliquis. Hyponatremia - resolved Hypophosphatemia - repleted Prolonged QTC monitor ecg avoid qtc prolonging agents Abnormal CT Chest Mild distal esophageal wall thickening which is nonspecific Favors esophagitis. Mildly enlarged subcarinal lymph node is also nonspecific. A follow-up chest CT in 6 months is recommended On famotidine (5) Atrial flutter: Patient with documented PAF per Dr. Berger's note on 05/22/2020 He had episode of A. fib April 2020. He underwent 7 days DO clinical research monitor and was in atrial fibrillation with conversion to sinus rhythm on day 6 of 7. Echocardiogram 05/21 55%, grade 2 diastolic dysfunction, left atrium moderately enlarged, right atrium mildly enlarged, AVR bioprosthetic, pulmonary arterial systolic pressure 30-35 At time of diagnosis patient was already anticoagulated on Eliquis secondary to postoperative DVT/PE He continues to remain rate and rhythm controlled on diltiazem Continue Eliquis Cardiology recommendations noted (6) Atelectasis: LLL CTA chest to negative for any acute findings. Curretly patient is on room air. Afebrile and WBC WNL. Denies any respiratory symptoms. (7) CAD (coronary artery disease): History of CABG x2 with WOLF to LAD, SVG to diagonal and bioprosthetic AVR secondary to severe aortic valve stenosis August 2017 Follows [facility] cardiology, Dr. Berger Continue ASA, rosuvastatin, diltiazem and Eliquis (8) NICOLE treated with BiPAP: bipap at HS (9) Morbid obesity: Diet life modifications (10) DVT prophylaxis: continue elisilvana Dispo: med tele PCP: Dirk FULL CODE Admission and Anticipated Discharge Date Admission Date: August 07, 2020 Subjective Patient seen and examined. Reports left knee pain is controlled Review of Systems Review of Systems: All systems reviewed & are unremarkable except as noted in Subjective Physical Exam Constitutional: + well hydrated and + obese; no acute distress Eyes: PERRL, conjunctivae normal, anicteric sclerae ENMT: external ear and nose normal, oropharynx normal Respiratory: normal respiratory effort, lungs clear to auscultation Cardiovascular: Rate/Rhythm: + irregularly irregular Gastrointestinal (Abdomen): normal bowel sounds, soft, nontender, no hepatosplenomegaly Musculoskeletal: Clean dressing over left knee Left leg edema Neurologic: PERRL, EOMI, accommodation nl, no face palsy, no dysarthria Psychiatric: A+Ox3, euthymic affect Results & Data Results & Data ([facility]) Vital Signs (Past 12 Hours) Vital Signs Temp Pulse Pulse Resp BP Pulse Ox 08/10/20 11:34 36.7 C 97 H 18 145/82 H 91 08/10/20 08:00 89 08/10/20 07:04 36.4 C L 90 18 145/77 H 92 08/10/20 03:43 36.2 C L 81 20 131/63 93 08/10/20 00:00 117 H Laboratory Results Abnormal lab results 08/10/20 08/10/20 Range/Units 06:24 06:24 RBC 2.81 L (4.7-6.1) M/uL Hgb 9.2 L (14.0-18.0) g/dL Hct 28.4 L (42-52) % MCV 101.1 H (80-100) fL RDW Std Deviation 48.8 H (36.4-46.3) fL Sodium 135 L (136-145) mmol/L BUN 21 H (7-18) mg/dl BUN/Creatinine Ratio 20.7 H (10-20)
[2020-08-10] MEDS: cephALEXin 500 MG CAP PO SCH ×3 (14:17→19:58)
[2020-08-10] MEDS: TERAZOSIN HCL 1 MG CAP PO SCH (19:59)
[2020-08-11] MEDS ORDERED: METOPROLOL TARTRATE 1 MG/ML VIAL IV STA (02:14)
[2020-08-11] MEDS ORDERED: VANCOMYCIN TROUGH ONE (05:30)
--- NOTE | 2020-08-11 05:51 | Electrocardiogram Report ---
Test Reason : Blood Pressure : / mmHG Vent. Rate : 081 BPM Atrial Rate : 267 BPM P-R Int : 000 ms QRS Dur : 116 ms QT Int : 440 ms P-R-T Axes : -68 -25 100 degrees QTc Int : 511 ms Atrial flutter with variable A-V block with premature ventricular or aberrantly conducted complexes Nonspecific ST and T wave abnormality Prolonged QT Abnormal ECG When compared with ECG of 08-AUG-2020 06:42, Incomplete right bundle branch block is no longer Present Criteria for Septal infarct are no longer Present Confirmed by Joe Holden ([id number]) on 08/11/2020 5:50:43 AM Referred By: REFERRED SELF Confirmed By:Joe Holden
[2020-08-11] MEDS: PATIENT'S HEIGHT AND/OR WEIGHT NEEDED SCH (07:26)
[2020-08-11] MEDS: APIXABAN 5 MG TABLET PO SCH ×2 (07:42→19:54)
[2020-08-11] MEDS: FAMOTIDINE 10 MG TABLET PO SCH ×2 (07:42→19:55)
[2020-08-11] MEDS: cephALEXin 500 MG CAP PO SCH ×4 (07:42→19:53)
[2020-08-11] MEDS: ASPIRIN 81 MG ECTAB PO SCH (07:43)
[2020-08-11] MEDS: dilTIAZem HCL 300 MG CAPCR PO SCH (07:43)
[2020-08-11] MEDS: CITALOPRAM 20 MG TAB PO SCH (07:43)
[2020-08-11] MEDS: ROSUVASTATIN CALCIUM 5 MG TAB PO SCH (07:43)
[2020-08-11] MEDS: CALCIUM POLYCARBOPHIL 625MG TAB PO SCH (07:43)
[2020-08-11] MEDS: FERROUS SULFATE 325 MG TAB PO SCH (07:43)
[2020-08-11] MEDS: MULTIVITAMIN TAB PO SCH (07:43)
[2020-08-11] MEDS: KETOROLAC 0.5% OP SOLN 5 ML BTL OPR SCH ×4 (07:44→19:56)
[2020-08-11] MEDS: TRIAMCINOLONE ACET NASAL SPRAY 10.8ML BTL NAE SCH ×2 (07:44→19:57)
[2020-08-11 07:45] LABS: Est GFR (African American) 83.4 ml/min; Est GFR (Non-African American) 71.9 ml/min
--- NOTE | 2020-08-11 11:02 | Hospitalist Progress Note ---
Date of Service August 11, 2020 Assessment & Plan (1) Cellulitis of left leg: (2) Fall: (3) Status post total knee replacement, left: (4) Ambulatory dysfunction: 75-year-old male who has significant past medical history of CAD status post CABG x2, bioprosthetic AVR replacement, moderate aortic root enlargement 4.6 cm, HTN, HLD, post knee replacement DVT PE, history of pulmonary nodules, anticoagulated on Eliquis, NICOLE on BiPAP, PAF, CKD stage III, BPH, morbid obesity, asthma who presents to ED secondary to left knee pain inability to ambulate x3 days. Currently pain is well controlled. LE duplex negative for any DVT. Orthopedic evaluation and recommendations noted. No plan for any further intervention. PT evaluation noted. Low suspicion for left knee prosthesis infection. Possible cellulitis vs healing from surgery Vancomycin/ceftriaxone discontinued. Currently on keflex to complete treatment Continue home eliquis. Hyponatremia - resolved Hypophosphatemia - repleted Prolonged QTC Avoid qtc prolonging agents Abnormal CT Chest Mild distal esophageal wall thickening which is nonspecific Favors esophagitis. Mildly enlarged subcarinal lymph node is also nonspecific. A follow-up chest CT in 6 months is recommended On famotidine (5) Atrial flutter: Patient with documented PAF per Dr. Berger's note on 05/22/2020 He had episode of A. fib April 2020. He underwent 7 days DO cardiac exercise specialist and was in atrial fibrillation with conversion to sinus rhythm on day 6 of 7. Echocardiogram 05/21 55%, grade 2 diastolic dysfunction, left atrium moderately enlarged, right atrium mildly enlarged, AVR bioprosthetic, pulmonary arterial systolic pressure 30-35 At time of diagnosis patient was already anticoagulated on Eliquis secondary to postoperative DVT/PE Now in Atrial flutter with rapid ventricular rate. Discussed with optometrist assistant. Started on amiodarone loading. Diltiazem on hold for now Continue Eliquis (6) Atelectasis: LLL CTA chest to negative for any acute findings. Curretly patient is on room air. Afebrile and WBC WNL. Denies any respiratory symptoms. (7) CAD (coronary artery disease): History of CABG x2 with WOLF to LAD, SVG to diagonal and bioprosthetic AVR secondary to severe aortic valve stenosis August 2017 Follows [facility] cardiology, Dr. Ab Continue ASA, rosuvastatin, diltiazem and Eliquis (8) NICOLE treated with BiPAP: bipap at HS (9) Morbid obesity: Diet life modifications (10) DVT prophylaxis: continue eliquis PCP: Dirk FULL CODE Was planned for possible discharge today. However, will hold off discharge for now to manage AF w/ RVR Admission and Anticipated Discharge Date Admission Date: August 07, 2020 Subjective Patient seen and examined Has been in a flutter with rapid ventricular rate 110s to 130s overnight] Reports left knee pain is much improved Reports occasional palpitation. Denied any chest pain, shortness of breath, dizziness. Review of Systems Review of Systems: All systems reviewed & are unremarkable except as noted in Subjective Physical Exam Constitutional: + well hydrated and + obese; no acute distress Eyes: PERRL, conjunctivae normal, anicteric sclerae ENMT: external ear and nose normal, oropharynx normal Respiratory: normal respiratory effort, lungs clear to auscultation Cardiovascular: Rate/Rhythm: + tachycardic and + irregularly irregular S1- S2 Gastrointestinal (Abdomen): normal bowel sounds, soft, nontender, no hepatosplenomegaly Musculoskeletal: Clean dressing over left knee and left foot Neurologic: PERRL, EOMI, accommodation nl, no face palsy, no dysarthria Psychiatric: A+Ox3, euthymic affect Results & Data Results & Data ([facility]) Vital Signs (Past 12 Hours) Vital Signs Temp Pulse Pulse Resp BP Pulse Ox 08/11/20 07:00 36.5 C 116 H 18 156/83 H 92 08/11/20 04:00 37.2 C 107 H 20 136/75 94 08/11/20 03:44 19 08/11/20 02:27 132 H 08/10/20 23:58 37.1 C 118 H 20 162/62 H 95
[2020-08-11] MEDS ORDERED: METOPROLOL TARTRATE 1 MG/ML VIAL IV PRN (12:19)
--- NOTE | 2020-08-11 12:24 | Cardiology Progress Note ---
Date of Service August 11, 2020 Assessment & Plan (1) Total knee replacement status: (2) Postoperative pain of left knee: (3) Generalized weakness: (4) PAF (paroxysmal atrial fibrillation): (5) Hx of CABG: (6) S/P AVR: The patient has had high heart rates with persistent atrial fibrillation. At this point while he is on the telemetry I am going to add amiodarone starting at a loading dose of 200 mg 3 times daily. I will put his diltiazem on hold. He has a as needed IV metoprolol order. He has been consistently anticoagulated. Admission and Anticipated Discharge Date Admission Date: August 07, 2020 Subjective The patient has no complaints today. He has been having high heart rates with persistent atrial fibrillation. Review of Systems Review of Systems: All systems reviewed & are unremarkable except as noted in Subjective Physical Exam Physical Exam: General: no acute distress and stated age Head: normocephalic, no masses, lesions, tenderness or abnormalities Eyes: conjunctiva are pink and non-injected, sclera clear Neck: supple, no adenopathy, no bruits, normal jugular venous pulse, no hepatojugular reflux Chest: normal shape and normal respiratory effort Lungs: clear to auscultation and percussion Cardiac Exam: - irregular rate & rhythm, no murmurs gallops or rubs - normal S1, normal S2 Pulses: 2(+) throughout Abdomen: abdomen soft, non-tender, no abnormal masses and no hepatosplenomegaly Musculoskeletal: no gait disturbance, no joint inflammation, no deforming arthritis Extremities: no edema and no cyanosis Neuro: grossly normal exam Results & Data ([facility]) Vital Signs (Past 12 Hours) Vital Signs Temp Pulse Pulse Resp BP BP Pulse Ox 08/11/20 12:00 36.3 C L 117 H 18 157/66 H 94 08/11/20 07:00 36.5 C 116 H 18 156/83 H 92 08/11/20 04:00 37.2 C 107 H 20 136/75 94 08/11/20 03:44 19 08/11/20 02:27 132 H Laboratory Results Laboratory Results - last 24 hr 08/11/20 06:55 Creatinine 1.01 Est Cr Clr Drug Dosing 79.0 Est GFR ( Amer) 83.4 Est GFR (Non-Af Amer) 71.9 Medications Administered Current Inpatient Medications Acetaminophen (Acetaminophen 325 Mg Tab) 650 mg PO Q4H PRN PRN Reason: pain/fever Stop: 09/06/20 21:24 Last Admin: 08/10/20 14:18 Dose: 650 mg Documented by: Al Hydrox/Mg Hydrox/Simethicone (Aluminum/Magnesium Susp 30 Ml Udc) 30 ml PO Q6H PRN PRN Reason: Dyspepsia Stop: 09/06/20 21:24 Amiodarone HCl (Amiodarone 200 Mg Tab) 200 mg PO TIDM [facility] Stop: 09/10/20 16:59 Apixaban (Apixaban 5 Mg Tablet) 5 mg PO BID [facility] Stop: 09/06/20 21:59 Last Admin: 08/11/20 07:42 Dose: 5 mg Documented by: Aspirin (Aspirin 81 Mg Ectab) 81 mg PO QAM [facility] Stop: 09/07/20 08:59 Last Admin: 08/11/20 07:43 Dose: 81 mg Documented by: Bacitracin (Bacitracin Oint 15 Gm Tube) 1 appln EXT Q12 PRN PRN Reason: dressing changes Stop: 09/08/20 12:08 Last Admin: 08/10/20 08:57 Dose: 1 appln Documented by: Calcium Polycarbophil (Calcium Polycarbophil 625mg Tab) 625 mg PO DAILY [facility] Stop: 09/07/20 08:59 Last Admin: 08/11/20 07:43 Dose: 625 mg Documented by: Cephalexin HCl (Cephalexin 500 Mg Cap) 500 mg PO QID [facility] Stop: 08/13/20 12:59 Last Admin: 08/11/20 07:42 Dose: 500 mg Documented by: Citalopram Hydrobromide (Citalopram 20 Mg Tab) 20 mg PO QAM [facility] Stop: 09/07/20 08:59 Last Admin: 08/11/20 07:43 Dose: 20 mg Documented by: Diltiazem HCl (Diltiazem Hcl 300 Mg Capcr) 300 mg PO QAM [facility] Stop: 09/07/20 08:59 Last Admin: 08/11/20 07:43 Dose: 300 mg Documented by: Famotidine (Famotidine 10 Mg Tablet) 10 mg PO BID [facility] Stop: 09/06/20 21:59 Last Admin: 08/11/20 07:42 Dose: 10 mg Documented by: Ferrous Sulfate (Ferrous Sulfate 325 Mg Tab) 325 mg PO DAILY [facility] Stop: 09/07/20 08:59 Last Admin: 08/11/20 07:43 Dose: 325 mg Documented by: Fluticasone/Vilanterol (Fluticasone/Vilanterol 100/25mcg 14 Puffs/Inhaler) 1 puffs INH BID PRN; Protocol PRN Reason: Shortness Of Breath Stop: 09/06/20 22:27 Ketorolac Tromethamine (Ketorolac 0.5% Op Soln 5 Ml Btl) 1 drops OPR QID [facility] Stop: 09/06/20 22:59 Last Admin: 08/11/20 07:44 Dose: 1 drops Documented by: Magnesium Hydroxide (Magnesium Hydroxide Susp 30 Ml Udc) 30 ml PO Q6H PRN PRN Reason: Constipation Stop: 09/06/20 21:24 Metoprolol Tartrate (Metoprolol Tartrate 1 Mg/Ml Vial) 5 mg IV Q5M PRN PRN Reason: Tachycardia Stop: 09/10/20 12:18 Multivitamins (Multivitamin Tab) 1 tab PO QAM [facility] Stop: 09/07/20 08:59 Last Admin: 08/11/20 07:43 Dose: 1 tab Documented by: Oxycodone HCl (Oxycodone Hcl Ir 5 Mg Tab (Immediate Release)) 5 mg PO Q4H PRN PRN Reason: Pain Stop: 08/22/20 04:17 Last Admin: 08/09/20 23:40 Dose: 5 mg Documented by: Polyethylene Glycol (Polyethylene (Miralax) 17 Gm Pack) 17 gm PO DAILY PRN PRN Reason: Constipation Stop: 09/06/20 21:24 Rosuvastatin Calcium (Rosuvastatin Calcium 5 Mg Tab) 5 mg PO DAILY [facility] Stop: 09/07/20 08:59 Last Admin: 08/11/20 07:43 Dose: 5 mg Documented by: Terazosin HCl (Terazosin Hcl 1 Mg Cap) 2 mg PO HS [facility] Stop: 09/06/20 21:59 Last Admin: 08/10/20 19:59 Dose: 2 mg Documented by: Triamcinolone Acetonide (Triamcinolone Acet Nasal [place] 10.8ml Btl) 1 sprays JAROD BID [facility] Stop: 09/06/20 21:59 Last Admin: 08/11/20 07:44 Dose: 1 sprays Documented by:
[2020-08-11] MEDS: AMIODARONE 200 MG TAB PO SCH (16:32)
[2020-08-11] MEDS: METOPROLOL TARTRATE 1 MG/ML VIAL IV PRN ×2 (17:33→19:53)
[2020-08-11] MEDS: TERAZOSIN HCL 1 MG CAP PO SCH (19:55)
[2020-08-12] MEDS: METOPROLOL TARTRATE 1 MG/ML VIAL IV PRN ×2 (05:37→22:14)
[2020-08-12 07:18] LABS: Hematocrit (blood only) 29.1 % (42-52); Hemoglobin 9.8 g/dL (14.0-18.0); Mean Corpuscular Hemoglobin 33.3 pg (25-34); Mean Corpuscular Hgb Conc 33.7 g/dL (32-36); Mean Platelet Volume 9.3 fL (7.4-10.4); Platelet Count 271 K/uL (130-400); RDW Coefficient of Variation 13.6 % (11.5-14.5); RDW Standard Deviation 48.7 fL (36.4-46.3); Red Blood Count 2.94 M/uL (4.7-6.1); White Blood Count 10.09 K/uL (4.8-10.8)
[2020-08-12 07:39] LABS: BUN Creatinine Ratio 20.7 (10-20); Calcium 9.2 mg/dl (8.5-10.1); Creatinine Clr Calc Pharmacy 81.4 ml/min; Est GFR (African American) 86.5 ml/min; Est GFR (Non-African American) 74.6 ml/min; Potassium 3.9 mmol/L (3.5-5.1)
[2020-08-12] MEDS: TRIAMCINOLONE ACET NASAL SPRAY 10.8ML BTL NAE SCH ×2 (08:21→20:38)
[2020-08-12] MEDS: ACETAMINOPHEN 325 MG TAB PO PRN (08:22)
[2020-08-12] MEDS: KETOROLAC 0.5% OP SOLN 5 ML BTL OPR SCH ×4 (08:22→20:38)
[2020-08-12] MEDS: ASPIRIN 81 MG ECTAB PO SCH (08:23)
[2020-08-12] MEDS: CALCIUM POLYCARBOPHIL 625MG TAB PO SCH (08:23)
[2020-08-12] MEDS: FERROUS SULFATE 325 MG TAB PO SCH (08:23)
[2020-08-12] MEDS: CITALOPRAM 20 MG TAB PO SCH (08:23)
[2020-08-12] MEDS: ROSUVASTATIN CALCIUM 5 MG TAB PO SCH (08:23)
[2020-08-12] MEDS: AMIODARONE 200 MG TAB PO SCH ×3 (08:23→16:29)
[2020-08-12] MEDS: cephALEXin 500 MG CAP PO SCH ×4 (08:23→20:36)
[2020-08-12] MEDS: APIXABAN 5 MG TABLET PO SCH ×2 (08:23→20:36)
[2020-08-12] MEDS: FAMOTIDINE 10 MG TABLET PO SCH ×2 (08:23→20:36)
[2020-08-12] MEDS: MULTIVITAMIN TAB PO SCH (08:23)
--- NOTE | 2020-08-12 09:59 | Hospitalist Progress Note ---
Date of Service August 12, 2020 Assessment & Plan (1) Cellulitis of left leg: (2) Fall: (3) Status post total knee replacement, left: (4) Ambulatory dysfunction: 75-year-old male who has significant past medical history of CAD status post CABG x2, bioprosthetic AVR replacement, moderate aortic root enlargement 4.6 cm, HTN, HLD, post knee replacement DVT PE, history of pulmonary nodules, anticoagulated on Eliquis, NICOLE on BiPAP, PAF, CKD stage III, BPH, morbid obesity, asthma who presents to ED secondary to left knee pain inability to ambulate x3 days. Currently pain is well controlled. LE duplex negative for any DVT. Orthopedic evaluation and recommendations noted. No plan for any further intervention. PT evaluation noted. Low suspicion for left knee prosthesis infection. Possible cellulitis vs healing from surgery Vancomycin/ceftriaxone discontinued. Currently on keflex to complete treatment Continue home eliquis. Hyponatremia - resolved Hypophosphatemia - repleted Prolonged QTC Avoid qtc prolonging agents Abnormal CT Chest Mild distal esophageal wall thickening which is nonspecific Favors esophagitis. Mildly enlarged subcarinal lymph node is also nonspecific. A follow-up chest CT in 6 months is recommended On famotidine (5) Atrial flutter: Patient with documented PAF per Dr. Berger's note on 05/22/2020 He had episode of A. fib April 2020. 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 Echocardiogram 05/21 55%, grade 2 diastolic dysfunction, left atrium moderately enlarged, right atrium mildly enlarged, AVR bioprosthetic, pulmonary arterial systolic pressure 30-35 At time of diagnosis patient was already anticoagulated on Eliquis secondary to postoperative DVT/PE A Flutter with rapid ventricular rate. Started on amiodarone loading. Diltiazem added back by Cardiology Continue Eliquis Coating Machine Operator on board (6) Atelectasis: LLL CTA chest to negative for any acute findings. Has been on room air. (7) CAD (coronary artery disease): History of CABG x2 with WOLF to LAD, SVG to diagonal and bioprosthetic AVR secondary to severe aortic valve stenosis August 2017 Follows [facility] cardiology, Dr. Berger Continue ASA, rosuvastatin, diltiazem and Eliquis (8) NICOLE treated with BiPAP: bipap at HS (9) Morbid obesity: Life modifications counselling (10) DVT prophylaxis: continue nichole PCP: Dirk FULL CODE Admission and Anticipated Discharge Date Admission Date: August 07, 2020 Subjective Patient seen and examined. Reports only mild left knee pain Reported an episode of palpitation yesterday night Heart rates in the low 100s this morning Review of Systems Review of Systems: All systems reviewed & are unremarkable except as noted in Subjective Physical Exam Constitutional: + well hydrated and + obese; no acute distress Eyes: PERRL, conjunctivae normal, anicteric sclerae ENMT: external ear and nose normal, oropharynx normal Respiratory: normal respiratory effort, lungs clear to auscultation Cardiovascular: Rate/Rhythm: + tachycardic and + irregularly irregular S1- S2 Gastrointestinal (Abdomen): normal bowel sounds, soft, nontender, no hepatosplenomegaly Musculoskeletal: Left LE edema Clean dressing over left knee. Debrided large left foot blister looks clean Neurologic: PERRL, EOMI, accommodation nl, no face palsy, no dysarthria Psychiatric: A+Ox3, euthymic affect Results & Data Results & Data ([facility]) Vital Signs (Past 12 Hours) Vital Signs Temp Pulse Pulse Resp BP Pulse Ox 08/12/20 07:31 36.3 C L 106 H 20 140/86 94 08/12/20 05:35 137 H 16 142/89 H 08/12/20 03:33 36.7 C 128 H 20 125/78 92 08/12/20 03:32 99 H 18 93 08/11/20 23:30 117 H 08/11/20 22:42 36.9 C 110 H 20 120/57 L 90 08/11/20 22:36 106 H 18 92 Laboratory Results Abnormal lab results 08/12/20 08/12/20 Range/Units 07:00 07:00 RBC 2.94 L (4.7-6.1) M/uL Hgb 9.8 L (14.0-18.0) g/dL Hct 29.1 L (42-52) % RDW Std Deviation 48.7 H (36.4-46.3) fL BUN 20 H (7-18) mg/dl BUN/Creatinine Ratio 20.7 H (10-20) Glucose 117 H (70-99) mg/dl
[2020-08-12] MEDS ORDERED: dilTIAZem HCl 60 MG TAB PO SCH (14:00)
--- NOTE | 2020-08-12 15:51 | Cardiology Progress Note ---
Date of Service August 12, 2020 Assessment & Plan (1) PAF (paroxysmal atrial fibrillation): Now in atrial fibrillation with elevated ventricular response rate. Rates have not slowed since initiation of amiodarone, extended release diltiazem on hold. Plan continue anticoagulation. Add oral diltiazem short acting 30 mg 4 times daily to current regimen. With plans of resuming oral diltiazem versus change to beta-pillo as course progresses. Patient agreeable to plan (2) Total knee replacement status: (3) Postoperative pain of left knee: (4) Generalized weakness: (5) Hx of CABG: (6) S/P AVR: Admission and Anticipated Discharge Date Admission Date: August 07, 2020 Subjective Patient seen and examined, chart, medications, telemetry reviewed rhythm atrial fibrillation with elevated ventricular response rate. No bradycardia arrhythmias Continues to experience elevated heart rates. Mild fatigue no dizziness lightness syncope or near syncope. Review of Systems Review of Systems: All systems reviewed & are unremarkable except as noted in HPI & below Physical Exam Constitutional: WD/WN, vitals as above Eyes: PERRL, conjunctivae normal, anicteric sclerae ENMT: external ear and nose normal, oropharynx normal Neck: trachea midline, no thyromegaly Respiratory: normal respiratory effort, lungs clear to auscultation Cardiovascular: Rate/Rhythm: + tachycardic and + irregularly irregular Heart Sounds: normal S1, normal S2 and + murmur (Grade 2/6 systolic); no gallop Palpation: normal PMI Vessels: normal carotid upstroke and radial pulses present; no JVD and no carotid bruit Extremities: no edema Gastrointestinal (Abdomen): normal bowel sounds, soft, nontender, no he patosplenomegaly Musculoskeletal: Left knee and lower extremity edematous Skin: no rashes, warm and dry Neurologic: PERRL, EOMI, accommodation nl, no face palsy, no dysarthria Psychiatric: A+Ox3, euthymic affect Results & Data ([facility]) Vital Signs (Past 12 Hours) Vital Signs Temp Pulse Pulse Resp BP Pulse Ox 08/12/20 15:31 36.7 C 119 H 16 147/98 H 98 08/12/20 15:21 115 H 08/12/20 11:51 36.6 C 135 H 18 157/97 H 93 08/12/20 07:31 36.3 C L 106 H 20 140/86 94 08/12/20 05:35 137 H 16 142/89 H Laboratory Results Laboratory Results - last 24 hr 08/12/20 08/12/20 07:00 07:00 WBC 10.09 RBC 2.94 L Hgb 9.8 L Hct 29.1 L MCV 99.0 MCH 33.3 MCHC 33.7 RDW Std Deviation 48.7 H RDW Coeff of Ej 13.6 Plt Count 271 MPV 9.3 Sodium 138 Potassium 3.9 Chloride 105 Carbon Dioxide 26 Anion Gap 7.0 BUN 20 H Creatinine 0.98 Est Cr Clr Drug Dosing 81.4 Est GFR ( Amer) 86.5 Est GFR (Non-Af Amer) 74.6 BUN/Creatinine Ratio 20.7 H Glucose 117 H Calcium 9.2
[2020-08-12] MEDS: dilTIAZem HCl 60 MG TAB PO SCH ×3 (16:29→20:37)
[2020-08-12] MEDS: TERAZOSIN HCL 1 MG CAP PO SCH (20:37)
[2020-08-13] MEDS: METOPROLOL TARTRATE 1 MG/ML VIAL IV PRN ×3 (05:10→22:59)
[2020-08-13 06:37] LABS: BUN Creatinine Ratio 21.2 (10-20); Creatinine Clr Calc Pharmacy 73.2 ml/min; Est GFR (African American) 76.9 ml/min; Est GFR (Non-African American) 66.3 ml/min; Magnesium 2.4 mg/dl (1.8-2.4); Phosphorus 3.2 mg/dl (2.5-4.9); Potassium 4.2 mmol/L (3.5-5.1)
[2020-08-13] MEDS: dilTIAZem HCl 60 MG TAB PO SCH (07:36)
[2020-08-13] MEDS: APIXABAN 5 MG TABLET PO SCH ×2 (07:38→21:13)
[2020-08-13] MEDS: FERROUS SULFATE 325 MG TAB PO SCH (07:38)
[2020-08-13] MEDS: ROSUVASTATIN CALCIUM 5 MG TAB PO SCH (07:38)
[2020-08-13] MEDS: CALCIUM POLYCARBOPHIL 625MG TAB PO SCH (07:39)
[2020-08-13] MEDS: MULTIVITAMIN TAB PO SCH (07:39)
[2020-08-13] MEDS: ASPIRIN 81 MG ECTAB PO SCH (07:39)
[2020-08-13] MEDS: CITALOPRAM 20 MG TAB PO SCH (07:40)
[2020-08-13] MEDS: AMIODARONE 200 MG TAB PO SCH ×4 (07:40→21:13)
[2020-08-13] MEDS: FAMOTIDINE 10 MG TABLET PO SCH ×2 (07:40→21:12)
[2020-08-13] MEDS: cephALEXin 500 MG CAP PO SCH (07:41)
[2020-08-13] MEDS: KETOROLAC 0.5% OP SOLN 5 ML BTL OPR SCH ×4 (07:41→21:13)
[2020-08-13] MEDS: TRIAMCINOLONE ACET NASAL SPRAY 10.8ML BTL NAE SCH ×2 (07:45→21:13)
--- NOTE | 2020-08-13 09:59 | Hospitalist Progress Note ---
Date of Service August 13, 2020 Assessment & Plan (1) Cellulitis of left leg: (2) Fall: (3) Status post total knee replacement, left: (4) Ambulatory dysfunction: 75-year-old male who has significant past medical history of CAD status post CABG x2, bioprosthetic AVR replacement, moderate aortic root enlargement 4.6 cm, HTN, HLD, post knee replacement DVT PE, history of pulmonary nodules, anticoagulated on Eliquis, NICOLE on BiPAP, PAF, CKD stage III, BPH, morbid obesity, asthma who presents to ED secondary to left knee pain inability to ambulate x3 days. Currently pain is well controlled. LE duplex negative for any DVT. Orthopedic evaluation and recommendations noted. No plan for any further intervention. PT evaluation noted. Low suspicion for left knee prosthesis infection. Possible cellulitis vs healing from surgery Vancomycin/ceftriaxone discontinued. Currently on keflex to complete treatment Continue home eliquis. Hyponatremia - resolved Hypophosphatemia - repleted Prolonged QTC Avoid qtc prolonging agents Abnormal CT Chest Mild distal esophageal wall thickening which is nonspecific Favors esophagitis. Mildly enlarged subcarinal lymph node is also nonspecific. A follow-up chest CT in 6 months is recommended On famotidine (5) Atrial flutter: Patient with documented PAF per Dr. Berger's note on 05/22/2020 He had episode of A. fib April 2020. 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 Echocardiogram 05/21 55%, grade 2 diastolic dysfunction, left atrium moderately enlarged, right atrium mildly enlarged, AVR bioprosthetic, pulmonary arterial systolic pressure 30-35 At time of diagnosis patient was already anticoagulated on Eliquis secondary to postoperative DVT/PE A Flutter with rapid ventricular rate. Currently on amiodarone loading and diltiazem. Driver/Refuse Collector on board now continue medication adjustments to achieve optimal rate control Continue Eliquis (6) Atelectasis: LLL CTA chest to negative for any acute findings. Has been on room air. (7) CAD (coronary artery disease): History of CABG x2 with WOLF to LAD, SVG to diagonal and bioprosthetic AVR secondary to severe aortic valve stenosis August 2017 Follows [facility] cardiology, Dr. Berger Continue ASA, rosuvastatin, diltiazem and Eliquis (8) NICOLE treated with BiPAP: bipap at HS (9) Morbid obesity: Life modifications counselling (10) DVT prophylaxis: continue nichole PCP: Dirk FULL CODE Admission and Anticipated Discharge Date Admission Date: August 07, 2020 Subjective Patient seen and examined. Left knee pain is well controlled Still having tachycardia. Denies any other complaints Review of Systems Review of Systems: All systems reviewed & are unremarkable except as noted in Subjective Physical Exam Constitutional: + well hydrated and + obese; no acute distress Eyes: PERRL, conjunctivae normal, anicteric sclerae ENMT: external ear and nose normal, oropharynx normal Respiratory: normal respiratory effort, lungs clear to auscultation Cardiovascular: Rate/Rhythm: + tachycardic and + irregularly irregular S1-S2 Gastrointestinal (Abdomen): normal bowel sounds, soft, nontender, no hepatosplenomegaly Musculoskeletal: Clean dressing over left knee Debrided large left foot blister looks clean Left leg edema Neurologic: PERRL, EOMI, accommodation nl, no face palsy, no dysarthria Psychiatric: A+Ox3, euthymic affect Results & Data Results & Data ([facility]) Vital Signs (Past 12 Hours) Vital Signs Temp Pulse Pulse Resp BP BP Pulse Ox 08/13/20 07:47 36.6 C 128 H 18 126/89 94 08/13/20 07:10 110 H 08/13/20 05:10 130 H 08/13/20 03:55 37 C 130 H 18 143/89 H 94 08/13/20 03:32 115 H 16 94 08/12/20 22:29 37.2 C 95 H 20 126/83 91 08/12/20 22:24 99 H 20 91 08/12/20 22:14 137 H 140/83 Laboratory Results Abnormal lab results 08/13/20 Range/Units 05:32 BUN 23 H (7-18) mg/dl BUN/Creatinine Ratio 21.2 H (10-20) Glucose 103 H (70-99) mg/dl
[2020-08-13] MEDS: ACETAMINOPHEN 325 MG TAB PO PRN ×2 (10:54→16:38)
--- NOTE | 2020-08-13 11:28 | Cardiology Progress Note ---
Date of Service August 13, 2020 Assessment & Plan (1) PAF (paroxysmal atrial fibrillation): Now in atrial fibrillation with elevated ventricular response rate. Rate slowed only minimally with amiodarone and oral diltiazem short acting Plan continue anticoagulation. Continue amiodarone load additional 24 hours on telemetry Begin long-acting diltiazem with slightly reduced dose today (2) Total knee replacement status: (3) Postoperative pain of left knee: (4) Generalized weakness: (5) Hx of CABG: (6) S/P AVR: Admission and Anticipated Discharge Date Admission Date: August 07, 2020 Subjective Patient seen and examined, chart, medications, telemetry reviewed rhythm, remains in atrial fibrillation with elevated ventricular response rate. No bradycardia arrhythmias heart rates have slowed only slightly No patient complaint, no dizziness or lightheadedness, chest pain or shortness of breath Physical Exam Constitutional: WD/WN, vitals as above Eyes: PERRL, conjunctivae normal, anicteric sclerae ENMT: external ear and nose normal, oropharynx normal Neck: trachea midline, no thyromegaly Respiratory: normal respiratory effort, lungs clear to auscultation Cardiovascular: Rate/Rhythm: + tachycardic and + irregularly irregular Heart Sounds: normal S1, normal S2 and + murmur (Grade 2/6 systolic); no gallop Palpation: normal PMI Vessels: normal carotid upstroke and radial pulses present; no JVD and no carotid bruit Extremities: no edema Gastrointestinal (Abdomen): normal bowel sounds, soft, nontender, no hepatosplenomegaly Skin: no rashes, warm and dry Neurologic: PERRL, EOMI, accommodation nl, no face palsy, no dysarthria Psychiatric: A+Ox3, euthymic affect Results & Data ([facility]) Vital Signs (Past 12 Hours) Vital Signs Temp Pulse Pulse Resp BP Pulse Ox 08/13/20 11:15 36.6 C 100 H 18 141/82 H 97 08/13/20 07:47 36.6 C 128 H 18 126/89 94 08/13/20 07:10 110 H 08/13/20 05:10 130 H 08/13/20 03:55 37 C 130 H 18 143/89 H 94 08/13/20 03:32 115 H 16 94
[2020-08-13] MEDS: dilTIAZem HCL 240 MG CAPCR PO SCH (11:58)
[2020-08-13] MEDS: TERAZOSIN HCL 1 MG CAP PO SCH (21:12)
[2020-08-14] MEDS: METOPROLOL TARTRATE 1 MG/ML VIAL IV PRN (06:41)
[2020-08-14] MEDS: APIXABAN 5 MG TABLET PO SCH ×2 (08:15→20:05)
[2020-08-14] MEDS: ROSUVASTATIN CALCIUM 5 MG TAB PO SCH (08:16)
[2020-08-14] MEDS: CITALOPRAM 20 MG TAB PO SCH (08:16)
[2020-08-14] MEDS: dilTIAZem HCL 240 MG CAPCR PO SCH (08:16)
[2020-08-14] MEDS: AMIODARONE 200 MG TAB PO SCH ×4 (08:16→20:06)
[2020-08-14] MEDS: FERROUS SULFATE 325 MG TAB PO SCH (08:16)
[2020-08-14] MEDS: ASPIRIN 81 MG ECTAB PO SCH (08:17)
[2020-08-14] MEDS: MULTIVITAMIN TAB PO SCH (08:17)
[2020-08-14] MEDS: CALCIUM POLYCARBOPHIL 625MG TAB PO SCH (08:17)
[2020-08-14] MEDS: KETOROLAC 0.5% OP SOLN 5 ML BTL OPR SCH ×4 (08:18→20:06)
[2020-08-14] MEDS: TRIAMCINOLONE ACET NASAL SPRAY 10.8ML BTL NAE SCH ×2 (08:18→20:07)
[2020-08-14] MEDS: ACETAMINOPHEN 325 MG TAB PO PRN ×2 (08:23→14:59)
[2020-08-14 08:58] LABS: BUN Creatinine Ratio 19.8 (10-20); Creatinine Clr Calc Pharmacy 75.2 ml/min; Est GFR (African American) 80.5 ml/min; Est GFR (Non-African American) 69.4 ml/min; Potassium 4.1 mmol/L (3.5-5.1)
[2020-08-14] MEDS: FAMOTIDINE 10 MG TABLET PO SCH ×2 (09:54→20:05)
--- NOTE | 2020-08-14 10:27 | Hospitalist Progress Note ---
Date of Service August 14, 2020 Assessment & Plan (1) Cellulitis of left leg: (2) Fall: (3) Status post total knee replacement, left: (4) Ambulatory dysfunction: 75-year-old male who has significant past medical history of CAD status post CABG x2, bioprosthetic AVR replacement, moderate aortic root enlargement 4.6 cm, HTN, HLD, post knee replacement DVT PE, history of pulmonary nodules, anticoagulated on Eliquis, NICOLE on BiPAP, PAF, CKD stage III, BPH, morbid obesity, asthma who presents to ED secondary to left knee pain inability to ambulate x3 days. LE duplex negative for any DVT. Orthopedic evaluation and recommendations noted. No plan for any further intervention. PT evaluation noted. Low suspicion for left knee prosthesis infection. Possible cellulitis vs healing from surgery Vancomycin/ceftriaxone discontinued. Completed antibiotics treatment Continue home eliquis. PIERCE socks Hyponatremia - resolved Hypophosphatemia - repleted Prolonged QTC Avoid qtc prolonging agents Abnormal CT Chest Mild distal esophageal wall thickening which is nonspecific Favors esophagitis. Mildly enlarged subcarinal lymph node is also nonspecific. A follow-up chest CT in 6 months is recommended On famotidine (5) Atrial flutter: Patient with documented PAF per Dr. Berger's note on 05/22/2020 He had episode of A. fib April 2020. 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 Echocardiogram 05/21 55%, grade 2 diastolic dysfunction, left atrium moderately enlarged, right atrium mildly enlarged, AVR bioprosthetic, pulmonary arterial systolic pressure 30-35 A Flutter with rapid ventricular rate. Currently on amiodarone and diltiazem. Clinical Professor on board with medication adjustments to achieve optimal rate control Continue Eliquis (6) Atelectasis: LLL CTA chest to negative for any acute findings. Has been on room air. (7) CAD (coronary artery disease): History of CABG x2 with WOLF to LAD, SVG to diagonal and bioprosthetic AVR secondary to severe aortic valve stenosis August 2017 Follows [facility] cardiology, Dr. Berger Continue ASA, rosuvastatin, diltiazem and Eliquis (8) NICOLE treated with BiPAP: bipap at HS (9) Morbid obesity: Life modifications counselling (10) DVT prophylaxis: continue eliquis PCP: Cavazos FULL CODE Continue PT/OT. Plan to discharge to SNF once medically stable Admission and Anticipated Discharge Date Admission Date: August 07, 2020 Subjective Patient seen and examined HR recordings mostly >100 Currently at 90s during my evaluation Reports some stiffness in left knee. Pain controlled. Review of Systems Review of Systems: All systems reviewed & are unremarkable except as noted in Subjective Physical Exam Constitutional: + well hydrated and + obese; no acute distress Eyes: PERRL, conjunctivae normal, anicteric sclerae ENMT: external ear and nose normal, oropharynx normal Respiratory: normal respiratory effort, lungs clear to auscultation Cardiovascular: Rate/Rhythm: regular rate and + irregularly irregular S1 S2 Gastrointestinal (Abdomen): normal bowel sounds, soft, nontender, no hepatosplenomegaly Musculoskeletal: Left knee surgical site healing well. No erythema Debrided large left foot blister looks clean Left leg edema Neurologic: PERRL, EOMI, accommodation nl, no face palsy, no dysarthria Psychiatric: A+Ox3, euthymic affect Results & Data Results & Data ([facility]) Vital Signs (Past 12 Hours) Vital Signs Temp Pulse Pulse Resp BP Pulse Ox 08/14/20 07:54 127 H 08/14/20 07:46 36.8 C 122 H 18 123/53 L 92 08/14/20 03:50 121 H 14 96 08/14/20 03:37 36.8 C 99 H 20 125/74 95 Laboratory Results Abnormal lab results 08/14/20 Range/Units 07:39 BUN 21 H (7-18) mg/dl
--- NOTE | 2020-08-14 12:45 | Anesthesiology Consultation ---
Date of Service August 14, 2020 Assessment & Plan (1) Encounter for pre-operative examination: History Height/Weight Height: 5 ft 8 in Weight: 117.3 kg Allergies Allergy/AdvReac Type Severity Reaction Status Date / Time latex Allergy Mild Rash Verified 08/07/20 16:37 Medications Home Medications Medication Instructions Recorded Confirmed Last Taken amoxicillin 500 mg PO UD PRN 05/07/18 08/07/20 Unknown aspirin 81 mg PO QAM 05/07/18 08/07/20 08/07/20 calcium polycarbophil [FiberCon] 1 dose PO DAILY 05/07/18 08/07/20 08/07/20 citalopram 20 mg PO QAM 05/07/18 08/07/20 08/07/20 clobetasol [Temovate] 1 applic TOPICAL DAILY PRN 05/07/18 08/07/20 05/19/18 diltiazem HCl 300 mg PO QAM 05/07/18 08/07/20 08/07/20 erythromycin 1 applic OPHTHALMIC (EYE) DAILY PRN 05/07/18 08/07/20 05/19/18 imiquimod [Aldara] 1 dose TOPICAL UD PRN 05/07/18 08/07/20 05/19/18 lactic acid 1 applic TOPICAL UD PRN 05/07/18 08/07/20 05/19/18 multivitamin 1 tab PO QAM 05/07/18 08/07/20 01/19/19 triamcinolone acetonide [Nasacort] 1 spray INTRANASAL BID 05/07/18 08/07/20 08/07/20 08:00 fluticasone propion-salmeterol 1 inh INHALATION BID PRN 12/01/18 08/07/20 01/19/19 [Advair Diskus] apixaban [Eliquis] 5 mg PO BID 08/07/20 08/07/20 08/07/20 08:00 ferrous sulfate 325 mg PO DAILY 08/07/20 08/07/20 08/07/20 ketorolac 1 drp OPR QID 08/07/20 08/07/20 Unknown rosuvastatin 5 mg PO DAILY 08/07/20 08/07/20 08/07/20 terazosin 2 mg PO HS 06/07/21 06/07/21 06/06/21 oxycodone 5 mg PO Q6H PRN 08/08/20 08/08/20 Unknown acetaminophen 650 mg PO Q4H PRN #60 tab 08/11/20 Unknown cephalexin 500 mg PO QID 2 Days #8 cap 08/11/20 Unknown famotidine [Acid Fire Manager 10 mg PO BID 30 Days #60 tab 08/11/20 Unknown (famotidine)] Active Medications Generic Name Dose Route Start Last Admin Trade Name Freq PRN Reason Stop Dose Admin Acetaminophen 650 mg 08/07/20 21:25 08/14/20 08:23 Acetaminophen 325 Mg Tab PO 09/06/20 21:24 650 mg Q4H PRN Administration pain/fever Amiodarone HCl 200 mg 08/13/20 13:00 08/14/20 08:16 Amiodarone 200 Mg Tab PO 09/12/20 12:59 200 mg QID MILTON Administration Apixaban 5 mg 08/07/20 22:00 08/14/20 08:15 Apixaban 5 Mg Tablet PO 09/06/20 21:59 5 mg BID MILTON Administration Aspirin 81 mg 08/08/20 09:00 08/14/20 08:17 Aspirin 81 Mg Ectab PO 09/07/20 08:59 81 mg QAM MILTON Administration Bacitracin 1 appln 08/09/20 12:09 08/10/20 08:57 Bacitracin Oint 15 Gm Tube EXT 09/08/20 12:08 1 appln Q12 PRN Administration dressing changes Calcium Polycarbophil 625 mg 08/08/20 09:00 08/14/20 08:17 Calcium Polycarbophil 625mg Tab PO 09/07/20 08:59 625 mg DAILY MILTON Administration Citalopram Hydrobromide 20 mg 08/08/20 09:00 08/14/20 08:16 Citalopram 20 Mg Tab PO 09/07/20 08:59 20 mg QAM MILTON Administration Diltiazem HCl 300 mg 08/08/20 09:00 08/11/20 07:43 Diltiazem Hcl 300 Mg Capcr PO 09/07/20 08:59 300 mg QAM MILTON Administration Diltiazem HCl 240 mg 08/13/20 11:30 08/14/20 08:16 Diltiazem Hcl 240 Mg Capcr PO 09/12/20 11:29 240 mg QAM MILTON Administration Famotidine 10 mg 08/07/20 22:00 08/14/20 09:54 Famotidine 10 Mg Tablet PO 09/06/20 21:59 10 mg BID MILTON Administration Ferrous Sulfate 325 mg 08/08/20 09:00 08/14/20 08:16 Ferrous Sulfate 325 Mg Tab PO 09/07/20 08:59 325 mg DAILY MILTON Administration Ketorolac Tromethamine 1 drops 08/07/20 23:00 08/14/20 08:18 Ketorolac 0.5% Op Soln 5 Ml Btl OPR 09/06/20 22:59 1 drops QID MILTON Administration Metoprolol Tartrate 5 mg 08/11/20 14:30 08/14/20 06:41 Metoprolol Tartrate 1 Mg/Ml Vial IV 09/10/20 12:18 5 mg Q5M PRN Administration Tachycardia >120 Multivitamins 1 tab 08/08/20 09:00 08/14/20 08:17 Multivitamin Tab PO 09/07/20 08:59 1 tab QAM MILTON Administration Rosuvastatin Calcium 5 mg 08/08/20 09:00 08/14/20 08:16 Rosuvastatin Calcium 5 Mg Tab PO 09/07/20 08:59 5 mg DAILY MILTON Administration Terazosin HCl 2 mg 08/07/20 22:00 08/13/20 21:12 Terazosin Hcl 1 Mg Cap PO 09/06/20 21:59 2 mg HS MILTON Administration Triamcinolone Acetonide 1 sprays 08/07/20 22:00 08/14/20 08:18 Triamcinolone Acet Nasal [place] 10.8ml Btl JAROD 09/06/20 21:59 1 sprays BID MILTON Administration Past Medical History Medical History CAD (coronary artery disease) Chronic back pain Colon polyps Cough FROM SINUS TROUBLE- INHALER FOR THIS Depression GERD (gastroesophageal reflux disease) Hearing deficit BL YUAN Hypertension NICOLE treated with BiPAP Osteoarthritis Sleep apnea CPAP Spinal stenosis Past Family History Family History Father COPD (chronic obstructive pulmonary disease) Mother Hypertension Past Surgical History Surgical History History of adenoidectomy History of aortic valve replacement 08/2017 - [facility] - FOLLOW W/ DR. CISNEROS History of appendectomy History of cardiac cath 08/2017 - [facility] - PRE OP CATH FOR VALVE REPLACEMENT - NO STENTS/ANGIOPLASTY - FOLLOWS W/ DR. CISNEROS History of colonoscopy History of tooth extraction Hx of CABG 08/2017 Hx of tonsillectomy Hx of vitrectomy RIGHT EYE Social History Smoking Status: Never smoker Do You Dip or Chew Tobacco: No Smoking End Date: 1983 Hx Alcohol Use: No Alcohol type: beer alcohol intake frequency: a few times a month Hx Substance Use: No substance use type: does not use Physical Exam Vital Signs Last Vital Signs Temp 36.5 C 08/14/20 11:50 Pulse 124 H 08/14/20 11:50 Resp 18 08/14/20 11:50 BP 122/80 08/14/20 11:50 Pulse Ox 96 08/14/20 11:50 Testing Laboratory Results 08/12/20 07:00 08/14/20 07:39 Urine Color Yellow 08/07/20 15:15 Urine Appearance Clear (Clear) 08/07/20 15:15 Urine pH 5.5 (4.5-7.5) 08/07/20 15:15 Ur Specific [place] 1.015 (1.000-1.030) 08/07/20 15:15 Urine Protein 1+ (Negative) H 08/07/20 15:15 Urine Glucose (UA) Negative (Negative) 08/07/20 15:15 Urine Ketones Negative (Negative) 08/07/20 15:15 Urine Nitrite Negative (Negative) 08/07/20 15:15 Ur Leukocyte Esterase Negative (Negative) 08/07/20 15:15 Urine WBC (Auto) 1-5 /hpf (0-5) 08/07/20 15:15 Urine RBC (Auto) 5-10 /hpf (0-4) H 08/07/20 15:15 U Hyaline Cast (Auto) 1-5 /lpf (0-5) 08/07/20 15:15 U Epithel Cells (Auto) 0-5 /lpf (0-5) 08/07/20 15:15 Urine Bacteria (Auto) Negative (Negative) 08/07/20 15:15 08/07/20 23:45 Gram Stain - Final Knee,Left Wound Culture - Final Bacillus species not anthracis Electrocardiogram Date: 08/09/20 Atrial flutter with variable A-V block with premature ventricular or aberrantly conducted complexes Nonspecific ST and T wave abnormality Prolonged QT Abnormal ECG When compared with ECG of 08-AUG-2020 06:42, Incomplete right bundle branch block is no longer Present Criteria for Septal infarct are no longer Present Confirmed by Joe Holden ([id number]) on 08/11/2020 5:50:43 AM Chest X-Ray Date: 08/07/20 IMPRESSION: 1. Mild cardiomegaly. 2. Patchy density at the left lung base. This could represent atelectasis or pneumonia.
--- NOTE | 2020-08-14 12:47 | Cardiology Progress Note ---
Date of Service August 14, 2020 Assessment & Plan (1) PAF (paroxysmal atrial fibrillation): (2) Total knee replacement status: (3) Postoperative pain of left knee: (4) Generalized weakness: (5) Hx of CABG: (6) S/P AVR: Patient with recurrent atrial fibrillation / flutter with rapid ventricular rate in the 120s at rest in bed despite oral diltiazem and oral amiodarone. Was off of Eliquis briefly to allow for recent left knee replacement on 08/03/20. CTA and LEVduplex negative for pulmonary embolism or DVT. Slowly making post op progress with physical therapy. Continue diltiazem CD 240 mg, oral amiodarone. Update LFTs, TSH. Continue Eliquis for stroke prevention. Plan for SEBASTIAN guided cardioversion 08/15/20 with anesthesia consult. Informed consent obtained and placed on chart. Admission and Anticipated Discharge Date Admission Date: August 07, 2020 Subjective Patient seen and examined, chart, medications, telemetry reviewed rhythm, remains in atrial fibrillation /flutter with elevated ventricular response rate. No bradycardia arrhythmias heart rates have slowed only slightly No patient complaint, no dizziness or lightheadedness, chest pain or shortness of breath. Review of Systems Review of Systems: All systems reviewed & are unremarkable except as noted in HPI & below left knee and left lower leg still swollen Physical Exam Physical Exam: Temp Pulse Resp BP Pulse Ox 36.5 C 124 H 18 122/80 96 08/14/20 11:50 08/14/20 11:50 08/14/20 11:50 08/14/20 11:50 08/14/20 11:50 Constitutional: WD/WN, vitals as above Cardiovascular: Rate/Rhythm: + tachycardic and + irregularly irregular Vessels: no JVD Extremities: + edema (left knee and left lower leg 1+ edema) Neurologic: PERRL, EOMI, accommodation nl, no face palsy, no dysarthria Results & Data ([facility]) Vital Signs (Past 12 Hours) Vital Signs Temp Pulse Pulse Resp BP Pulse Ox 08/14/20 11:50 36.5 C 124 H 18 122/80 96 08/14/20 07:54 127 H 08/14/20 07:46 36.8 C 122 H 18 123/53 L 92 08/14/20 03:50 121 H 14 96 08/14/20 03:37 36.8 C 99 H 20 125/74 95 Laboratory Results Comprehensive Metabolic Panel 08/14/20 Range/Units 07:39 Sodium 137 (136-145) mmol/L Potassium 4.1 (3.5-5.1) mmol/L Chloride 105 (98-107) mmol/L Carbon Dioxide 24 (21-32) mmol/L BUN 21 H (7-18) mg/dl Creatinine 1.04 (0.6-1.4) mg/dl Glucose 97 (70-99) mg/dl Calcium 9.0 (8.5-10.1) mg/dl Intake and Output 08/13/20 08/14/20 08/14/20 22:59 06:59 14:59 Intake Total 770 / 1645 240 / 1645 Output Total 1100 / 2600 1100 / 2600 Balance -330 / -955 -860 / -955 Intake: Oral 770 / 1645 240 / 1645 Output: Urine 1100 / 2600 1100 / 2600 Other: Weight 117.3 kg
[2020-08-14] MEDS: TERAZOSIN HCL 1 MG CAP PO SCH (20:05)
[2020-08-15] MEDS: ACETAMINOPHEN 325 MG TAB PO PRN ×2 (01:49→20:21)
[2020-08-15] MEDS: FAMOTIDINE 10 MG TABLET PO SCH ×2 (08:06→20:24)
[2020-08-15] MEDS: AMIODARONE 200 MG TAB PO SCH ×4 (08:06→20:23)
[2020-08-15] MEDS: CALCIUM POLYCARBOPHIL 625MG TAB PO SCH (08:07)
[2020-08-15] MEDS: ROSUVASTATIN CALCIUM 5 MG TAB PO SCH (08:07)
[2020-08-15] MEDS: ASPIRIN 81 MG ECTAB PO SCH (08:07)
[2020-08-15] MEDS: MULTIVITAMIN TAB PO SCH (08:07)
[2020-08-15] MEDS: FERROUS SULFATE 325 MG TAB PO SCH (08:07)
[2020-08-15] MEDS: TRIAMCINOLONE ACET NASAL SPRAY 10.8ML BTL NAE SCH ×2 (08:08→20:25)
[2020-08-15] MEDS: CITALOPRAM 20 MG TAB PO SCH (08:08)
[2020-08-15] MEDS: APIXABAN 5 MG TABLET PO SCH ×2 (08:08→20:23)
[2020-08-15] MEDS: KETOROLAC 0.5% OP SOLN 5 ML BTL OPR SCH ×4 (08:08→20:22)
[2020-08-15 08:44] LABS: Hematocrit (blood only) 30.9 % (42-52); Mean Corpuscular Hemoglobin 32.6 pg (25-34); Mean Corpuscular Hgb Conc 32.4 g/dL (32-36); Mean Corpuscular Volume 100.7 fL (80-100); Mean Platelet Volume 9.2 fL (7.4-10.4); Platelet Count 372 K/uL (130-400); RDW Coefficient of Variation 13.4 % (11.5-14.5); RDW Standard Deviation 48.3 fL (36.4-46.3); Red Blood Count 3.07 M/uL (4.7-6.1); White Blood Count 10.15 K/uL (4.8-10.8)
[2020-08-15 09:21] LABS: Albumin Level 2.8 gm/dl (3.4-5.0); BUN Creatinine Ratio 18.3 (10-20); Calcium 9.2 mg/dl (8.5-10.1); Creatinine Clr Calc Pharmacy 72.2 ml/min; Est GFR (African American) 76.9 ml/min; Est GFR (Non-African American) 66.3 ml/min; Potassium 4.2 mmol/L (3.5-5.1)
[2020-08-15 09:24] LABS: Albumin Globulin Ratio 0.7 (0.9-2); Globulin 4.2 gm/dl (2.5-4.0)
--- NOTE | 2020-08-15 09:45 | Hospitalist Progress Note ---
Date of Service August 15, 2020 Assessment & Plan (1) Cellulitis of left leg: (2) Fall: (3) Status post total knee replacement, left: (4) Ambulatory dysfunction: 75-year-old male who has significant past medical history of CAD status post CABG x2, bioprosthetic AVR replacement, moderate aortic root enlargement 4.6 cm, HTN, HLD, post knee replacement DVT PE, history of pulmonary nodules, anticoagulated on Eliquis, NICOLE on BiPAP, PAF, CKD stage III, BPH, morbid obesity, asthma who presents to ED secondary to left knee pain inability to ambulate x3 days. LE duplex negative for any DVT. Orthopedic evaluation and recommendations noted. No plan for any further intervention. PT evaluation noted. Low suspicion for left knee prosthesis infection. Possible cellulitis vs healing from surgery Vancomycin/ceftriaxone discontinued. Completed antibiotics treatment Continue home eliquis. PIERCE socks Hyponatremia - resolved Hypophosphatemia - repleted Prolonged QTC Avoid qtc prolonging agents Abnormal CT Chest Mild distal esophageal wall thickening which is nonspecific Favors esophagitis. Mildly enlarged subcarinal lymph node is also nonspecific. A follow-up chest CT in 6 months is recommended On famotidine (5) Atrial flutter: Patient with documented PAF per Dr. Berger's note on 05/22/2020 He had episode of A. fib April 2020. He underwent 7 days DO monitoring manager and was in atrial fibrillation with conversion to sinus rhythm on day 6 of 7. Echocardiogram 05/21 55%, grade 2 diastolic dysfunction, left atrium moderately enlarged, right atrium mildly enlarged, AVR bioprosthetic, pulmonary arterial systolic pressure 30-35 A Flutter with rapid ventricular rate. Currently on amiodarone. Rate has been poorly controlled despite medication adjustments Cardiology plans for SEBASTIAN with cardioversion today Continue Eliquis (6) Atelectasis: LLL CTA chest to negative for any acute findings. Has been on room air. (7) CAD (coronary artery disease): History of CABG x2 with WOLF to LAD, SVG to diagonal and bioprosthetic AVR secondary to severe aortic valve stenosis August 2017 Follows [facility] cardiology, Dr. Berger Continue ASA, rosuvastatin, diltiazem and Eliquis (8) NICOLE treated with BiPAP: bipap at HS (9) Morbid obesity: Life modifications counselling (10) DVT prophylaxis: continue eliquis PCP: Dirk FULL CODE Continue PT/OT. Plan to discharge to SNF once medically stable Admission and Anticipated Discharge Date Admission Date: August 07, 2020 Subjective Patient seen and examined Patient remains tachycardic with HR in 120s despite medication adjustments Cardiology planning SEBASTIAN with cardioversion today Patient seen and examined Does not have any new complaints Review of Systems Review of Systems: All systems reviewed & are unremarkable except as noted in Subjective Physical Exam Constitutional: + well hydrated and + obese; no acute distress Eyes: PERRL, conjunctivae normal, anicteric sclerae ENMT: external ear and nose normal, oropharynx normal Respiratory: normal respiratory effort, lungs clear to auscultation Cardiovascular: Rate/Rhythm: + tachycardic and + irregularly irregular S1 S2 Gastrointestinal (Abdomen): normal bowel sounds, soft, nontender, no hepatosplenomegaly Musculoskeletal: Left knee surgical site healing well. No erythema Debrided large left foot blister looks clean Left leg edema improving Neurologic: PERRL, EOMI, accommodation nl, no face palsy, no dysarthria Psychiatric: A+Ox3, euthymic affect Results & Data Results & Data ([facility]) Vital Signs (Past 12 Hours) Vital Signs Temp Pulse Pulse Resp BP Pulse Ox 08/15/20 07:35 36.4 C L 120 H 18 119/53 L 95 08/15/20 07:33 122 H 08/15/20 03:09 118 H 20 94 08/15/20 03:06 37.1 C 122 H 20 131/78 94 08/14/20 22:16 36.9 C 122 H 20 129/68 97 08/14/20 22:04 121 H 16 92 Laboratory Results Abnormal lab results 08/15/20 08/15/20 Range/Units 08:15 08:15 RBC 3.07 L (4.7-6.1) M/uL Hgb 10.0 L (14.0-18.0) g/dL Hct 30.9 L (42-52) % MCV 100.7 H (80-100) fL RDW Std Deviation 48.3 H (36.4-46.3) fL BUN 20 H (7-18) mg/dl Albumin 2.8 L (3.4-5.0) gm/dl Globulin 4.2 H (2.5-4.0) gm/dl Albumin/Globulin Ratio 0.7 L (0.9-2)
--- NOTE | 2020-08-15 12:56 | History & Physical Bridge Note ---
Date of Service August 15, 2020 History & Physical Bridge Note I have examined the patient, reviewed the History & Physical and in the interval since the performance of the History & Physical I have noted the following changes of clinical significance: no changes noted
--- NOTE | 2020-08-15 14:32 | Post Operative Brief Note ---
Cardiology Brief Post Op Date of Surgery August 15, 2020 Pre & Post Diagnosis Preprocedure diagnosis: Rule out left atrial appendage thrombus, symptomatic atrial flutter with rapid ventricular response Post procedure diagnosis: No left atrial appendage thrombus, successful c onversion to sinus rhythm. Operation Date: 08/15/20 14:15 Procedure Transesophageal echocardiogram guided direct-current cardioversion procedure: The patient's vital signs were monitored in the standard fashion. After informed consent was obtained and a timeout was performed the patient was sedated with the assistance of Dr. Sage Peck of anesthesia receiving 40 mg of IV lidocaine and 150 mg of IV propofol. The patient underwent goal-directed transesophageal echocardiogram guided cardioversion. Hypocontractility of the left atrial appendage was noted with spontaneous echo contrast noted in the left atrium and left atrial appendage. The ultrasound enhancement agent Definity was administered to improve delin eation of the endocardial border, without filling defect, and the left atrium and left atrial appendage were felt to be free of thrombus. Mild global left ventricular hypokinesis was present. Mild to moderate tricuspid regurgitation was present. After completion of the transesophageal echocardiogram, the patient underwent direct-current cardioversion receiving a single dose of 200 J of synchronized biphasic energy with successful conversion to sinus rhythm. Initial EKG performed post procedure on 08/15/20 at 1426 reveals sinus rhythm at 74 bpm with first-degree AV block and frequent PVCs in a pattern of ventricular bigeminy, incomplete right bundle branch block pattern noted on the sinus rhythm beats. Repeat EKG performed shortly thereafter at 1427 revealed sinus rhythm at 76 bpm with first-degree AV block, [place] interval 220 ms, incomplete right bundle branch block, QRS duration 160 ms, left anterior fascicular block pattern, stable corrected QT interval 486 ms. Plan: Continue oral amiodarone initiation. Resume oral diltiazem, however with short acting formulation as dose is titrated. Infectious Disease Technician Chivo Berger DO Pairer Inspector Mandy Harper RN Estimated Blood Loss 0 Findings Consistent with Post-Op Diagnosis Anesthesia Type MAC Complications none (Post procedure it was noted that patient had a mild chip in the right front tooth from the bite block. )
[2020-08-15] MEDS ORDERED: LIDOCAINE 2% MPF LOCAL 5 ML VIAL INFIL ONE (14:35)
[2020-08-15] MEDS ORDERED: PROPOFOL IV EMULSION 10 MG/ML 20 ML VIAL IV ONE (14:35)
--- NOTE | 2020-08-15 14:38 | Anesthesiology Progress Note ---
Date of Service August 15, 2020 Anesthesia Post Procedure Vital Signs Vital Signs: Temp Pulse Pulse Resp BP Pulse Ox 08/15/20 10:55 36.6 C 124 H 18 122/77 95 08/15/20 07:35 36.4 C L 120 H 18 119/53 L 95 08/15/20 07:33 122 H 08/15/20 03:09 118 H 20 94 08/15/20 03:06 37.1 C 122 H 20 131/78 94 08/14/20 22:16 36.9 C 122 H 20 129/68 97 08/14/20 22:04 121 H 16 92 08/14/20 19:30 36.9 C 93 H 18 115/69 94 08/14/20 14:52 36.3 C L 88 18 145/79 H 93 Pain Intensity Left Knee: Pain Intensity: 5 Bilateral Head: Pain Intensity: 5 Transfer of Care Handoff Completed per policy Notes Mental Status: alert / awake / arousable Patient Amnestic to Procedure: Yes Nausea / Vomiting: adequately controlled Pain: adequately controlled Airway Patency, RR, SpO2: stable & adequate BP & HR: stable & adequate Hydration State: stable & adequate Anesthetic Complications: no major complications apparent and Pt Satisfied with anesthetic care Notes: The patient is awake and comfortable. He converted to sinus rhythm.
--- NOTE | 2020-08-15 14:44 | Cardioversion ---
Date of Service August 15, 2020 Electrical Cardioversion Rpt Electrical Cardioversion Report Date of Surgery August 15, 2020 Pre & Post Diagnosis Preprocedure diagnosis: Rule out left atrial appendage thrombus, symptomatic atrial flutter with rapid ventricular response Post procedure diagnosis: No left atrial appendage thrombus, successful conversion to sinus rhythm. Operation Date: 08/15/20 14:15 Procedure Transesophageal echocardiogram guided direct-current cardioversion procedure: The patient's vital signs were monitored in the standard fashion. After informed consent was obtained and a timeout was performed the patient was sedated with the assistance of Dr. Sage Peck of anesthesia receiving 40 mg of IV lidocaine and 150 mg of IV propofol. The patient underwent goal-directed transesophageal echocardiogram guided cardioversion. Hypocontractility of the left atrial appendage was noted with spontaneous echo contrast noted in the left atrium and left atrial appendage. The ultrasound enhancement agent Definity was administered to improve delineation of the endocardial border, without filling defect, and the left atrium and left atrial appendage were felt to be free of thrombus. Mild global left ventricular hypokinesis was present. Mild to moderate tricuspid regurgitation was present. After completion of the transesophageal echocardiogram, the patient underwent direct-current cardioversion receiving a single dose of 200 J of synchronized biphasic energy with successful conversion to sinus rhythm. Initial EKG performed post procedure on 08/15/20 at 1426 reveals sinus rhythm at 74 bpm with first-degree AV block and frequent PVCs in a pattern of ventricular bigeminy, incomplete right bundle branch block pattern noted on the sinus rhythm beats. Repeat EKG performed shortly thereafter at 1427 revealed sinus rhythm at 76 bpm with first-degree AV block, [place] interval 220 ms, incomplete right bundle branch block, QRS duration 116 ms, left anterior fascicular block pattern, stable corrected QT interval 486 ms. Plan: Continue oral amiodarone initiation. Resume oral diltiazem, however with short acting formulation as dose is titrated. Blueprint Blocker Chivo Berger DO Stenotype Operator Mandy Harper RN Estimated Blood Loss 0 Findings Consistent with Post-Op Diagnosis Anesthesia Type MAC Complications none (Post procedure it was noted that patient had a mild chip in the right front tooth from the bite block. )
--- NOTE | 2020-08-15 14:49 | Cardiology Progress Note ---
Date of Service August 15, 2020 Assessment & Plan (1) PAF (paroxysmal atrial fibrillation): Patient underwent successful transesophageal echocardiogram guided direct- current cardioversion. Hypokinesis of the left atrial appendage noted without evidence of thrombus. Mild to moderate tricuspid regurgitation noted. Mild global left ventricular hypokinesis noted. I am optimistic that the patient's cardiac function will improve now that sinus rhythm has been reestablished. Frequent PVCs noted post procedure, the result within a few minutes. Continue oral amiodarone initiation, add back oral short acting diltiazem, titrate dose. Continue Eliquis for stroke prophylaxis. Patient did have a small chip of the right front tooth noted post procedure, there was related to the bite block. No oral pain reported. Continue to monitor this. This was discussed in detail with the patient. Advance activity as tolerated with PT tomorrow. (2) Total knee replacement status: (3) Postoperative pain of left knee: (4) Generalized weakness: (5) Hx of CABG: (6) S/P AVR: Admission and Anticipated Discharge Date Admission Date: August 07, 2020 Subjective Patient seen in cardiology follow up prior to, during, and post SEBASTIAN guided direct current cardioversion. Pt remained in AFL with RVR in the 120s overnight. Physical Exam Physical Exam: Temp Pulse Resp BP Pulse Ox 36.6 C 78 18 133/80 96 08/15/20 10:55 08/15/20 14:30 08/15/20 14:30 08/15/20 14:30 08/15/20 14:30 Constitutional: WD/WN, vitals as above Respiratory: normal respiratory effort, lungs clear to auscultation Cardiovascular: RRR, no murmur, no edema Gastrointestinal (Abdomen): normal bowel sounds, soft, nontender, no hepatosplenomegaly Neurologic: PERRL, EOMI, accommodation nl, no face palsy, no dysarthria Results & Data ([facility]) Vital Signs (Past 12 Hours) Vital Signs Temp Pulse Pulse Resp BP BP Pulse Ox 08/15/20 14:30 78 18 133/80 96 08/15/20 14:23 76 18 142/79 H 95 08/15/20 10:55 36.6 C 124 H 18 122/77 95 08/15/20 07:35 36.4 C L 120 H 18 119/53 L 95 08/15/20 07:33 122 H 08/15/20 03:09 118 H 20 94 08/15/20 03:06 37.1 C 122 H 20 131/78 94
[2020-08-15] MEDS: BACITRACIN OINT 15 GM TUBE EXT PRN (20:21)
[2020-08-15] MEDS: TERAZOSIN HCL 1 MG CAP PO SCH (20:24)
[2020-08-15] MEDS: dilTIAZem HCL 30 MG TAB PO SCH (21:24)
[2020-08-16 08:06] LABS: Hematocrit (blood only) 30.5 % (42-52); Mean Corpuscular Hemoglobin 32.8 pg (25-34); Mean Corpuscular Hgb Conc 32.8 g/dL (32-36); Mean Platelet Volume 9.2 fL (7.4-10.4); Platelet Count 364 K/uL (130-400); RDW Coefficient of Variation 13.6 % (11.5-14.5); RDW Standard Deviation 49.3 fL (36.4-46.3); Red Blood Count 3.05 M/uL (4.7-6.1); White Blood Count 10.05 K/uL (4.8-10.8)
[2020-08-16 08:35] LABS: BUN Creatinine Ratio 19.2 (10-20); Creatinine Clr Calc Pharmacy 53.8 ml/min; Est GFR (African American) 52.9 ml/min; Est GFR (Non-African American) 45.7 ml/min; Potassium 4.2 mmol/L (3.5-5.1)
[2020-08-16] MEDS: FAMOTIDINE 10 MG TABLET PO SCH ×2 (09:04→20:46)
[2020-08-16] MEDS: ASPIRIN 81 MG ECTAB PO SCH (09:05)
[2020-08-16] MEDS: ROSUVASTATIN CALCIUM 5 MG TAB PO SCH (09:05)
[2020-08-16] MEDS: AMIODARONE 200 MG TAB PO SCH ×4 (09:05→20:46)
[2020-08-16] MEDS: dilTIAZem HCL 30 MG TAB PO SCH ×3 (09:05→20:46)
[2020-08-16] MEDS: KETOROLAC 0.5% OP SOLN 5 ML BTL OPR SCH ×4 (09:06→20:47)
[2020-08-16] MEDS: MULTIVITAMIN TAB PO SCH (09:06)
[2020-08-16] MEDS: CITALOPRAM 20 MG TAB PO SCH (09:06)
[2020-08-16] MEDS: TRIAMCINOLONE ACET NASAL SPRAY 10.8ML BTL NAE SCH ×2 (09:06→20:47)
[2020-08-16] MEDS: FERROUS SULFATE 325 MG TAB PO SCH (09:06)
[2020-08-16] MEDS: CALCIUM POLYCARBOPHIL 625MG TAB PO SCH (09:06)
[2020-08-16] MEDS: APIXABAN 5 MG TABLET PO SCH ×2 (09:09→20:46)
--- NOTE | 2020-08-16 09:45 | Electrocardiogram Report ---
Test Reason : Blood Pressure : / mmHG Vent. Rate : 077 BPM Atrial Rate : 077 BPM P-R Int : 246 ms QRS Dur : 118 ms QT Int : 446 ms P-R-T Axes : 040 -57 071 degrees QTc Int : 504 ms Sinus rhythm with 1st degree A-V block Incomplete right bundle branch block Left anterior fascicular block Nonspecific T wave abnormality Prolonged QT Abnormal ECG When compared with ECG of 15-AUG-2020 14:27, (unconfirmed) No significant change was found Confirmed by Yan Koenig ([id number]) on 08/16/2020 9:44:52 AM Referred By: REFERRED SELF Confirmed By:Tobias Koenig
--- NOTE | 2020-08-16 09:46 | Electrocardiogram Report ---
Test Reason : Blood Pressure : / mmHG Vent. Rate : 076 BPM Atrial Rate : 076 BPM P-R Int : 220 ms QRS Dur : 116 ms QT Int : 400 ms P-R-T Axes : 098 -59 079 degrees QTc Int : 450 ms Sinus rhythm with 1st degree A-V block Incomplete right bundle branch block Left anterior fascicular block Nonspecific T wave abnormality Abnormal ECG When compared with ECG of 15-AUG-2020 14:26, (unconfirmed) Premature ventricular complexes are no longer Present Confirmed by Yan Koenig ([id number]) on 08/16/2020 9:45:43 AM Referred By: REFERRED SELF Confirmed By:Tobias Koenig
--- NOTE | 2020-08-16 09:47 | Electrocardiogram Report ---
Test Reason : Blood Pressure : / mmHG Vent. Rate : 074 BPM Atrial Rate : 074 BPM P-R Int : 216 ms QRS Dur : 114 ms QT Int : 496 ms P-R-T Axes : 106 -57 068 degrees QTc Int : 550 ms Sinus rhythm with 1st degree A-V block with frequent Premature ventricular complexes in a pattern of bigeminy Incomplete right bundle branch block Left anterior fascicular block Abnormal ECG When compared with ECG of 09-AUG-2020 06:15, Sinus rhythm has replaced Atrial flutter Left anterior fascicular block is now Present Incomplete right bundle branch block is now Present Confirmed by Yan Koenig ([id number]) on 08/16/2020 9:46:38 AM Referred By: REFERRED SELF Confirmed By:Tobias Koenig
--- NOTE | 2020-08-16 15:38 | Cardiology Progress Note ---
Date of Service August 16, 2020 Assessment & Plan (1) PAF (paroxysmal atrial fibrillation): Patient underwent successful transesophageal echocardiogram guided direct- current cardioversion. Screening liver function test and TSH performed 08/15/2020 were within normal meds. Continue oral amiodarone load. Continue short acting diltiazem 30 mg 3 times daily for now. Blood pressure trending toward improvement. No additional bradycardia arrhythmias. BRIANA noted, with creatinine of 1.47. Repeat in a.m. Stable prosthetic valve function noted at time of SEBASTIAN. Increase ambulation as tolerated from a physical therapy standpoint. Patient will need help with regards to arranging his postop orthopedic appointment for staple removal. (2) Total knee replacement status: (3) Postoperative pain of left knee: (4) Generalized weakness: (5) Hx of CABG: (6) S/P AVR: Patient with recurrent atrial fibrillation / flutter with rapid ventricular rate in the 120s at rest in bed despite oral diltiazem and oral amiodarone. Was off of Eliquis briefly to allow for recent left knee replacement on 08/03/20. CTA and LEVduplex negative for pulmonary embolism or DVT. Slowly making post op progress with physical therapy. Continue diltiazem CD 240 mg, oral amiodarone. Update LFTs, TSH. Continue Eliquis for stroke prevention. Plan for SEBASTIAN guided cardioversion 08/15/20 with anesthesia consult. Informed consent obtained and placed on chart. Admission and Anticipated Discharge Date Admission Date: August 07, 2020 Subjective Patient seen in cardiology follow-up of atrial flutter with rapid ventricular response. He remains in sinus rhythm having had SEBASTIAN guided direct-current cardioversion yesterday 08/15/2020. Occasional PVCs noted. No bradycardia arrhythmias. Review of Systems Review of Systems: All systems reviewed & are unremarkable except as noted in HPI & below Physical Exam Physical Exam: Temp Pulse Resp BP Pulse Ox 36.5 C 73 16 132/58 L 97 08/16/20 11:25 08/16/20 14:20 08/16/20 11:25 08/16/20 11:25 08/16/20 11:25 Constitutional: WD/WN, vitals as above Respiratory: normal respiratory effort, lungs clear to auscultation Cardiovascular: Rate/Rhythm: regular rhythm Heart Sounds: no murmur Vessels: no JVD Extremities: + edema (Mild edema of the operative, left lower leg) Gastrointestinal (Abdomen): normal bowel sounds, soft, nontender, no hepatosplenomegaly Neurologic: PERRL, EOMI, accommodation nl, no face palsy, no dysarthria Results & Data ([facility]) Vital Signs (Past 12 Hours) Vital Signs Temp Pulse Pulse Resp BP Pulse Ox 08/16/20 14:20 73 08/16/20 11:25 36.5 C 78 16 132/58 L 97 08/16/20 07:41 36.6 C 74 16 156/83 H 92 08/16/20 07:00 75 08/16/20 03:43 36.4 C L 78 18 145/75 H 97
--- NOTE | 2020-08-16 16:20 | Hospitalist Progress Note ---
Date of Service August 16, 2020 Assessment & Plan (1) PAF (paroxysmal atrial fibrillation): Afib with RVR worsened here in the hospital. Successful SEBASTIAN DCCV yesterday. Cont oral amio load. Cont diltiazem 30mg TID. Cont Eliquis for stroke prevention. (2) Fall: (3) Status post total knee replacement, left: Ortho here has seen him and felt his prosthetic joint was fine without evidence of infection. [employer] still in place. Will contact his Orthopedic surgeon, Dr. Caiced[facility] to see when janis should be removed. (4) Ambulatory dysfunction: PT/OT evaluated and recommends SNF. However, patient has a with PRES at home who depends on him and he would prefer to go back home with home health. (5) CAD (coronary artery disease): History of CABG x2 with WOLF to LAD, SVG to diagonal and bioprosthetic AVR secondary to severe aortic valve stenosis August 2017 Follows [facility] cardiology, Dr. Berger Continue ASA, rosuvastatin, diltiazem and Eliquis (6) S/P AVR: (7) NICOLE treated with BiPAP: bipap at HS (8) Morbid obesity: Life modification recommended to decrease percent body fat and increase lean muscle mass. (9) DVT prophylaxis: Eliquis Full COde Dispo-initially, plans for SNF, however, patient wishes to retunr home with Home Health. Will discuss with Case Management. Lena Sanders DO [facility] Hospitalist. Admission and Anticipated Discharge Date Admission Date: August 07, 2020 Subjective 75 yo M s/p traumatic fall to left knee s/p recent knee replacement. s/p SEBASTIAN cardioversion yesterday that was successful. DOing well today PT recommends SNF, hwoever, patient states he can walk and get around. Pain is controlled in knee. Tolerating PO. at bedside. Review of Systems Review of Systems: All systems reviewed & are unremarkable except as noted in Subjective Physical Exam Physical Exam: CONSTITUTIONAL: obese, vitals as above, generally well- appearing EYES: normal conjunctivae, no scleral icterus ENT: external ear and nose normal, MMM RESPIRATORY: clear to auscultation bilaterally, no crackles, rales or wheezes, normal respiratory effort CARDIOVASCULAR: regular rate and rhythm, S1 and 2 heard without murmurs, gallops or rubs, no JVD, no peripheral edema GASTROINTESTINAL: soft, nontender, nondistended. MUSCULOSKELETAL: strength 5/5 throughout, limited ROM of left knee. Vertical incision across left patella still closed with janis. SKIN: warm and dry, incision as above. NEUROLOGIC: CN 2-12 grossly intact, no sensory deficit, normal cognition, normal speech. PSYCHIATRIC: alert cooperative and oriented to person, place and time. Results & Data Results & Data ([facility]) Vital Signs (Past 12 Hours) Vital Signs Temp Pulse Pulse Resp BP Pulse Ox 08/16/20 16:19 36.6 C 73 16 135/70 97 08/16/20 14:20 73 08/16/20 11:25 36.5 C 78 16 132/58 L 97 08/16/20 07:41 36.6 C 74 16 156/83 H 92 08/16/20 07:00 75 Laboratory Results Short CBC 08/16/20 Range/Units 07:38 WBC 10.05 (4.8-10.8) K/uL Hgb 10.0 L (14.0-18.0) g/dL Hct 30.5 L (42-52) % Plt Count 364 (130-400) K/uL BMP 08/16/20 07:38 Sodium 137 Potassium 4.2 Chloride 106 Carbon Dioxide 25 BUN 28 H Creatinine 1.47 H D Glucose 94 Calcium 9.0 Medications Administered Current Inpatient Medications Acetaminophen (Acetaminophen 325 Mg Tab) 650 mg PO Q4H PRN PRN Reason: pain/fever Stop: 09/06/20 21:24 Last Admin: 08/15/20 20:21 Dose: 650 mg Documented by: Al Hydrox/Mg Hydrox/Simethicone (Aluminum/Magnesium Susp 30 Ml Udc) 30 ml PO Q6H PRN PRN Reason: Dyspepsia Stop: 09/06/20 21:24 Amiodarone HCl (Amiodarone 200 Mg Tab) 200 mg PO QID [facility] Stop: 09/12/20 12:59 Last Admin: 08/16/20 13:05 Dose: 200 mg Documented by: Apixaban (Apixaban 5 Mg Tablet) 5 mg PO BID [facility] Stop: 09/06/20 21:59 Last Admin: 08/16/20 09:09 Dose: 5 mg Documented by: Aspirin (Aspirin 81 Mg Ectab) 81 mg PO QAM [facility] Stop: 09/07/20 08:59 Last Admin: 08/16/20 09:05 Dose: 81 mg Documented by: Bacitracin (Bacitracin Oint 15 Gm Tube) 1 appln EXT Q12 PRN PRN Reason: dressing changes Stop: 09/08/20 12:08 Last Admin: 08/15/20 20:21 Dose: 1 appln Documented by: Calcium Polycarbophil (Calcium Polycarbophil 625mg Tab) 625 mg PO DAILY [facility] Stop: 09/07/20 08:59 Last Admin: 08/16/20 09:06 Dose: 625 mg Documented by: Citalopram Hydrobromide (Citalopram 20 Mg Tab) 20 mg PO QAM [facility] Stop: 09/07/20 08:59 Last Admin: 08/16/20 09:06 Dose: 20 mg Documented by: Diltiazem HCl (Diltiazem Hcl 240 Mg Capcr) 240 mg PO QAM [facility] Stop: 09/12/20 11:29 Last Admin: 08/14/20 08:16 Dose: 240 mg Documented by: Diltiazem HCl (Diltiazem Hcl 30 Mg Tab) 30 mg PO TID [facility] Stop: 09/14/20 20:59 Last Admin: 08/16/20 13:05 Dose: 30 mg Documented by: Famotidine (Famotidine 10 Mg Tablet) 10 mg PO BID [facility] Stop: 09/06/20 21:59 Last Admin: 08/16/20 09:04 Dose: 10 mg Documented by: Ferrous Sulfate (Ferrous Sulfate 325 Mg Tab) 325 mg PO DAILY [facility] Stop: 09/07/20 08:59 Last Admin: 08/16/20 09:06 Dose: 325 mg Documented by: Fluticasone/Vilanterol (Fluticasone/Vilanterol 100/25mcg 14 Puffs/Inhaler) 1 puffs INH BID PRN; Protocol PRN Reason: Shortness Of Breath Stop: 09/06/20 22:27 Ketorolac Tromethamine (Ketorolac 0.5% Op Soln 5 Ml Btl) 1 drops OPR QID [facility] Stop: 09/06/20 22:59 Last Admin: 08/16/20 13:06 Dose: 1 drops Documented by: Magnesium Hydroxide (Magnesium Hydroxide Susp 30 Ml Udc) 30 ml PO Q6H PRN PRN Reason: Constipation Stop: 09/06/20 21:24 Metoprolol Tartrate (Metoprolol Tartrate 1 Mg/Ml Vial) 5 mg IV Q5M PRN PRN Reason: Tachycardia >120 Stop: 09/10/20 12:18 Last Admin: 08/14/20 06:41 Dose: 5 mg Documented by: Multivitamins (Multivitamin Tab) 1 tab PO QAM [facility] Stop: 09/07/20 08:59 Last Admin: 08/16/20 09:06 Dose: 1 tab Documented by: Polyethylene Glycol (Polyethylene (Miralax) 17 Gm Pack) 17 gm PO DAILY PRN PRN Reason: Constipation Stop: 09/06/20 21:24 Rosuvastatin Calcium (Rosuvastatin Calcium 5 Mg Tab) 5 mg PO DAILY [facility] Stop: 09/07/20 08:59 Last Admin: 08/16/20 09:05 Dose: 5 mg Documented by: Terazosin HCl (Terazosin Hcl 1 Mg Cap) 2 mg PO HS [facility] Stop: 09/06/20 21:59 Last Admin: 08/15/20 20:24 Dose: 2 mg Documented by: Triamcinolone Acetonide (Triamcinolone Acet Nasal [place] 10.8ml Btl) 1 sprays JAROD BID [facility] Stop: 09/06/20 21:59 Last Admin: 08/16/20 09:06 Dose: 1 sprays Documented by:
[2020-08-16] MEDS: ACETAMINOPHEN 325 MG TAB PO PRN (20:45)
[2020-08-16] MEDS: TERAZOSIN HCL 1 MG CAP PO SCH (20:45)
[2020-08-17 09:50] LABS: BUN Creatinine Ratio 20.1 (10-20); Calcium 9.2 mg/dl (8.5-10.1); Creatinine Clr Calc Pharmacy 65.4 ml/min; Est GFR (Non-African American) 57.8 ml/min; Potassium 4.6 mmol/L (3.5-5.1)
[2020-08-17] MEDS: dilTIAZem HCL 30 MG TAB PO SCH (09:50)
[2020-08-17] MEDS: AMIODARONE 200 MG TAB PO SCH (09:50)
[2020-08-17] MEDS: TRIAMCINOLONE ACET NASAL SPRAY 10.8ML BTL NAE SCH (09:50)
[2020-08-17] MEDS: FAMOTIDINE 10 MG TABLET PO SCH (09:51)
[2020-08-17] MEDS: APIXABAN 5 MG TABLET PO SCH (09:51)
[2020-08-17] MEDS: ROSUVASTATIN CALCIUM 5 MG TAB PO SCH (09:52)
[2020-08-17] MEDS: FERROUS SULFATE 325 MG TAB PO SCH (09:52)
[2020-08-17] MEDS: ASPIRIN 81 MG ECTAB PO SCH (09:53)
[2020-08-17] MEDS: MULTIVITAMIN TAB PO SCH (09:53)
[2020-08-17] MEDS: CITALOPRAM 20 MG TAB PO SCH (09:54)
[2020-08-17] MEDS: KETOROLAC 0.5% OP SOLN 5 ML BTL OPR SCH ×2 (09:55→12:49)
[2020-08-17] MEDS: BACITRACIN OINT 15 GM TUBE EXT PRN (10:28)
--- NOTE | 2020-08-17 11:30 | Discharge Summary ---
Date of Service August 17, 2020 Admission HPI Per Admitting Provider This is a 75-year-old male who has significant past medical history of CAD status post CABG x2, bioprosthetic AVR replacement, moderate aortic root enlargement 4.6 cm, HTN, HLD, post knee replacement DVT PE, history of pulmonary nodules, anticoagulated on Eliquis, NICOLE on BiPAP, PAF, CKD stage III, BPH, morbid obesity, asthma who presents to ED secondary to left knee pain inability to ambulate x3 days. Of significance patient underwent left total knee replacement on 08/[address] Caicedo at [facility]. He was discharged to home on 08/04 and upon returning home when he was trying to get out of the car he fell on his left knee and hit it on the curb. He had called fire department to assist him in getting up. When the fire department got him into the house they placed him in a recliner. Throughout the night at approximately 2 AM his recliner collapsed and he has been unable to get out of the recliner since. He summoned EMS due to increased left knee pain, swelling and inability to ambulate. He lives at home with his who he states is also disabled and a, "invalid." He has been able to take oxycodone which has been helping his pain. He does complain of, "burpitis." He has frequent belching and chest tightness which he states, "this feels very similar to when I had a PE after my right knee surgery." He denies any cookie chest pain or shortness of breath. He does elicit a cough that is been present since surgery, productive and white mucus. Overall he has had minimal appetite since and able to walk. He has not seen physical therapy or occupational therapy since being discharged from the hospital. He has not been in contact with his surgeon. He denies any fever, chills, sweats, lightheadedness, dizziness, shortness of breath, vomiting, abdominal pain, diarrhea, dysuria, increased urgency or frequency with urination. In ED patient remained hemodynamically stable. Knee x-ray reveals postsurgical changes of the left TKR. His CBC was consistent with mild elevation WBC 11.08, H&H 10.3 and 29.7, platelet 153, sodium 134, BUN 24, creatinine 1.34, Phos 2.4, mag 2.5, albumin 3.0. His urinalysis was negative.Head CT was negative.Chest x-ray revealed a patchy density in the left lung base which could represent atelectasis or pneumonia. Patient was recommended for admission due to inability to ambulate and for PT OT evaluation. Admission Exam Per Admitting Provider Constitutional: WD/WN, morbidly obese, male, vitals as above, NAD, sitting up in bed, pleasant, conversing easily Head: Normocephalic, Atraumatic Eyes: PERRL, conjunctivae normal, anicteric sclerae ENMT: external ear and nose normal, oropharynx normal Neck: trachea midline, no thyromegaly normal visual inspection Respiratory: normal respiratory effort, lungs clear to auscultation, no wheeze, rales, rhonchi. Normal insp/exp effort, no accessory muscle use Cardiovascular: Irregular rate, irregular rhythm, no murmur, +3 left lower extremity pitting edema, left knee janis intact, surrounding erythema and warmth, negative Homans, lateral pedal pulse +2 vessels: no JVD or carotid bruit Chest: normal inspection of chest Abdomen: Obese abdomen, normal bowel sounds, soft, nontender, no hepatosplenomegaly Musculoskeletal: no cyanosis or clubbing, extremities motor strength 5/5 Skin: no rashes, warm and dry normal turgor Neurologic: PERRL, EOMI, accommodation nl, no face palsy, no dysarthria CN's II-XI intact bilaterally and moves all extremities Psychiatric: A+Ox3, euthymic affect Lymphatic: no cervical or axillary lymphadenopathy : deferred Principal Diagnosis Left leg cellulitis Recent left total knee replacement Ambulatory dysfunction Atrial fibrillation with rapid ventricular response BRIANA-resolving Discharge Exam CONSTITUTIONAL: obese, vitals as above, generally well-appearing EYES: normal conjunctivae, no scleral icterus ENT: external ear and nose normal, MMM RESPIRATORY: clear to auscultation bilaterally, no crackles, rales or wheezes, normal respiratory effort CARDIOVASCULAR: regular rate and rhythm, S1 and 2 heard without murmurs, gallops or rubs, no JVD, no peripheral edema GASTROINTESTINAL: soft, nontender, nondistended. MUSCULOSKELETAL: strength 5/5 throughout, limited ROM of left knee. Vertical incision across left patella still closed with janis. SKIN: warm and dry, incision as above. NEUROLOGIC: CN 2-12 grossly intact, no sensory deficit, normal cognition, normal speech. PSYCHIATRIC: alert cooperative and oriented to person, place and time. Discharge Data Allergies Allergy/AdvReac Type Severity Reaction Status Date / Time latex Allergy Mild Rash Verified 08/07/20 16:37 Consultations 08/07/20 17:06 ED Decision to Admit Stat 08/07/20 21:25 Consult Cardiology Routine Consult Orthopedic Surgery Routine 08/09/20 11:09 Consult General Surgery Routine 08/14/20 12:37 Consult Anesthesiology Routine Procedures Performed Operation Date: 08/15/20 14:15 Actual Procedures p Echo Transesophageal - Chivo Berger DO s Cardioversion - Chivo Berger DO s Echo Color Flow - Chivo Berger DO Ordered Studies Laboratory Results WBC 10.05 K/uL (4.8-10.8) 08/16/20 07:38 RBC 3.05 M/uL (4.7-6.1) L 08/16/20 07:38 Hgb 10.0 g/dL (14.0-18.0) L 08/16/20 07:38 Hct 30.5 % (42-52) L 08/16/20 07:38 MCV 100.0 fL (80-100) 08/16/20 07:38 MCH 32.8 pg (25-34) 08/16/20 07:38 MCHC 32.8 g/dL (32-36) 08/16/20 07:38 RDW Std Deviation 49.3 fL (36.4-46.3) H 08/16/20 07:38 RDW Coeff of Ej 13.6 % (11.5-14.5) 08/16/20 07:38 Plt Count 364 K/uL (130-400) 08/16/20 07:38 MPV 9.2 fL (7.4-10.4) 08/16/20 07:38 Immature Gran % (Auto) 0.5 % 08/08/20 08:10 Neut % (Auto) 71.7 % 08/08/20 08:10 Lymph % (Auto) 11.4 % 08/08/20 08:10 [place] % (Auto) 14.7 % 08/08/20 08:10 Eos % (Auto) 1.5 % 08/08/20 08:10 Baso % (Auto) 0.2 % 08/08/20 08:10 Neut # (Auto) 6.33 K/uL (1.4-6.5) 08/08/20 08:10 Lymph # (Auto) 1.01 K/uL (1.2-3.4) L 08/08/20 08:10 [place] # (Auto) 1.30 K/uL (0.11-0.59) H 08/08/20 08:10 Eos # (Auto) 0.13 K/uL (0-0.5) 08/08/20 08:10 Baso # (Auto) 0.02 K/uL (0-0.2) 08/08/20 08:10 Immature Gran # (Auto) 0.04 K/uL (0.00-0.02) H 08/08/20 08:10 ESR 74 mm/hr (0-20) H 08/07/20 14:50 Sodium 137 mmol/L (136-145) 08/17/20 08:51 Potassium 4.6 mmol/L (3.5-5.1) 08/17/20 08:51 Chloride 106 mmol/L (98-107) 08/17/20 08:51 Carbon Dioxide 27 mmol/L (21-32) 08/17/20 08:51 Anion Gap 4.0 (3-11) 08/17/20 08:51 BUN 24 mg/dl (7-18) H 08/17/20 08:51 Creatinine 1.21 mg/dl (0.6-1.4) 08/17/20 08:51 Est Cr Clr Drug Dosing 65.4 ml/min 08/17/20 08:51 Est GFR ( Amer) 67.0 ml/min 08/17/20 08:51 Est GFR (Non-Af Amer) 57.8 ml/min 08/17/20 08:51 BUN/Creatinine Ratio 20.1 (10-20) H 08/17/20 08:51 Glucose 137 mg/dl (70-99) H 08/17/20 08:51 Calcium 9.2 mg/dl (8.5-10.1) 08/17/20 08:51 Phosphorus 3.2 mg/dl (2.5-4.9) 08/13/20 05:32 Magnesium 2.4 mg/dl (1.8-2.4) 08/13/20 05:32 Total Bilirubin 1.0 mg/dl (0.2-1) 08/15/20 08:15 Direct Bilirubin 0.4 mg/dl (0-0.2) H 08/07/20 14:50 AST 22 U/L (15-37) 08/15/20 08:15 ALT 23 U/L (12-78) 08/15/20 08:15 Alkaline Phosphatase 78 U/L (45-117) 08/15/20 08:15 Troponin I < 0.015 ng/ml (0-0.045) 08/07/20 14:50 C-Reactive Protein 21.60 mg/dl (0-0.29) H 08/07/20 14:50 Total Protein 7.0 gm/dl (6.4-8.2) 08/15/20 08:15 Albumin 2.8 gm/dl (3.4-5.0) L 08/15/20 08:15 Globulin 4.2 gm/dl (2.5-4.0) H 08/15/20 08:15 Albumin/Globulin Ratio 0.7 (0.9-2) L 08/15/20 08:15 Lipase 47 U/L (73-393) L 08/07/20 14:50 Procalcitonin 0.21 ng/ml (0-0.5) 08/07/20 14:50 TSH 3.330 uIu/ml (0.300-4.500) 08/14/20 07:39 Urine Color Yellow 08/07/20 15:15 Urine Appearance Clear (Clear) 08/07/20 15:15 Urine pH 5.5 (4.5-7.5) 08/07/20 15:15 Ur Specific [place] 1.015 (1.000-1.030) 08/07/20 15:15 Urine Protein 1+ (Negative) H 08/07/20 15:15 Urine Glucose (UA) Negative (Negative) 08/07/20 15:15 Urine Ketones Negative (Negative) 08/07/20 15:15 Urine Blood 1+ (Negative) H 08/07/20 15:15 Urine Nitrite Negative (Negative) 08/07/20 15:15 Urine Bilirubin Negative (Negative) 08/07/20 15:15 Urine Urobilinogen Negative (Negative) 08/07/20 15:15 Ur Leukocyte Esterase Negative (Negative) 08/07/20 15:15 Urine WBC (Auto) 1-5 /hpf (0-5) 08/07/20 15:15 Urine RBC (Auto) 5-10 /hpf (0-4) H 08/07/20 15:15 U Hyaline Cast (Auto) 1-5 /lpf (0-5) 08/07/20 15:15 U Epithel Cells (Auto) 0-5 /lpf (0-5) 08/07/20 15:15 Urine Bacteria (Auto) Negative (Negative) 08/07/20 15:15 Vancomycin Trough 21.3 mcg/ml (See Comment) 08/09/20 12:01 COVID-19 Eval Order Covid19 at [facility] 08/07/20 14:50 SARS-CoV-2 (PCR) NEGATIVE (Negative) 08/07/20 14:50 Impressions Chest X-Ray 08/07/20 14:41 XR chest 1V portable HISTORY: Atypical Chest Pain COMPARISON: None. FINDINGS: There is a punctate calcified granuloma within the right lung apex. No pneumothorax. No pleural effusions. Small patchy density at the left lung base. The heart is enlarged. There are poststernotomy changes. No evidence for pulmonary edema. IMPRESSION: 1. Mild cardiomegaly. 2. Patchy density at the left lung base. This could represent atelectasis or pneumonia. ACT 112: Negative or not required by law. Electronically signed by: Sage Silva M.D. 08/07/2020 3:[address] 08/07/20 14:41 CT OF THE HEAD WITHOUT CONTRAST CLINICAL HISTORY: confusion, on Eliquis COMPARISON STUDY: Head CT December 27, 2014. CT DOSE: 614.27 mGy.cm TECHNIQUE: Helical axial images of the head were obtained without IV contrast. Automated exposure control was utilized for the study. A dose lowering technique was utilized adhering to the principles of ALARA. FINDINGS: No acute intracranial hemorrhage, midline shift or mass effect is present. The ventricular system is unremarkable. White matter hypodensity suggests small vessel disease. The basal cisterns are patent. No extra-axial collections are present. There are no findings to suggest acute dural sinus thrombosis or acute territorial infarct. No significant calvarial abnormalities are present. Visualized portions of the sinuses and mastoid air cells are clear. IMPRESSION: No acute intracranial findings. ACT 112: Negative or not required by law. Electronically signed by: Sulaiman Diaz M.D. 08/07/2020 4:59 PM Knee X-Ray 08/07/20 14:41 XR knee LT 3V CLINICAL HISTORY: Left knee pain. COMPARISON: None. 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 There are anterior skin janis. There is mild soft tissue edema. No fractures are visualized. IMPRESSION: 1. Mild diffuse soft tissue edema 2. Postsurgical changes of a total left knee arthroplasty 2. No fractures or dislocations identified. ACT 112: Negative or not required by law. Electronically signed by: Edvin Floyd M.D. 08/07/2020 3:13 PM Venous Doppler Study 08/07/20 17:53 LEFT LOWER EXTREMITY VENOUS DOPPLER CLINICAL HISTORY: swelling COMPARISON STUDY: No previous studies for comparison. TECHNIQUE: Sonography of the deep venous system of the left lower extremity was performed. Compression and augmentation were evaluated. FINDINGS: The left common femoral, superficial femoral and popliteal veins were compressible. Augmentation was normal. Flow was shown within the deep calf vessels. IMPRESSION: No evidence of deep venous thrombus within the left lower extremity. ACT 112: Negative or not required by law. Electronically signed by: Sulaiman Diaz M.D. 08/07/2020 6:45 PM Chest CTA 08/07/20 17:54 CT ANGIOGRAPHY OF THE CHEST, PULMONARY EMBOLUS PROTOCOL CLINICAL HISTORY: Shortness of breath. Evaluate for pulmonary embolus. COMPARISON STUDY: Chest radiograph July 20, 2008 and August 07, 2020. TECHNIQUE: Following IV administration of 117 mL of Optiray, helical axial images of the chest were obtained utilizing the pulmonary embolus protocol. Maximal intensity projections and sagittal and coronal reformats were viewed on an independent 3D workstation. IV contrast was administered without compli cation. Automated exposure control was utilized for the study. A dose lowering technique was utilized adhering to the principles of ALARA. CT DOSE: 960.64 mGy.cm FINDINGS: No pulmonary emboli are identified. There is mild dilatation of the central pulmonary arteries. There are median sternotomy wires and postoperative findings from bypass grafting. Moderate cardiomegaly is noted. There is no thoracic aortic dissection. Extensive coronary artery calcification is present. There is mild wall thickening of the distal esophagus with a small possible small hiatal hernia. There is a mildly enlarged subcarinal lymph node that measures 1.3 cm in short axis diameter. No pneumothorax or pleural effusion is noted. There is no consolidation to suggest pneumonia. The central airways are patent. No suspicious lesions or acute fractures are identified within the visualized skeletal structures. Pancreatic glandular atrophy is noted. IMPRESSION: 1. No pulmonary emboli identified. 2. No consolidation to suggest pneumonia. 3. Mild distal esophageal wall thickening which is nonspecific but favors esophagitis. 4. Mildly enlarged subcarinal lymph node is also nonspecific. A follow-up chest CT in 6 months is recommended. 5. Moderate cardiomegaly. Dilatation of the central pulmonary arteries which raises the possibility of pulmonary arterial hypertension. ACT 112: Negative or not required by law. Electronically signed by: Sulaiman Diaz M.D. 08/07/2020 7:46 PM Hospital Course (1) PAF (paroxysmal atrial fibrillation): (2) Fall: (3) Status post total knee replacement, left: (4) Ambulatory dysfunction: (5) CAD (coronary artery disease): (6) S/P AVR: The patient is a 75-year-old man who presented after a fall on recently replaced prosthetic knee joint on the left. He initially was admitted to the hospitalist service and appeared to have what looks like a cellulitis of the le ft upper leg. He had significant ambulatory dysfunction. He was initially started on vancomycin and ceftriaxone and orthopedics was consulted. The following day and ultrasound was negative for DVT. Per orthopedics with the exception of above average swelling to his left lower extremity the knee appeared to be in the appropriate postoperative stage of healing and rice therapy was recommended. There was a blister found on his left foot and surgery was consulted. It would normally be okay to let these spontaneously drained however there was a request to do remove the area so patient could start wearing PIERCE hose and socks and get working on ambulating sooner. This was performed at bedside and the wound was dressed with bacitracin Adaptic and Kerlix wrap daily. Antibiotics were transitioned to Keflex and he continued to improve clinically. On 08/11 he went into atrial fibrillation with rapid ventricular response. Amiodarone was started at a loading dose and his diltiazem was put on hold. He was notably consistently coagulated on apixaban. The following day his rate had still not slowed since the initiation of amiodarone and oral diltiazem was added back and short acting multi daily dose amounts. Per cardiology and SEBASTIAN guided cardioversion was performed on 08/15. He remained in sinus rhythm thereafter. During the SEBASTIAN hypokinesis of the left atrial appendage was noted without evidence of thrombus. Mild global left ventricular hypokinesis was noted. Stable prosthetic valve function was also noted at time of SEBASTIAN. Ambulation was increased as tolerated from a physical therapy standpoint. His janis were removed prior to discharge after speaking with his orthopedic surgeon, Dr. Caicedo. Specifically, every other staple was removed with a follow-up with outpatient orthopedics in [facility] following discharge. Creatinine bumped to 1.4 close to discharge but then resolved prior to leaving the hospital. Per therapy recommendation fpc facility would be preferable, however, the patient declined as he has a with medical issues at home who depends on him. He was sent home with home health in stable condition. Total Time Total Time Spent Total Time Spent (In Minutes): 60 Total Time Includes: Examination of the Patient, Discharge Planning, Medication Reconciliation and Communication With Other Providers Discharge Plan Discharge Items Patient Disposition: Home - Home Health Services Reason For Visit: KNEE PAIN, AMBULATORY DYSFUNCTION Discharge Diagnosis: Left leg cellulitis Recent left total knee replacement Ambulatory dysfunction Atrial fibrillation with rapid ventricular response Condition on Discharge: Good Activity: As commented below Activity Comment: Per PT recommendations Non-emergency contact: Primary Care Provider Call non-emergency contact if: you have any medication questions and your symptoms worsen Follow-up/Referrals: Hieu Franz PA-C [Outside Practitioners] - (Date & Time 08/21/2020 3:30 PM Provider Hieu Franz PA-C Department Orthopaedics [facility] ) Lio Parker DO [Outside Practitioners] - (Date & Time 08/21/2020 11:00 AM Provider Lio Parker DO Department Family Practice [facility] ) Diet: Heart Healthy Addtl Attending Provider Instructions: Mr Das. You came to the hospital with difficulty to ambulate for a few days after getting recent left total knee replacement on 08/03/2020 You were initially thought to have an infection in the knee and were started on antibiotics, but Orthopedics felt this was not the case. Antibiotics were stopped. You went into rapid atrial fibrillation and required a SEBASTIAN cardioversion by cardiology with adjustment in your medications. On a chest cat scan (CT) performed during your stay, they saw a mildly enlarged subcarinal lymph node. A follow-up chest CT in 6 months is recommended. On 08/17, every other staple was removed from your left knee incision site. Please follow up at You are being discharged to home with home health services for continued therapy. Please ensure follow up with your Primary Doctor and orthopedic surgeon. It was a pleasure taking care of you Addtl Laundry Clerk Provider Instructions: Prior to hospital dose of diltiazem CD 300 mg daily has been reduced to 180 mg daily. Amiodarone 200 mg twice daily is a new medication. Metoprolol succinate 25 mg daily is a new medication. Cardiology follow-up within 1 month to be arranged. Pending Studies at Discharge: No Stand-Alone Forms: My [facility] Medications and DC Order Prescriptions: New famotidine [Acid Generator Worker (famotidine)] 10 mg Tablet 10 mg PO BID 30 Days Qty: 60 RF: 0 diltiazem HCl 180 mg Capsule,Extended Release 24hr 180 mg PO QAM Qty: 30 RF: 1 amiodarone 200 mg Tablet 200 mg PO BIDM Qty: 60 RF: 1 metoprolol succinate 25 mg Tablet Extended Release 24 Hr 25 mg PO QAM Qty: 30 RF: 1 Continued fluticasone propion-salmeterol [Advair Diskus] 250-50 mcg/dose Blister With Device 1 inh INHALATION BID PRN (Reason: Shortness Of Breath) RF: 0 multivitamin Tablet 1 tab PO QAM RF: 0 clobetasol [Temovate] 0.05 % Cream 1 applic TOPICAL DAILY PRN (Reason: Rash) RF: 0 aspirin 81 mg Tablet,Delayed Release (Dr/Ec) 81 mg PO QAM RF: 0 amoxicillin 500 mg Tablet 500 mg PO UD PRN (Reason: dental procedures) RF: 0 citalopram 20 mg Tablet 20 mg PO QAM RF: 0 erythromycin 5 mg/gram (0.5 %) Ointment 1 applic OPHTHALMIC (EYE) DAILY PRN (Reason: FOR STY ON EYE) RF: 0 triamcinolone acetonide [Nasacort] 55 mcg Aerosol,[place] 1 spray INTRANASAL BID RF: 0 calcium polycarbophil [FiberCon] 625 mg Tablet 1 dose PO DAILY RF: 0 imiquimod [Aldara] 5 % Cream In Packet 1 dose TOPICAL UD PRN (Reason: Rash) RF: 0 lactic acid Cream 1 applic TOPICAL UD PRN (Reason: Rash) RF: 0 ketorolac 0.5 % drops 1 drp OPR QID RF: 0 terazosin 2 mg capsule 2 mg PO HS RF: 0 rosuvastatin 5 mg tablet 5 mg PO DAILY RF: 0 Eliquis 5 mg tablet 5 mg PO BID RF: 0 ferrous sulfate 325 mg (65 mg iron) Tablet 325 mg PO DAILY RF: 0 Discontinued diltiazem HCl 300 mg Tablet Extended Release 24 Hr 300 mg PO QAM RF: 0 oxycodone 5 mg Tablet 5 mg PO Q6H PRN (Reason: Pain) RF: 0 Discharge Orders: Discharge Order (Routine); Ordered 08/17/20 Ordered By: Lena Sanders Admission Data Admit Date/Time: 08/07/20 22:40 Attending Provider: Lena Sanders Admit Provider: Lena Sanders Primary Care Provider: Chivo Cavazos Other Providers: Lena Sanders ; Arnold Wheeler ; Nav Chan ; Felipe Graves ; Emanuel Anand ; [facility] ; [place],[facility] ; Sage Peck Other Interventions: Discharge Summary Assessment (RN) Last Done: 08/17/20 14:10 Home Health Attestation I certify that this patient is under my care and that I, or a physicians culture media laboratory assistant working with me, had a face to-face encounter that meets the home health [id number] encounter requirements with this patient. The encounter with the patient was in whole, or in part, for the following medical condition, which is the primary reason for home health care (list m edical condition): L TKR, knee pain, ? cellulitis I certify that, based on my findings, the following services are medically necessary home health services: My clinical findings support the need for the above services because: Medication Compliance and Monitoring Effective of New Medications OT Assess ADL Status and Restore Function w ADLs PT Assessment for Endurance / Balance / Strength PT Eval for Safety and Mobility PT Eval for Safety, Gait Training, Assistive Devices PT Gait and Balance Training, Strengthening and Safety Skilled Nsg Assessment Skilled Nsg Assessment Surgical Incision / Wound Skilled Nsg Assess Pt Illness, Disease and Sx Monitoring S/S to Report to Provider Further, I certify that my clinical findings support that this patient is homebound (i.e. absences from home require considerable and taxing effort and are for medical reasons or restorationist services or infrequently or of short duration when for other reasons) because: Supportive Aid - Walker Transportation Assistance/Unable to Leave Home Unassisted Certification for Home Health Services: Based on the above findings, I certify that this patient is confined to the home and needs intermittent fpc care, physical therapy and/or speech therapy or continues to need occupational therapy. The patient is under my care, and I have initiated the establishment of the plan of care. This patient will be followed by a physician who will periodically review the plan of care.
[2020-08-17] MEDS ORDERED: METOPROLOL SUCC 25MG EXT REL TAB PO SCH (12:00)
--- NOTE | 2020-08-17 12:14 | Cardiology Progress Note ---
Date of Service August 17, 2020 Assessment & Plan (1) PAF (paroxysmal atrial fibrillation): (2) Total knee replacement status: (3) Postoperative pain of left knee: (4) Generalized weakness: (5) Hx of CABG: (6) S/P AVR: 75-year-old male well-known to the undersigned with history of CABG and bioprosthetic aortic valve replacement. A year ago after having right total knee replacement, he was diagnosed with a DVT and pulmonary embolism, prompting anticoagulation. He subsequently was diagnosed with paroxysmal atrial fibrillation/atrial flutter, and had been in sinus rhythm at the time of his preoperative EKG in May,. He underwent left knee replacement by Dr. Caicedo at [facility] on 08/03/2020. He presented via the emergency room to the [facility] on 08/07/2020 after a mechanical fall with noted significant swelling in his left (postoperative) knee. Recurrent atrial flutter with rapid ventricular response noted. Rapid ventricular rates persisted, and oral amiodarone was initiated, with subsequent transesophageal echocardiogram guided direct-current cardioversion performed by the undersigned on 08/15/2020. The procedure was complicated by a mild chip in his right front tooth. He has made progress with physical therapy, and remains in sinus rhythm with occasional PVCs and occasional ventricular bigeminy as of today, 08/17/2020. Patient stable for discharge from cardiac perspective with the following medication plan: He is to remain on Eliquis 5 mg twice daily. He has been on diltiazem CD 300 mg dating back to 2002. -This dose is to be reduced to 180 mg daily. -Amiodarone 200 mg twice daily to be continued at discharge. -Baseline liver function tests, thyroid function tests stable. -Metoprolol succinate 25 mg daily added. -Patient was noted to have moderate tricuspid valve regurgitation on transesophageal echocardiogram. Mildly enlarged subcarinal lymph node noted on CT of the chest for which a follow-up CT is recommended in [address] angiogram performed this admission 08/07/2020 was negative for pulmonary embolism. We will arrange postoperative cardiology follow-up in a month, he also has a appointment with me in November which will be kept. Admission and Anticipated Discharge Date Admission Date: August 07, 2020 Subjective Patient seen in cardiology follow-up. He remains well. His knee was examined with the dressing removed, mild ecchymosis, no drainage from his incision which is approximated well with janis intact.Dr Sanders at bedside discussing plans with regards to staple removal. Physical Exam Physical Exam: Temp Pulse Resp BP Pulse Ox 36.5 C 73 18 145/66 H 94 08/17/20 07:08 08/17/20 07:43 08/17/20 07:08 08/17/20 07:08 08/17/20 07:08 Constitutional: WD/WN, vitals as above Cardiovascular: Rate/Rhythm: regular rhythm Vessels: no JVD Extremities: + edema (Mild operative edema at the left knee and lower leg, trending toward improv) Gastrointestinal (Abdomen): normal bowel sounds, soft, nontender, no hepatosplenomegaly Neurologic: PERRL, EOMI, accommodation nl, no face palsy, no dysarthria Results & Data ([facility]) Vital Signs (Past 12 Hours) Vital Signs Temp Pulse Pulse Resp BP Pulse Ox 08/17/20 07:43 73 08/17/20 07:08 36.5 C 80 18 145/66 H 94 08/17/20 03:30 73 15 96 08/17/20 03:29 36.6 C 53 L 16 140/53 L 91 Laboratory Results Comprehensive Metabolic Panel 08/17/20 Range/Units 08:51 Sodium 137 (136-145) mmol/L Potassium 4.6 (3.5-5.1) mmol/L Chloride 106 (98-107) mmol/L Carbon Dioxide 27 (21-32) mmol/L BUN 24 H (7-18) mg/dl Creatinine 1.21 (0.6-1.4) mg/dl Glucose 137 H (70-99) mg/dl Calcium 9.2 (8.5-10.1) mg/dl Intake and Output 08/16/20 08/17/20 08/17/20 22:59 06:59 14:59 Intake Total 300 / 840 300 / 840 Output Total 200 / 2800 1400 / 2800 Balance 100 / -1959 -1099 / Intake: Oral 300 / 840 300 / 840 Output: Urine 200 / 2800 1400 / 2800 Other: Weight 119.8 kg Weight Measurement Method Built in [facility]
[2020-08-17] MEDS ORDERED: dilTIAZem HCL 180 MG CAPCR PO SCH (12:15)
[2020-08-17] MEDS: CALCIUM POLYCARBOPHIL 625MG TAB PO SCH (12:19)
[2020-08-17] MEDS ORDERED: AMIODARONE 200 MG TAB PO SCH (17:00)
== END 2020-08-17 15:04 | disposition home health service (06) | DRG 574 ==
LOC: ED 13:47 → 2W 13:47 → SUATTDRO 22:40 → UNDODISIN 08-17 14:22